=== PATIENT | male | born 1950 | race Caucasian/White ===

== ENCOUNTER → 2018-04-06 12:47 | Outpatient (REF) | payer MEDICARE, SELFPAY ==
[2018-04-06 19:13] LABS: Anion Gap 9.9 mmol/L (3-11); BUN 19 mg/dL (7-18); CO2 29.1 mmol/L (21.0-32.0); CREATININE 1.38 mg/dL (0.70-1.30); Chloride 102 mmol/L (98-107); Estimated GFR 51.24 (mL/min/1.73m2); Glucose 123 mg/dL (70-100); Potassium 3.9 mmol/L (3.5-5.1); Sodium 141 mmol/L (136-145)
== END ==
LOC: NCHCN 12:47
PROVIDERS: PCP Family Medicine; Visit Provider Family Medicine
DX: N28.9 Disorder of kidney and ureter, unspecified (principal)
CPT/HCPCS: 80048

== ENCOUNTER → 2018-04-16 00:30 | Outpatient (CLI) | payer MEDICARE, SELFPAY ==
--- NOTE | 2018-04-16 08:45 | MERGEMPI_ITS ---
*[facility]* *[facility]* [address] [place] [address] Myocardial Perfusion Imaging - SPECT Regadenoson Date of study: 04/16/2018 *PATIENT PRESENTATION* Height: 165.1cm (65in) Blood Pressure: Weight: 91.8kg (202lb) BSA: 2.09m^2 Referring physician: Kisha Owen Ordering physician: Tierney Jordan Impressions: - Abnormal study after pharmacologic stress. - Rec cardiac catheterization on basis of perfusion imaging. Summary: 1. Myocardial perfusion imaging: There is a moderate sized, moderately intense, predominantly reversible defect involving the inferior wall(s). This suggests moderate ischemia in the distribution of the right coronary artery. Overall ischemia: moderate. 2. No left ventricular regional motion abnormality. History: REASON FOR TESTING: RECENT CHEST PAIN WHILE IN HIS DOCTOR'S OFFICE. THIS IS DESCRIBED LEFT SIDEDPAIN THAT RADIATED UNDER LEFT ARM. PMH: AAA, COPD, DIABETES, GERD, ANXIETY, BIPOLA DISORDER. FAMILY HX: NONE SMOKING: QUIT 25 YEARS AGO. HAD SMOKED MUCH 2PPD. EXCERCISE: HAD BEEN WALKING 2.5 MILES DAILY, UNTIL IT GOT TOO HOT THIS SUMMER. PMH: COPD. Risk factors: Diabetes mellitus. Obesity. Cholesterol: 203mg/dl. HDL: 74mg/dl. LDL: 121mg/dl. Triglycerides: 80mg/dl. ALLERGIES: NSAIDS, ANTI-INFLAMMATORIES, ACETAMINOPHEN, LISINOPRIL. MEDICATIONS: ALBUTEROL SULFATE 8.5 GM 2 PUFFS Q6H NEEDED, ASPIRIN 325 MG 2 TABS NEEDED, BETAMETHASONE VALERATE 15 GM Q12 HS, CITALOPRAM 30 MG DAILY, CLOBETASOL PROPIIONATE 50 ML TOPICAL Q12H NEEDED, SLONAZEPAM 0.5 MG BID, DIPHENHYDRAMINE 25-50 MG NEEDED, FLUTICASONE PROPIONATE 2 SPRAYS NEEDED, FLUTICASONE/SALMETROL 500-50 2 PUFFS BID. Imaging Technique: Protocol: Regadenoson. Acquisition: Gated SPECT; 1 day - rest/stress. The patient was imaged in the supine position. Attenuation correction used. Isotope administration: - Rest. Tc[99m]-sestamibi. Dose: 10.4mCi. Injection time: 08:50 AM. Injection to stress time: 00:45. - Stress. Tc[99m]-sestamibi. Dose: 33.2mCi. Injection time: 11:05 AM. 1-2 min before end of exercise Baseline ECG: LAST EKG 11/05/14- SINUS RHYTHM. TODAY'S EKG-SINUS BRADYCARDIA, HR 56. Stress protocol: +--------+--+ + + !Stage !HR!BP (mmHg) !Comments ! +--------+--+ + + !Baseline!57!131/70 (90)! ! +--------+--+ + + !1 min !75!130/60 (83)!Inject Regadenoson.! +--------+--+ + + !3 min !90!124/70 (88)! ! +--------+--+ + + !6 min !84!120/76 (91)! ! +--------+--+ + + !9 min !79!118/60 (79)! ! +--------+--+ + + * Stress results: The rate-pressure product for the peak heart rate and blood pressure was [id number] Hg/min. Stress ECG: LEXISCAN TESTING ENDED IN 9 MINS, 0 SECS VITAL SIGNS RETURNED TO BASELINE. MAX HR WAS 100, WITH A HYPOTENSIVE BLOOD PRESSURE RESPONSE. ECTOPY: NONE NOTED. ANGINA: PT REPORTED 6/10 LEFT SIDED CHEST PAIN AT 1 MINUTE OF TESTING, 5/10 AT 3 MINS, 3/10 AT 5 MINS, AND 0/10 AT DISCHARGE. ISCHEMIA: NO ISCHEMIC CHANGES NOTED. Myocardial perfusion: Imaging information: gated. There is a moderate sized, moderately intense, predominantly reversible defect involving the inferior wall(s). This suggests moderate ischemia in the distribution of the right coronary artery. Overall ischemia: moderate. Ventricular Function (Wall Motion): The calculated left ventricular ejection fraction after stress: 50%. No left ventricular regional motion abnormality. Study data: Cyril Avalos MD supervised and was readily available during the procedure. This study was interpreted by [facility]. Study status: Routine. Consent: The risks, benefits, and alternatives to the procedure were explained to the patient and informed consent was obtained. Procedure: Initial setup. A baseline ECG was recorded. Surface ECG leads and manual cuff blood pressure measurements were monitored. Heart sounds: Normal. Lung sounds: Normal. Regadenoson stress test. Stress testing was performed, with regadenoson by intravenous bolus, for a total dose of 0.4mgover 10.00sec, followed by a 5ml saline flush. The infusion was terminated due to per protocol. The patient was unable to exercise due to deconditioning and or frailty. Study completion: All catheters inserted during the procedure were removed. The patient tolerated the procedure well and was discharged from the lab. Discharge: The patient left the laboratory in stable condition. Birthdate: Patient birthdate: 1950. Sex: Gender: male. Study date: Study date: 04/16/2018. Study time: 12:30 PM. Electronically signed by Cyril Avalos MD 04/16/2018 17:34
[2018-04-16] MEDS: Regadenoson 0.4 MG/5 ML SYR IVP (10:59)
== END ==
PROVIDERS: PCP Family Medicine; Visit Provider Family Medicine
DX: R07.9 Chest pain, unspecified (principal); R06.02 Shortness of breath; R94.30 Abnormal result of cardiovascular function study, unspecified; E11.9 Type 2 diabetes mellitus without complications; J44.9 Chronic obstructive pulmonary disease, unspecified; I71.4 Abdominal aortic aneurysm, without rupture; F41.9 Anxiety disorder, unspecified; Z87.891 Personal history of nicotine dependence
CPT/HCPCS: 78452; 93016 ×2; 93017; 93018 ×2; J2785

== ENCOUNTER 2018-05-03 11:57 | Outpatient (REF) | payer MEDICARE, SELFPAY ==
[2018-05-03 21:13] LABS: Prothrombin Time 9.9 sec (9.3-10.8)
[2018-05-03 21:15] LABS: ALT 36 U/L (12-78); AST 37 U/L (15-37); Albumin 3.6 g/dL (3.4-5.0); Alkaline Phosphatase 118 U/L (46-116); Anion Gap 5.6 mmol/L (3-11); BUN 27 mg/dL (7-18); Bilirubin, Total 0.5 mg/dL (0.2-1.0); CO2 29.4 mmol/L (21.0-32.0); CREATININE 1.29 mg/dL (0.70-1.30); Calcium 8.5 mg/dL (8.5-10.1); Chloride 104 mmol/L (98-107); Estimated GFR 55.39 (mL/min/1.73m2); Glucose 83 mg/dL (70-100); Potassium 4.2 mmol/L (3.5-5.1); Sodium 139 mmol/L (136-145); Total Protein 7.2 g/dL (6.4-8.2)
[2018-05-03 21:16] LABS: Abs Immature Grans 0.02 k/cumm (0.0-0.09); Absolute Basophil Count 0.04 k/cumm (0.0-0.2); Absolute Eosinophil Count 0.27 k/cumm (0.0-0.7); Absolute Lymphocyte Count 1.73 k/cumm (1.2-3.4); Absolute Monocyte Count 0.56 k/cumm (0.11-0.7); Absolute Neutrophil Count 6.07 k/cumm (1.2-6.7); Basophils % 0.5; Eosinophils % 3.1; HCT 48.2 % (40.0-50.0); HGB 15.6 g/dL (13.5-17.5); Immature Grans % 0.2; Lymphocytes % 19.9; Mean Corp. HGB Concentration 32.4 g/dL (32.0-36.0); Mean Corpuscular Hemoglobin 30.6 pg (27.0-33.0); Mean Corpuscular Volume 94.5 fL (80-95); Mean Platelet Volume 11.1 fL (8.0-11.0); Monocytes % 6.4; Neutrophils % 69.9; Platelet Count 139 x1000/uL (130-400); RBC Distribution Width 14.9 % (11.8-14.1); White Blood Cell Count 8.69 k/cumm (4.4-10.8)
== END 2018-05-03 12:17 ==
LOC: LBN 11:57
PROVIDERS: PCP Family Medicine; Visit Provider Internal Medicine Cardiovascular Disease
DX: R07.9 Chest pain, unspecified (principal)
CPT/HCPCS: 80053; 85025; 85610

== ENCOUNTER 2018-08-30 21:33 | Outpatient (REF) | payer MEDICARE, SELFPAY ==
[2018-08-30 22:19] LABS: ALT 37 U/L (12-78); AST 34 U/L (15-37); Albumin 3.7 g/dL (3.4-5.0); Alkaline Phosphatase 120 U/L (46-116); Anion Gap 11.3 mmol/L (3-11); BUN 21 mg/dL (7-18); Bilirubin, Total 0.9 mg/dL (0.2-1.0); CO2 28.7 mmol/L (21.0-32.0); CREATININE 1.27 mg/dL (0.70-1.30); Calcium 9.1 mg/dL (8.5-10.1); Chloride 101 mmol/L (98-107); Cholesterol 153 mg/dL (50-200); Glucose 74 mg/dL (70-100); HDL Cholesterol 61 mg/dL (40-60); LDL CHOLESTEROL 76 mg/dL (<100); Potassium 3.6 mmol/L (3.5-5.1); Sodium 141 mmol/L (136-145); Total Protein 7.1 g/dL (6.4-8.2); Triglyceride 75 mg/dL (30-150)
== END 2018-08-30 21:53 ==
LOC: NCHCN 21:33
PROVIDERS: PCP Family Medicine; Visit Provider Family Medicine
DX: N28.9 Disorder of kidney and ureter, unspecified (principal); E78.5 Hyperlipidemia, unspecified; I10 Essential (primary) hypertension
CPT/HCPCS: 80053; 80061; 83721

== ENCOUNTER 2018-12-29 04:37 | Emergency (ER) | payer MEDICARE, SELFPAY ==
[2018-12-29] VITALS (14 sets, daily range): BP systolic 114–118; BP diastolic 66–68; PULSE 62–81; RESP 10–24; TEMP 37.1; O2SAT 95–98
--- NOTE | 2018-12-29 04:47 | W.ED.GENAD ---
Discharge Plan Disposition Patient Disposition: HOME Condition: Good Discharge Details Chief Complaint: Chest Pain Clinical Impression: Atypical chest pain Primary Care Provider: Tierney Jordan V ED Provider: Pranay Ziegler [place] Meds and New Rx's Prescriptions: Continued albuterol sulfate 8.5 GM HFA aerosol inhaler 2 puff Inhalation Q6H PRN RF: 0 fluticasone propionate [Flonase] 16 GM spray,suspension 50 mcg NS BID PRNRF: 0 betamethasone valerate 15 GM ointment 15 gm Topical Q12H PRN RF: 0 pantoprazole [Protonix] 40 MG tablet,delayed release (DR/EC) 40 mg PO DAILY RF: 0 clobetasol 50 ML solution 50 ml Topical Q12H PRN RF: 0 clonazepam 0.5 MG tablet 0.5 mg PO BID RF: 0 ziprasidone HCl [Geodon] 20 MG capsule 20 mg PO BID RF: 0 triamcinolone acetonide 80 GM cream Topical PRN PRNRF: 0 citalopram 20 MG tablet 30 mg PO DAILY RF: 0 diphenhydramine HCl 25 MG capsule 25 - 50 mg PO PRN PRNRF: 0 fluticasone propion-salmeterol [Advair Diskus] 1 EACH blister with device 2 puff Inhalation BID RF: 0 hydrochlorothiazide 12.5 MG capsule 12.5 mg PO DAILY RF: 0 nitroglycerin 0.4 mg Tablet, Sublingual 0.4 mg Sublingual PRN PRNRF: 0 aspirin 325 MG tablet 2 tab PO PRN PRNRF: 0 Discharge Instructions Additional Instructions: Your EKG is normal. Your chest x-ray is unremarkable. Given normal cardiac catheterization last fall with a normal EKG and not suspicious at all that this is cardiac chest pain. Follow-up with primary care next week. Return to ED if you develop new and persistent chest pain, shortness of breath, fever. Referrals: Tierney Jordan MD [Primary Care Provider] - Medical Decision Making Patient presents to ED with complaint of fleeting sharp chest pain that lasts 10 seconds under his left breast. He has had it previously. He had a normal coronary catheterization in April 2018. He has no shortness of breath. He has no fever or cough. Pain is random and intermittent. Never last longer than 10 seconds. He does not have pain currently. I am able to reproduce his pain fairly focally with one fingertip under the left breast. His EKG is normal. Given his recent normal cardiac catheterization and his lack of exertional component with the random fleeting nature of the pain I do not at all feel this is cardiac. He has no change in his respiratory status. He has no shortness of breath. He is still able to walk a couple of miles. I do not suspect pulmonary embolus. I do not think laboratory studies are necessary at all. I will get a chest x-ray and if unremarkable will plan discharge with presumed chest wall pain and have him follow-up with primary care. Patient's chest x-ray per my review as well as preliminary radiology read is negative. Patient has remained stable in the department. He is discharged home with instructions to follow-up with primary care next week. Return to ED for fever, shortness of breath, persistent chest pain, other concerns or problems. Medical Records Medical records reviewed: Yes I reviewed the patient's medical records. ECG Data Attestation: I personally reviewed and interpreted this ECG (s) as follows: Interpretation: Normal sinus rhythm at 72. Normal axis and intervals. Normal ST segments. HPI General Mode of arrival: ambulatory. Date/Time Provider Initiated Documentation: 12/29/18 04:38. Limitations to Documentation: no limitations. Information obtained by: patient and old records reviewed. HPI Narrative: Patient presents to ED for evaluation of intermittent left-sided sharp stabbing chest pain. Patient has had it previously. He has not had it for a while until the last week. He describes it as a sharp stabbing pain that lasts for 10 seconds and resolves. It is random in nature. It comes and goes throughout the day and night. It is not associated with exertion. He walks a couple miles a day with no issues other than when he gets a little short of breath going uphill. He has had no change in his breathing. He has no fever or cough. There is no radiation of the pain. He decided that since he had to go to the store this morning that he would stop here in the ED just to have it checked out. He is currently not having pain. He had an abnormal stress test last year and underwent cardiac catheterization in April 2018 at [facility]. I have reviewed those records and he had a completely normal coronary artery cath. Related Data Home Medications Medication Instructions Recorded Confirmed citalopram 30 mg PO DAILY 11/30/12 12/29/18 clonazepam 0.5 mg PO BID 11/30/12 12/29/18 triamcinolone acetonide 0 gm TOPICAL PRN PRN 11/30/12 12/29/18 ziprasidone HCl [Geodon] 20 mg PO BID 11/30/12 12/29/18 albuterol sulfate 2 puff INHALATION Q6H PRN inhaler 10/02/13 12/29/18 NS fluticasone propionate [Flonase] 50 mcg NS BID PRN spray NS 10/02/13 12/29/18 diphenhydramine HCl 25 - 50 mg PO PRN PRN 10/23/13 12/29/18 betamethasone valerate 15 gm TOPICAL Q12H PRN script 06/06/14 12/29/18 clobetasol 50 ml TOPICAL Q12H PRN script 06/06/14 12/29/18 pantoprazole [Protonix] 40 mg PO DAILY tab-cap 06/06/14 12/29/18 fluticasone propion-salmeterol 2 puff INHALATION BID 11/05/14 12/29/18 [Advair Diskus] hydrochlorothiazide 12.5 mg PO DAILY 02/09/17 12/29/18 aspirin 2 tab PO PRN PRN 06/14/17 12/29/18 nitroglycerin 0.4 mg SUBLINGUAL PRN PRN 12/29/18 12/29/18 Allergies Allergy/AdvReac Type Severity Reaction Status Date / Time lisinopril Allergy Severe Unverified 12/29/18 04:57 NSAIDS (Non-Steroidal Allergy Severe tongue Unverified 12/29/18 04:57 Anti-Inflamma swells acetaminophen AdvReac Intermediate MONITORING Unverified 12/29/18 04:57 LIVER PANELS Review of Systems Review of Systems As documented in HPI otherwise negative as below. Const: no fever, chills, weakness Resp: no cough, SOB, pleuritic pain CV: fleeting CP; no diaphoresis, edema, syncope GI: no abdominal pain, nausea, vomiting, diarrhea Neuro: no headache, numbness, focal weakness, confusion PFSH Medical History AAA (abdominal aortic aneurysm) (Chronic) Anxiety (Chronic) Bipolar disorder (Chronic) COPD (chronic obstructive pulmonary disease) (Chronic) GERD (gastroesophageal reflux disease) (Chronic) HTN (hypertension) (Chronic) Hypercholesterolemia (Chronic) Surgical History Status post rotator cuff repair (Inactive 10/28/13) Status post excisioni distal clavicle, left (Inactive 10/28/13) H/O cataract extraction (Chronic) S/P hernia repair (Resolved) Colonoscopy - MAC (Inactive 06/19/17) Social History Smoking/Tobacco Use Status: Former Tobacco Use Alcohol Intake: former Drug use: Never Do you feel safe at home: Yes Do you feel safe in your relationship?: Yes Exam Narrative Exam Narrative: Vitals: Normal with normal pulse ox. Const: WDWN male in NAD. Neck: Supple. Trachea midline. Lungs: Normal respiratory effort. Lungs are clear. Cor: RRR without murmur/gallop. Good radial pulses. Chest: Focal reproducible chest wall pain with palpation just under left breast pain. GI: Soft. NT/ND. No guarding or rebound. Neuro: A+O x 3. CN grossly in tact. Good strength and no focal deficit. Ext: No C/C/E. No deformity or tenderness. Skin: Warm and dry without rash.
--- NOTE | 2018-12-29 05:30 | DI.RAD_ITS ---
SYMPTOM/DIAGNOSIS: CHEST PAIN PA AND LATERAL CHEST: The heart is not enlarged. The lungs appear generally clear with minimal left basilar scarring. No pleural effusion is seen. CONCLUSION: No evidence of acute disease. No change from 11/30/12.
--- NOTE | 2018-12-29 05:39 | DI.VRAD_ITS ---
EXAM: XR Chest, 2 Views EXAM DATE/TIME: 12/29/2018 5:34 AM CLINICAL HISTORY: 68 years old, male; Chest pain; Type not specified TECHNIQUE: Imaging protocol: XR of the chest, 2 views. COMPARISON: CR CHEST 2 VIEWS PA,LAT 11/30/2012 10:18 AM FINDINGS: Lungs: Unremarkable. No consolidation. Pleural space: Unremarkable. No evidence of pneumothorax. Heart/Mediastinum: Unremarkable. Heart size within normal limits for technique. Bones/joints: Unremarkable. IMPRESSION: No acute findings. Dictated and Authenticated by: Guero Wright MD. Ordering:AAKASH Pires MD
== END 2018-12-29 06:40 | disposition home or self-care (01) ==
PROVIDERS: Emergency Provider Emergency Medicine; PCP Family Medicine
DX: R07.89 Other chest pain (principal); I71.4 Abdominal aortic aneurysm, without rupture; I10 Essential (primary) hypertension; J44.9 Chronic obstructive pulmonary disease, unspecified
CPT/HCPCS: 93005; 99284; 71046; 93010

== ENCOUNTER 2019-01-08 12:14 | Outpatient (CLI) | payer MEDICARE, SELFPAY ==
[2019-01-08 12:36] LABS: Abs Immature Grans 0.01 k/cumm (0.0-0.09); Absolute Basophil Count 0.04 k/cumm (0.0-0.2); Absolute Eosinophil Count 0.28 k/cumm (0.0-0.7); Absolute Lymphocyte Count 1.81 k/cumm (1.2-3.4); Absolute Monocyte Count 0.58 k/cumm (0.11-0.7); Absolute Neutrophil Count 4.88 k/cumm (1.2-6.7); Basophils % 0.5; Eosinophils % 3.7; HCT 46.7 % (40.0-50.0); HGB 15.3 g/dL (13.5-17.5); Immature Grans % 0.1; Lymphocytes % 23.8; Mean Corp. HGB Concentration 32.8 g/dL (32.0-36.0); Mean Corpuscular Volume 94.5 fL (80-95); Mean Platelet Volume 9.9 fL (8.0-11.0); Monocytes % 7.6; Neutrophils % 64.3; Platelet Count 152 x1000/uL (130-400); RBC 4.94 m/cumm (4.50-6.00); RBC Distribution Width 15.1 % (11.8-14.1)
--- NOTE | 2019-01-08 12:40 | DI.RAD_ITS ---
SYMPTOMS/DIAGNOSIS: RT KNEE PAIN, M25.561 RIGHT KNEE: The joint spaces are well maintained. There is no significant periarticular spurring. No joint effusion is seen. Venous varicosities are noted in the calf region.
[2019-01-08 13:46] LABS: BUN 22 mg/dL (7-18); CREATININE 1.24 mg/dL (0.70-1.30); Calcium 9.1 mg/dL (8.5-10.1); Chloride 101 mmol/L (98-107); Estimated GFR 57.97 (mL/min/1.73m2); Glucose 113 mg/dL (70-100); NT-proBNP 26 pg/mL; Potassium 4.2 mmol/L (3.5-5.1); Sodium 140 mmol/L (136-145)
== END 2019-01-08 12:34 ==
PROVIDERS: PCP Family Medicine; Visit Provider Nurse Practitioner Family
DX: M25.561 Pain in right knee (principal); R06.09 Other forms of dyspnea
CPT/HCPCS: 36415; 73562; 80048; 83880; 85025

== ENCOUNTER 2019-01-11 01:16 | Outpatient (CLI) | payer MEDICARE, SELFPAY ==
--- NOTE | 2019-01-11 12:45 | DI.CT_ITS ---
SYMPTOMS/DIAGNOSIS: DYSPNEA ON EXERTION, R06.[address]: Post contrast exam was performed. The exam is limited by patient body habitus and respiratory motion. The heart size is normal. There is mild calcification at the aortic arch. The aorta is normal in diameter. There is mild atherosclerotic change of the descending aorta. No mass or adenopathy is seen. There are no pleural or pericardial effusions or evidence of infiltrates. The lungs are suboptimally evaluated due to respiratory motion. There is no evidence of a focal infiltrate. There are no visible pulmonary nodules or significant emphysematous or fibrotic changes. No suspicious bony abnormalities are identified. The visualized portions of the upper abdomen are unremarkable. IMPRESSION: Exam is somewhat limited by respiratory motion. No acute abnormality is seen.
[2019-01-11] MEDS: Omnipaque 350 MG/ML 100 ML BTL IJ (13:14)
== END 2019-01-11 01:36 ==
PROVIDERS: PCP Family Medicine; Visit Provider Nurse Practitioner Family
DX: R06.00 Dyspnea, unspecified (principal)
CPT/HCPCS: 71260; J3490

== ENCOUNTER 2019-04-10 03:57 | Outpatient (CLI) | payer MEDICARE, SELFPAY ==
--- NOTE | 2019-04-10 11:10 | DI.RAD_ITS ---
SYMPTOMS/DIAGNOSIS: CERVICALGIA, M54.2 CERVICAL SPINE: Comparison is made with [id number]. The disc spaces are well maintained in height. There are minimal endplate osteophytes. There are facet degenerative changes greatest at C 3 - 4. There is no significant neural foraminal narrowing at any level. The alignment appears normal. IMPRESSION: Mild degenerative changes.
== END 2019-04-10 04:17 ==
PROVIDERS: PCP Family Medicine; Visit Provider Family Medicine
DX: M54.2 Cervicalgia
CPT/HCPCS: 72050

== ENCOUNTER 2019-08-09 10:31 | Outpatient (REF) | payer MEDICARE, SELFPAY ==
[2019-08-09 18:47] LABS: ALT 26 U/L (16-63); AST 24 U/L (15-37); Albumin 3.8 g/dL (3.4-5.0); Alkaline Phosphatase 88 U/L (46-116); Anion Gap 7.9 mmol/L (3-11); BUN 21 mg/dL (7-18); Bilirubin, Total 0.6 mg/dL (0.2-1.0); CO2 30.1 mmol/L (21.0-32.0); CREATININE 1.25 mg/dL (0.70-1.30); Calcium 9.2 mg/dL (8.5-10.1); Chloride 101 mmol/L (98-107); Estimated GFR 57.27 (mL/min/1.73m2); Glucose 84 mg/dL (74-106); Potassium 3.8 mmol/L (3.5-5.1); Sodium 139 mmol/L (136-145); Total Protein 7.2 g/dL (6.4-8.2)
== END 2019-08-09 10:51 ==
LOC: NCHCN 10:31
PROVIDERS: PCP Family Medicine; Visit Provider Family Medicine
DX: E11.9 Type 2 diabetes mellitus without complications (principal); E78.5 Hyperlipidemia, unspecified; N28.9 Disorder of kidney and ureter, unspecified
CPT/HCPCS: 80053

== ENCOUNTER 2019-08-23 03:14 | Outpatient (CLI) | payer MEDICARE, SELFPAY ==
--- NOTE | 2019-08-23 09:01 | DI.MRI_ITS ---
EXAM: MR CERVICAL SPINE WO CLINICAL HISTORY: CERVICALGIA M54.2. TECHNIQUE: Multiplanar multisequence MRI was performed. COMPARISON: No exams were available for comparison FINDINGS: MR examination of the cervical spine was performed according to usual protocol. No significant bony signal abnormality seen. Images obtained through the posterior fossa are. Spinal cord shows normal s ignal and normal diameter throughout. No significant findings at C2-3 level. At C3-4 there is a question of mild left neural foraminal narrowing. At C4-5 there is possible slight bilateral neural foraminal narrowing. At C5-6 there is a left paracentral disc herniation without evident impingement on the cord. There i s left-sided neural foraminal narrowing noted at this level. At C 6-7 there is bilateral neural foraminal narrowing. Prominence of the disc osteophyte complex al so noted left lateral which contributes to increased neural foraminal narrowing on the left compared to the right. No significant findings at C7-T1. IMPRESSION: Left paracentral/left lateral disc herniation at C5-6, bilateral neural foraminal narrowing left grea ter than right noted at this level. No gross impingement on spinal cord but there may be nerve root impingement on the left at this level.
== END 2019-08-23 03:34 ==
PROVIDERS: PCP Family Medicine; Visit Provider Family Medicine
DX: M50.222 Other cervical disc displacement at C5-C6 level (principal); M99.51 Intervertebral disc stenosis of neural canal of cervical region
CPT/HCPCS: 72141

== ENCOUNTER 2020-01-28 08:07 | Outpatient (CLI) | payer MEDICARE, SELFPAY ==
[2020-01-29 12:55] LABS: COVID-19 RT-PCR Result NEGATIVE (Negative)
== END 2020-01-28 08:27 ==
PROVIDERS: PCP Family Medicine; Visit Provider Family Medicine
DX: Z11.59 Encounter for screening for other viral diseases (principal)
CPT/HCPCS: U0003

== ENCOUNTER → 2020-02-19 09:04 | Outpatient (BNVA) | payer MEDICARE, SELFPAY | PROVIDERS: PCP Family Medicine; Referring Provider Family Medicine; Visit Provider Nurse Practitioner Gerontology | DX: N52.8 Other male erectile dysfunction (principal); R35.0 Frequency of micturition; J44.9 Chronic obstructive pulmonary disease, unspecified; E11.9 Type 2 diabetes mellitus without complications; I10 Essential (primary) hypertension; Z87.891 Personal history of nicotine dependence | CPT/HCPCS: 99204; 99215 ==

== ENCOUNTER 2020-04-23 09:07 | Outpatient (CLI) | payer MEDICARE, SELFPAY ==
--- NOTE | 2020-04-23 06:00 | DI.RAD_ITS ---
EXAM: XR PAIN CLINIC CERVICAL SP 2V CLINICAL HISTORY: Dx: Cervical Spondylosis TECHNIQUE: 2D and realtime digital imaging was performed. Fluoroscopy was provided in the OR COMPARISON: No exams were available for comparison FINDINGS: C-arm fluoroscopy was utilized by Dr. Pablo during reported cervical RF ablation. Hard copies show ne edles overlying posterior elements the cervical spine at what appear to be C3-4 and C4-5 levels. Fluoro time, 100 seconds. IMPRESSION: RADIATION DOSE DELIVERED: Total DLP
[2020-04-23 09:18] VITALS: BP 116/91; PULSE 79; RESP 16; TEMP 36.5; O2SAT 94
[2020-04-23] MEDS: Lactated Ringers 1,000 ML 80 ML IV (09:39)
[2020-04-23] MEDS: fentaNYL 100 MCG/2 ML VIAL IVP (09:43)
[2020-04-23] MEDS: Midazolam 2 MG/2 ML VIAL IVP (09:44)
[2020-04-23 10:24] VITALS: BP 127/74; PULSE 74; RESP 16; O2SAT 96
[2020-04-23] MEDS: Lidocaine 2% Pres-Free 5 ML VIAL IJ (10:27)
[2020-04-23] MEDS: Dexamethasone Sod. Phos./Pres-Free 10 MG/ML VIAL IJ (10:27)
[2020-04-23] MEDS: Bupivacaine 0.5% Pres-Free 10 ML VIAL IJ (10:27)
--- NOTE | 2020-04-23 10:33 | PDOC.PAIN ---
Pain Clinic Procedure Note Procedure Note Procedure Note: Cervical Radiofrequency with Coolief Machine PROCEDURE NOTE Date of Service: April 23, 2020 Patient: ERLIN TEMPLE Provider: Gene Pablo DO, MPH Pre Operative Diagnosis: Cervical spondylosis without myelopathy Post Operative Diagnosis: Cervical spondylosis without myelopathy PROCEDURE: 1. C3-C4 facet joint radiofrequency denervation 2. C4-C5 facet joint radiofrequency denervation 3. C5-C6 facet joint radiofrequency denervation ERLIN TEMPLE was brought to the operating room and placed on the exam table in a comfortable in the right lateral recumbant. The place for the needle placement was obtained by manual palpation as well as radiographic confirmation. The sterile field was prepped by chlorhexidine and sterile drapes. Local anesthesia, both superficial and deep was provided by local infiltration of 8 ml Lidocaine 1%. Using fluoroscopic guidance, A 17g 50 mm radiofrequency introducer needle with a 2 mm active tip was placed overlying the left C3 cervical vertebra from the posterior approach and was advanced until bony contact was felt with the articular pillar. The needle was walked off the pillar, maintaining contact with the bone. Attempted aspiration revealed no blood or cerebrospinal fluid. Radiographs were then made in AP and lateral. Motor testing was then performed with 2.0 volts and no upper extremity motor stimulation was observed. 1 cc of the 5ml Lidocaine was injected through the RF needle. A radiofrequency lesion of the left medial branch of C3 was then performed at 80 degrees Celsius for 2 minutes and 30 seconds. The same procedure was repeated for LEFT C4, C5 and C6 medial branches. POST PROCEDURE EVALUATION: Follow up plans and appointments were discussed with the ERLIN . Post procedure instruction was given as documented in nursing documentation and having met discharge criteria, ERLIN was discharged from the [facility]. COMMENTS: No complications. F/U with our office as needed. I personally performed this entire procedure. Gene Pablo DO, MPH Attending Physician
== END 2020-04-23 09:27 ==
PROVIDERS: PCP Family Medicine; Visit Provider Preventive Medicine Occupational Medicine
DX: M47.812 Spondylosis without myelopathy or radiculopathy, cervical region (principal)
CPT/HCPCS: 64633; 64634; 72040; J2250; J3010

== ENCOUNTER 2020-06-10 15:36 | Outpatient (CLI) | payer MEDICARE, SELFPAY ==
--- NOTE | 2020-06-10 11:30 | DI.RAD_ITS ---
EXAM: XR KNEE RT 2V AP,LAT CLINICAL HISTORY: pain. TECHNIQUE: 2D digital imaging was performed. COMPARISON: CR XR knee RT 3V AP,lat,oralia from 01/08/2019 FINDINGS: BONES: No acute fracture is present. No bony destructive lesion is seen. JOINTS: The knee is normally aligned. No joint effusion is seen. SOFT TISSUE: Normal. IMPRESSION: Unremarkable radiographs of the right knee. DATA REPOSITORY: RADIATION DOSE DELIVERED:
--- NOTE | 2020-06-10 11:45 | DI.RAD_ITS ---
EXAM: XR HIP RT COMPLETE AP PELVIS CLINICAL HISTORY: pain. TECHNIQUE: 2D digital imaging was performed. COMPARISON: No exams were available for comparison FINDINGS: BONES: No acute fracture is present. No bony destructive lesion is seen. JOINTS: No dislocation present. Mild joint space narrowing of the right hip is noted. Mild degenerat yadira changes are seen at L4-L5 in the lumbar spine. There is also mild joint space narrowing of the l eft hip. SOFT TISSUE: Normal. IMPRESSION: Mild narrowing of the hip joints bilaterally. DATA REPOSITORY: RADIATION DOSE DELIVERED:
== END 2020-06-10 15:56 ==
PROVIDERS: PCP Family Medicine; Referring Provider Family Medicine; Visit Provider Orthopaedic Surgery
DX: M25.561 Pain in right knee (principal); M25.551 Pain in right hip; M25.852 Other specified joint disorders, left hip; M25.851 Other specified joint disorders, right hip; J44.9 Chronic obstructive pulmonary disease, unspecified; Z87.891 Personal history of nicotine dependence; I10 Essential (primary) hypertension
CPT/HCPCS: 99214; 73502; 73560

== ENCOUNTER 2020-06-11 08:25 | Outpatient (CLI) | payer MEDICARE, SELFPAY ==
--- NOTE | 2020-06-11 06:00 | DI.RAD_ITS ---
EXAM: XR PAIN CLINIC CERVICAL SP 2V CLINICAL HISTORY: Dx:Cervical Spondylosis TECHNIQUE: 2D and realtime digital imaging was performed. CONTRAST MATERIAL: Refer to procedure report. COMPARISON: No exams were available for comparison FINDINGS: Fluoroscopy was provided for Dr. Pablo during the performance of a cervical medial branch block. Ple ase refer to the procedure report for complete details. Fluoro time: 49.4 seconds IMPRESSION:
[2020-06-11 08:58] VITALS: BP 136/74; PULSE 76; RESP 17; TEMP 36.7; O2SAT 96
[2020-06-11] MEDS: Omnipaque 240 MG/ML 50 ML BTL IJ (09:46)
[2020-06-11] MEDS: Bupivacaine 0.5% Pres-Free 10 ML VIAL IJ (09:51)
[2020-06-11 09:58] VITALS: BP 120/75; PULSE 64; RESP 14; O2SAT 94
--- NOTE | 2020-06-11 10:05 | PDOC.PAIN ---
Pain Clinic Procedure Note Procedure Note Procedure Note: CERVICAL MEDIAL BRANCH BLOCKS ERLIN TEMPLE has been referred to the [facility] for cervical medial branch blocks. COMMENTS: He has done very well with the left sided cervical medial branch RFA from 04/23/20. DX: Cervical spondylosis without myelpathy MAVERICK was interviewed and the medical record reviewed. There were no medical, pharmacologic, radiographic or other structural contraindications to attempting fluoroscopically guided local anesthetic cervical medial branch blocks. Risks and expected side effects as well as potential benefit of the procedure were reviewed with MAVERICK, and MAVERICK's voiced concerns addressed. The printed consent form was signed and witnessed. Standard time-out procedure was performed. MAVERICKwas placed in the Left lateral decubitus position on the fluoroscopy table and automated blood pressure cuff and pulse oximeter applied. The skin entry points for approaching the anatomic target points of the segmental medial branches of Right C3-C6 were identified with fluoroscopy and marked. Following thorough Chlorhexadine preparation of the skin and draping and 1% lidocaine infiltration of the skin entry points and subcutaneous tissues, a 25 gauge spinal needle was placed under fluoroscopic guidance down on to the target point for each respective segmental medial branch. Position was confirmed in A/P and leteral views with 0.25ml of omnipaque 240 injected at each level. At each point 0.3ml 0.5% bupivicaine was injected. ZULMAs vital signs were stable throughout the procedure and were as recorded in the docflowsheet by the nursing staff. Follow up plans and appointments were discussed with MAVERICK. MAVERICK was instructed to keep careful note of how the usual pain was modified by these injections. Specifically, the patient was asked to keep a pain diary for the next 24 hours using a numeric pain scale of 0-10 and report these results at the follow-up visit. Post procedure instruction was given as documented in the nursing documentation and having met discharge criteria, Kimber was discharged from the [facility]. Based on the medial branches blocked today, if they patient has adequate relief and we are able to proceed to radiofrequency ablation, the treatment should result in the denervation of the right C3-C4, C4-C5, and C5-C6 FACET JOINTS. We would expect to denervate a total of 3 facets during the radiofrequency ablation. COMMENTS: He will call back with his 1-4 hour post-procedural pain logs. CC: Tierney Jordan V
== END 2020-06-11 08:45 ==
PROVIDERS: PCP Family Medicine; Visit Provider Preventive Medicine Occupational Medicine
DX: M47.812 Spondylosis without myelopathy or radiculopathy, cervical region (principal)
CPT/HCPCS: 64490; 64491; 64492; 72040; Q9967

== ENCOUNTER 2020-07-14 11:23 | Outpatient (CLI) | payer MEDICARE, SELFPAY ==
--- NOTE | 2020-07-14 11:15 | DI.RAD_ITS ---
EXAM: XR KNEE LT 2V AP,LAT CLINICAL HISTORY: L knee pain. TECHNIQUE: 2D digital imaging was performed. COMPARISON: CR XR KNEE RT 2V AP,LAT from 06/10/2020 FINDINGS: BONES: No acute fracture is present. No bony destructive lesion is seen. There is a small enthesophy te at the superior aspect of the patella. JOINTS: The knee is normally aligned. No joint effusion is seen. SOFT TISSUE: Normal. IMPRESSION: Normal radiographs of the left knee. DATA REPOSITORY: RADIATION DOSE DELIVERED:
== END 2020-07-14 11:43 ==
PROVIDERS: PCP Family Medicine; Referring Provider Family Medicine; Visit Provider Orthopaedic Surgery
DX: M25.562 Pain in left knee (principal); M17.11 Unilateral primary osteoarthritis, right knee; M17.12 Unilateral primary osteoarthritis, left knee; M25.561 Pain in right knee; J44.9 Chronic obstructive pulmonary disease, unspecified; I10 Essential (primary) hypertension; E11.9 Type 2 diabetes mellitus without complications
CPT/HCPCS: 20610; 99213; 73560; J1040

== ENCOUNTER → 2020-08-04 09:12 | Outpatient (BNVA) | payer MEDICARE, SELFPAY | PROVIDERS: PCP Family Medicine; Referring Provider Family Medicine; Visit Provider Orthopaedic Surgery | DX: M25.562 Pain in left knee (principal); M70.61 Trochanteric bursitis, right hip | CPT/HCPCS: 20610; 99214; J1040 ==

== ENCOUNTER 2020-11-26 13:38 | Outpatient (REF) | payer MEDICARE, SELFPAY ==
[2020-11-26 15:13] LABS: HCT 48.2 % (40.0-50.0); HGB 15.9 g/dL (13.5-17.5); MCH 31.8 pg (27.0-33.0); MCV 96.4 fL (80-95); MPV 11.2 fL (8.0-11.0); Platelet Count 189 10^3/uL (130-400); RDW 13.1 % (11.8-14.1); RDW-SD 46.6 fL; WBC 8.78 10^3/uL (4.4-10.8)
[2020-11-26 15:50] LABS: ALT 53 U/L (16-63); AST 70 U/L (15-37); Albumin 3.9 g/dL (3.4-5.0); Alkaline Phosphatase 113 U/L (46-116); Anion Gap 12.9 mmol/L (3-11); BUN 20 mg/dL (7-18); Bilirubin, Total 0.5 mg/dL (0.2-1.0); CO2 29.1 mmol/L (21.0-32.0); CREATININE 1.4 mg/dL (0.70-1.30); Calcium 9.5 mg/dL (8.5-10.1); Chloride 99 mmol/L (98-107); Glucose 108 mg/dL (74-106); Potassium 3.9 mmol/L (3.5-5.1); Sodium 141 mmol/L (136-145); Total Protein 7.9 g/dL (6.4-8.2)
[2020-11-26 21:44] LABS: Rheumatoid Factor <8.6 IU/mL (<12.0)
[2020-11-27 14:59] LABS: ANA Interpretation Negative (Negative)
== END 2020-11-26 13:39 | disposition home or self-care (01) ==
LOC: NCHCN 13:38
PROVIDERS: PCP Family Medicine; Visit Provider Family Medicine
DX: E78.5 Hyperlipidemia, unspecified (principal); N28.9 Disorder of kidney and ureter, unspecified; L40.9 Psoriasis, unspecified; M25.59 Pain in other specified joint
CPT/HCPCS: 80053; 85027; 86038; 86431

== ENCOUNTER 2020-12-24 01:30 | Outpatient (CLI) | payer MEDICARE, SELFPAY ==
--- NOTE | 2020-12-24 | DI.US_ITS ---
EXAM: US AAA DIAGNOSTIC CLINICAL HISTORY: F/U AAA,I71.4 COMPARISON: US AAA DIAGNOSTIC/FOLLOW UP from 07/11/2017 FINDINGS: There is a fusiform infrarenal abdominal aortic aneurysm which exhibits a maximum diameter of 4 cm. The mid abdominal aortic level exhibits maximum diameter 2.3 cm Proximal aorta diameters 3.2 cm which is minimally prominent. Visualized left common iliac artery exhibits diameter of 1.2 cm which is minimally prominent. Visualized right common iliac artery exhibits diameter is 0.9 cm which is within normal limits IMPRESSION: The main finding here is a fusiform infrarenal abdominal aortic aneurysm which exhibits maximum diame ter 4 cm. DATA REPOSITORY:
== END 2020-12-24 01:50 ==
PROVIDERS: PCP Family Medicine; Visit Provider Family Medicine
DX: I71.4 Abdominal aortic aneurysm, without rupture (principal)
CPT/HCPCS: 76775

== ENCOUNTER → 2020-12-25 10:41 | Outpatient (BNVA) | payer MEDICARE, SELFPAY | PROVIDERS: PCP Family Medicine; Referring Provider Family Medicine; Visit Provider Student in an Organized Health Care Education/Training Program | DX: M17.12 Unilateral primary osteoarthritis, left knee (principal); M17.11 Unilateral primary osteoarthritis, right knee; M70.61 Trochanteric bursitis, right hip; L40.50 Arthropathic psoriasis, unspecified | CPT/HCPCS: 20610; J1040 ==

== ENCOUNTER 2021-03-24 02:37 | Outpatient (CLI) | payer MEDICARE, SELFPAY ==
--- NOTE | 2021-03-24 07:15 | DI.MRI_ITS ---
Exam(s) MR LOWER JOINT LT WO EXAM: MR LOWER JOINT LT WO CLINICAL HISTORY: left knee pain,PRIMARY OA LT NEE, M17.12 TECHNIQUE: Multiplanar multisequence MRI of the knee was performed. COMPARISON: DX XR KNEE 1-2 VIEWS BILAT (GENERIC) from 12/17/2020 DX XR KNEE 1-2 VIEWS BILAT (GENERIC) from 12/17/2020 FINDINGS: EFFUSION: There is a minimal amount of increased joint fluid. There is no Montelongo cyst in the poplitea l fossa MARROW:There is no evidence of fracture, bone contusion, nor osteochondral defects.. There are no si gnificant osseous lesions. PATELLOFEMORAL COMPARTMENT: The quadriceps tendon is intact. The patellar ligament is intact. There is no significant thinning of the retropatellar cartilage. No evidence of fissure nor signific ant chondral defect. No osteochondral defect at this level.There is no intraosseous signal to sugges t recent patellar dislocation. There are no patellar retinacular tears. CRUCIATE LIGAMENTS: The anterior cruciate ligament is intact.The posterior cruciate ligament is intac t. MEDIAL COMPARTMENT/MEDIAL MENISCUS: There is a vertical tear in the undersurface of the posterior hor n of the medial meniscus this is located 1 cm lateral to the root insertion site. There is no bucket handle configuration. There is also some tearing in outer 3rd inferior aspect of the posterior horn a t the meniscal capsular junction but not associated with meniscocapsular separation nor meniscal extr usion. The anterior horn appears intact... There are no chondral defects, osteochondral defects, subarticular marrow edema, nor osteophytes evid ent. MEDIAL COLLATERAL LIGAMENT: Mild sprain signal. No high-grade tear. LATERAL COMPARTMENT/LATERAL MENISCUS: There is no evidence of lateral meniscal tear.There are no oskar dral defects, osteochondral defects, subarticular marrow edema, nor osteophytes evident. ILIOTIBIAL BAND: Intact LATERAL COLLATERAL LIGAMENT COMPLEX: The fibular collateral ligament is intact. The biceps femoris t endon is intact.Popliteus muscle and tendon are intact. IMPRESSION: 1. Main finding here are tears at 2 levels in the posterior horn of the medial meniscus. There is tea ring in the outer third as well as a vertical tear 1 cm proximal to the road insertional site. There is no bucket-handle configuration. No meniscal extrusion, intrusion, or flipped fragment. The anterio r horn of the medial meniscus is intact and there are no tears of the lateral meniscus. 2. Cruciate and collateral ligaments are intact with the exception of mild increased signal in the me dial meniscus but no high-grade tear of this structure. 3. Small joint effusion. No Montelongo cyst. DATA REPOSITORY:
== END 2021-03-24 02:57 ==
PROVIDERS: PCP Family Medicine; Visit Provider Student in an Organized Health Care Education/Training Program
DX: S83.242A Other tear of medial meniscus, current injury, left knee, initial encounter (principal); M17.12 Unilateral primary osteoarthritis, left knee; M25.462 Effusion, left knee; X58.XXXA Exposure to other specified factors, initial encounter
CPT/HCPCS: 73721

== ENCOUNTER → 2021-04-01 08:25 | Outpatient (BNVA) | payer MEDICARE, SELFPAY | PROVIDERS: PCP Family Medicine; Referring Provider Family Medicine; Visit Provider Student in an Organized Health Care Education/Training Program | DX: M23.92 Unspecified internal derangement of left knee (principal); J44.9 Chronic obstructive pulmonary disease, unspecified; Z98.890 Other specified postprocedural states | CPT/HCPCS: 99214 ==

== ENCOUNTER → 2021-04-13 10:37 | Outpatient (BNVA) | payer MEDICARE, SELFPAY | PROVIDERS: PCP Family Medicine; Referring Provider Family Medicine; Visit Provider Physician Assistant Surgical | DX: Z01.818 Encounter for other preprocedural examination (principal); S83.242A Other tear of medial meniscus, current injury, left knee, initial encounter; X58.XXXA Exposure to other specified factors, initial encounter; J44.9 Chronic obstructive pulmonary disease, unspecified; E11.22 Type 2 diabetes mellitus with diabetic chronic kidney disease; N18.9 Chronic kidney disease, unspecified ==

== ENCOUNTER 2021-04-19 02:12 | Outpatient (CLI) | payer MEDICARE, SELFPAY ==
[2021-04-19 15:58] LABS: Source Nasal/Nares
[2021-04-19 19:26] LABS: COVID-19 PCR Negative (Negative)
== END 2021-04-19 02:13 | disposition home or self-care (01) ==
LOC: LBO 02:12
PROVIDERS: PCP Family Medicine; Visit Provider Student in an Organized Health Care Education/Training Program
DX: Z20.822 Contact with and (suspected) exposure to COVID-19 (principal); Z01.818 Encounter for other preprocedural examination
CPT/HCPCS: 87635

== ENCOUNTER 2021-04-21 09:17 | Day surgery (SDC) | payer MEDICARE, SELFPAY ==
[2021-04-21] VITALS (7 sets, daily range): BP systolic 117–134; BP diastolic 49–73; PULSE 51–65; RESP 13–19; TEMP 36.2–36.4; O2SAT 94–96; BMI 35.8
--- NOTE | 2021-04-21 07:44 | W.PM.DSUDISC ---
Discharge Plan Disposition Patient Disposition: HOME Condition: Stable Discharge Details Reason For Visit: Left Knee Arthroscopy Attending Provider: Skip Diane Primary Care Provider: Tierney Jordan V Home Meds and New Rx's Prescriptions: Continued clonazepam 1 mg Tablet 1 mg PO BID RF: 0 montelukast 10 mg Tablet 10 mg PO DAILY RF: 0 cholecalciferol (vitamin D3) [Vitamin D3] 2,000 unit Tablet 2,000 unit PO DAILY RF: 0 Incruse Ellipta 62.5 mcg/actuation Blister With Device 1 inh INHALATION DAILY RF: 0 atorvastatin 20 mg tablet 20 mg PO DAILY RF: 0 ziprasidone HCl 20 mg capsule 20 mg PO BID RF: 0 diphenhydramine HCl [Banophen] 25 mg capsule 25 mg PO TID PRNRF: 0 metoprolol tartrate 25 mg tablet 12.5 mg PO BID RF: 0 celecoxib 200 mg capsule 200 mg PO BID PRN (Reason: pain) Qty: 60 RF: 0 albuterol sulfate 8.5 GM HFA aerosol inhaler 2 puff Inhalation Q6H PRN RF: 0 fluticasone propionate [Flonase] 16 GM spray,suspension 50 mcg NS BID PRNRF: 0 betamethasone valerate 15 GM ointment 15 gm Topical Q12H PRN RF: 0 pantoprazole [Protonix] 40 MG tablet,delayed release (DR/EC) 40 mg PO DAILY RF: 0 clobetasol 50 ML solution 50 ml Topical Q12H PRN RF: 0 triamcinolone acetonide 80 GM cream 0 gm Topical PRN PRNRF: 0 citalopram 20 MG tablet 30 mg PO DAILY RF: 0 hydrochlorothiazide 12.5 MG capsule 12.5 mg PO DAILY RF: 0 nitroglycerin 0.4 mg Tablet, Sublingual 0.4 mg Sublingual PRN PRNRF: 0 Discharge Instructions Stand Alone Forms: [facility] Knee Arthroscopy Referrals: Skip Diane MD [ [facility] STAFF PHYSICIAN] - Equipment/Supplies: Partial Weight Bearing Crutches Activity:: Activity as Tolerated Remove Dressings/Wound Care:: 72 hours Shower/Bathe:: 72 hours Diet:: As Tolerated Discharge Orders Discharge Orders: Discharge Order (Routine); Ordered 04/21/21 Ordered By: Tierney Burgess DS: Diagnosis Discharge Diagnosis (1) Internal derangement of left knee: Status: Acute (2) Tear of medial meniscus of left knee: Status: Acute
[2021-04-21] MEDS: Lactated Ringers 1,000 ML 80 ML IV ×2 (10:15→12:43)
--- NOTE | 2021-04-21 11:07 | W.ANESPRE ---
General Info Date of Service Date Performed: 04/21/21 Height: 5 ft 5 in Weight: 97.6 kg Body Mass Index (BMI): 35.8 Surgical Procedure: Operation Date: 04/21/21 12:55 Proposed Procedures Side Surgeon p (L) KNEE ARTHROSCOPY Left Skip Diane MD Meds Allergies and Home Medications Allergies Allergy/AdvReac Type Severity Reaction Status Date / Time lisinopril Allergy Severe Verified 04/21/21 09:31 NSAIDS (Non-Steroidal Allergy Severe tongue Verified 04/21/21 09:31 Anti-Inflamma swells acetaminophen AdvReac Intermediate MONITORING Verified 04/21/21 09:31 LIVER PANELS Home Medication Medication Instructions Recorded citalopram 30 mg PO DAILY 11/30/12 triamcinolone acetonide 0 gm TOPICAL PRN PRN 11/30/12 albuterol sulfate 2 puff INHALATION Q6H PRN inhaler 10/02/13 NS fluticasone propionate [Flonase] 50 mcg NS BID PRN spray NS 10/02/13 betamethasone valerate 15 gm TOPICAL Q12H PRN script 06/06/14 clobetasol 50 ml TOPICAL Q12H PRN script 06/06/14 pantoprazole [Protonix] 40 mg PO DAILY tab-cap 06/06/14 hydrochlorothiazide 12.5 mg PO DAILY 02/09/17 nitroglycerin 0.4 mg SUBLINGUAL PRN PRN 12/29/18 Incruse Ellipta 1 inh INHALATION DAILY 09/27/19 cholecalciferol (vitamin D3) 2,000 unit PO DAILY 09/27/19 [Vitamin D3] clonazepam 1 mg PO BID 09/27/19 montelukast 10 mg PO DAILY 09/27/19 atorvastatin 20 mg tablet 20 mg PO DAILY 06/10/20 diphenhydramine HCl 25 mg capsule 25 mg PO TID PRN 06/10/20 ziprasidone HCl 20 mg capsule 20 mg PO BID 06/10/20 metoprolol tartrate 25 mg tablet 12.5 mg PO BID tab 12/29/20 celecoxib 200 mg capsule 200 mg PO BID PRN #60 cap 04/01/21 Current Visit Medications: Current Medications Generic Name Dose Route Start Last Admin Trade Name Freq PRN Reason Stop Dose Admin Acetaminophen 650 mg 04/21/21 07:40 Acetaminophen 325 Mg Tab PO Q4H PRN PRN Hydrocodone Bitart/Acetaminophen 0 tab 04/21/21 07:40 Hydrocodone 5/Acetaminophen 325 Tab PO Q3H PRN PRN Pain Ringer's Solution 1,000 mls @ 80 mls/hr 04/21/21 06:00 04/21/21 10:15 IV 05/20/21 23:59 80 mls/hr INFUSION TAMARA Administration Cefazolin Sodium 2,000 mg/ 100 mls @ 200 mls/hr 04/21/21 06:00 Sodium Chloride IVPB 04/21/21 23:59 PREOP TAMARA Ondansetron HCl 4 mg/ Sodium 52 mls @ 200 mls/hr 04/21/21 07:40 Chloride IVPB Q6H PRN PRN IV Miscellaneous Supplies 1 each 04/21/21 06:00 Iv Access IV 05/20/21 23:59 DIRECTED TAMARA Sodium Chloride 0 ml 04/21/21 06:00 Normal Saline Flush 10 Ml Syr IV 05/20/21 23:59 PRN PRN Sodium Chloride 0 ml 04/21/21 06:00 Normal Saline 10 Ml Vial IJ 05/20/21 23:59 DIRECTED PRN Sterile Water 0 ml 04/21/21 06:00 Water,Injection,Sterile 10 Ml Vial IJ 05/20/21 23:59 DIRECTED PRN PFSH Active Problems Active Problems: Problem Status Onset Code Tear of left rotator cuff 10/28/13 M75.102 DJD AC joint, left 10/28/13 Tubulovillous adenoma of colon 06/19/17 D12.6 Erectile dysfunction N52.9 Urinary frequency R35.0 Knee pain, right M25.561 Hip pain, right M25.551 Primary osteoarthritis of right knee M17.11 Primary osteoarthritis of left knee M17.12 Trochanteric bursitis, right hip M70.61 Internal derangement of left knee M23.92 Tear of medial meniscus of left knee S83.242A Medical History Medical History AAA (abdominal aortic aneurysm) Anxiety Bipolar disorder Cervical radiculopathy Cervicalgia Chest pain NST and tx with cholesterol meds has resolved Chronic headaches Colon polyps COPD (chronic obstructive pulmonary disease) Depression with anxiety Dermatitis, seborrheic Diabetes mellitus Diverticulitis Dyspepsia Dyspnea on exertion Ecchymoses, spontaneous Elevated LFTs Fatty liver GERD (gastroesophageal reflux disease) Hearing loss HTN (hypertension) Hypercholesterolemia Hyperlipidemia Left shoulder pain Nephrolithiasis Papule Psoriasis Rash Rectal bleeding Renal insufficiency Right knee pain Right shoulder pain Sciatica Shortness of breath Urinary frequency Surgical History Surgical History Colonoscopy - MAC (06/19/17) H/O cataract extraction S/P hernia repair Status post excisioni distal clavicle, left (10/28/13) Status post rotator cuff repair (10/28/13) Tobacco Smoking/Tobacco Use Status: Former Tobacco Use Alcohol Alcohol Intake: never Substance Use Substance use: Never Substance use type: does not use Vital Signs and Lab Results Vital Signs Most Recent Vital Signs in EMR: Most Recent Vital Signs Temp Pulse Resp BP Pulse Ox 36.4 C L 65 16 134/70 95 04/21/21 09:27 04/21/21 09:27 04/21/21 09:27 04/21/21 09:27 04/21/21 09:27 Lab Results Blood Type / Crossmatch: No Data to Display Complete Blood Count: No Data to Display Complete Metabolic Panel: No Data to Display Liver Function Panel: No Data to Display Coagulation Panel: No Data to Display Cardiac Panel: No Data to Display Arterial Blood Gas: No Data to Display Venous Blood Gas: No Data to Display Pancreas Panel: No Data to Display Thyroid Panel: No Data to Display Infectious Disease: Coronavirus (COVID-19)(PCR) Negative (Negative) 04/19/21 10:29 04/19/21 Coronavirus 2019 Source Nasal/Nares 04/19/21 10:29 04/19/21 Blood Cultures: No Data to Display Toxicology Panel: No Data to Display Imaging and Studies Imaging and Studies Stress Test Summary: Impressions: - Abnormal study after pharmacologic stress. - Rec cardiac catheterization on basis of perfusion imaging. Summary: 1. Myocardial perfusion imaging: There is a moderate sized, moderately intense, predominantly reversible defect involving the inferior wall(s). This suggests moderate ischemia in the distribution of the right coronary artery. Overall ischemia: moderate. 2. No left ventricular regional motion abnormality. 04/16/18 Followed by normal cardiac cath 04/2018, resolution of chest pain following starting statin Echocardiogram Summary: Summary: 1. Left ventricle: The cavity size was normal. There was mild focal basal hypertrophy of the septum. Systolic function was normal. The estimated ejection fraction was 60-65%. Wall motion was normal; there were no regional wall motion abnormalities. 2. Right ventricle: The cavity size was normal. Wall thickness was normal. Systolic function was normal. 05/16/16 Anesthesia Assessment and Plan Anesthesia History Personal History: No History of Anesthesia Complications Family History: No Family History of Anesthesia Complications Exercise Tolerance Exercise Tolerance: Metabolic Equivalents>4 Cardiac & Pulmonary Exam Cardiac Exam: Normal S1/S2 Heart Sounds Pulmonary Exam: Clear Bilateral Breath Sounds Airway Exam Known Difficult Airway: No Mallampati Class: 2 Mouth Opening: Normal (> 3cm) Thyromental Distance: Greater than 3 cm Neck Range of Motion: Full ROM Neck Circumference: Normal Teeth Condition: Removable Dentures/Plates Upper, Removable Dentures/Plates Lower (Dentures left at home) and Edentulous ASA Classification ASA Score: ASA 3 Emergency Case?: No NPO Status NPO Status: NPO Clears >2 hours, Solids >8 hours Anesthesia Plan Resuscitation Status: Full Code Anesthesia Technique: General Anesthesia Airway Planned: LMA Monitors Used: Standard Monitors
[2021-04-21] MEDS: ceFAZolin 2,000 MG in Normal Saline 100 ML 200 MG IVPB (13:37)
[2021-04-21] MEDS: Bupivacaine 0.5% Pres-Free 30 ML VIAL (13:58)
--- NOTE | 2021-04-21 14:31 | W.PM.OP ---
Date of service: 04/21/21 Time of Service: 14:31 Operative Note Operative Note DATE OF PROCEDURE: 04/21/21 PRE-OP DIAGNOSIS: Left Knee Medial Meniscus Tear POST-OP DIAGNOSIS: same PROCEDURE: Left Knee Arthroscopic Partial Medial Menisectomy SURGEON: Skip Diane ANESTHESIA TYPE: General LMA/ETT Refer to Anesthesia Record ESTIMATED BLOOD LOSS: 0 PATHOLOGY: none sent TOURNIQUET TIME: 0 COMPLICATIONS: None Patient was transported to: PACU Patient's condition: stable Indications: I have seen Adonis in clinic for symptoms of a meniscus tear. This was confirmed based on MRI and exam findings. Nonoperative measures were exhausted but disability and pain persisted. I discussed knee arthroscopy with meniscal intervention with the patient. I reviewed the risks of the procedure to include, but not limited to, bleeding, infection, pain, stiffness, damage to nerves or vessels, recurrence, blood clot. Despite these risks, the patient elected to proceed. Findings: A diagnostic arthroscopy was performed with the following findings: Suprapatellar Pouch: Mild inflammatory changes, No loose bodies Medial Compartment: Complex medial meniscal tear, Partial tear extending into root but still intact, Mild chondromalacia of the distal, medial femur, No loose bodies Notch: ACL and PCL were intact although the ACL appeared to have some partial tearing Lateral Compartment: No meniscal tear, Intact meniscal root, No significant chondromalacia or signs of arthritis, No loose bodies Patellofemoral Compartment: No significant chondromalacia, No apparent patellar maltracking Procedure Description: Adonis was greeted in the preoperative holding area where the correct side was identified and marked. The consent was reviewed with the patient and signed. The history and physical was updated. All questions were answered. Adonis was taken back to the operating room. The patient was placed into the supine position on the operating room table. All bony prominences were well padded. Prophylactic antibiotics in the form of Cefazolin were administered. The left leg was then prepped with Chloraprep and draped in a standard fashion with stockinette and extremity drape. A timeout to confirm correct identity, side and site, procedure, allergies, anesthesia, and medical concerns was performed. The leg was placed into a pneumatic leg holt, [id number]. A standard lateral portal was made at the lateral border of the patella tendon in line with the inferior pole of the patella, soft spot. The skin and deep tissue was incised sharply and the blunt trochar was inserted atraumatically. A diagnostic arthroscopy was performed and the findings are listed above. The suprapatellar pouch had mild inflammatory change. The patellofemoral articulation showed no articular damage as well as good tracking. The lateral gutter had no loose bodies and the medial gutter had no loose bodies. The knee was brought into some valgus stress in extension to open the medial compartment. A medial portal was made, localized by a spinal needle. The portal was created with an #11 blade through skin and capsule under direct visualization avoiding any meniscal injury. A probe was then inserted into the medial compartment. The medial compartment was fully inspected. The chondral surface of the tibia showed no significant chondromalacia and the surface of the femur showed mild Grade I/II chondromlacia of a portion of the distal aspect of the medial femur. The medial meniscus had a complex meniscal tear with a large, loose flap. This was at the posterior horn with extension into the posterior root. The periphery of the meniscus and the meniscal root was intact. After evaluation, the meniscus was debrided down to a stable base using a series of biters and arthroscopic keli. It was probed afterwards to confirm that the tear had been removed and the meniscus was stable. The notch was then inspected which showed an intact ACL, although there appeared to be some partial tearing, and an intact PCL. The leg was then brought into a figure of 4 position. The lateral compartment was fully inspected with the arthroscope and a probe. The chondral surface of the lateral femur showed no significant chondromalacia. The chondral surface of the lateral tibia showed no significant chondromalacia. The lateral meniscus had no meniscal tear. The arthroscope was brought back into the suprapatellar pouch and the leg was in full extension. The knee was thoroughly irrigated with the arthroscopic fluid on high flow and pressure. Inflow was stopped and excess fluid was removed. The wounds were closed with 4-0 Nylon. They were dressed with Xeroform, 4x4 gauze, ABD pad, Kerlix and an APOLLO wrap. A cryo-cuff was applied. The patient tolerated the procedure well and was returned to the Same Day Surgery area in a stable condition suffering no known complication.
--- NOTE | 2021-04-21 14:43 | W.ANESPOSTOP ---
Postoperative Evaluation Date, Time and Location Date Performed: 04/21/21 Time Performed: 14:43 Patient Location: PACU Vital Signs Most Recent Imported Vital Signs: Most Recent Vital Signs Temp Pulse Resp BP Pulse Ox 36.4 C L 51 L 18 126/65 94 04/21/21 14:33 04/21/21 14:33 04/21/21 14:33 04/21/21 14:33 04/21/21 14:33 Pain Score Most Recent Pain Score: Most Recent Pain Score Pain Level 0 04/21/21 14:33 Assessment Mental Status: Awake (Alert & Oriented to Patient Baseline) Airway and Respiratory Function: Patent airway with normal (patient baseline) respiratory exam Cardiovascular Function: Hemodynamically Stable Hydration Status: Adequately Hydrated Nausea & Vomiting: No Nausea or Vomiting Pain: Pt. Denies Any Pain Peripheral Nerve Block: Patient did not receive a nerve block
[2021-04-21] MEDS: HYDROcodone 5/Acetaminophen 325 TAB PO (15:09)
== END 2021-04-21 16:10 | disposition home or self-care (01) ==
PROVIDERS: PCP Family Medicine; Visit Provider Student in an Organized Health Care Education/Training Program
PROC: (CPT 29870; principal; 2021-04-21 12:45)
DX: M23.232 Derangement of other medial meniscus due to old tear or injury, left knee (principal); M94.262 Chondromalacia, left knee; E11.9 Type 2 diabetes mellitus without complications; J44.9 Chronic obstructive pulmonary disease, unspecified; I10 Essential (primary) hypertension
CPT/HCPCS: 29881; J0690; J1100; J2405; J2704

== ENCOUNTER → 2021-05-06 09:47 | Outpatient (BNVA) | payer MEDICARE, SELFPAY | PROVIDERS: PCP Family Medicine; Referring Provider Family Medicine | DX: Z47.89 Encounter for other orthopedic aftercare (principal); M25.562 Pain in left knee ==

== ENCOUNTER → 2021-06-03 08:22 | Outpatient (BNVA) | payer MEDICARE, SELFPAY | PROVIDERS: PCP Family Medicine; Referring Provider Family Medicine; Visit Provider Student in an Organized Health Care Education/Training Program | DX: Z47.89 Encounter for other orthopedic aftercare (principal); M17.12 Unilateral primary osteoarthritis, left knee | CPT/HCPCS: 20610; J1040 ==

== ENCOUNTER 2021-07-15 09:13 | Outpatient (CLI) | payer MEDICARE, SELFPAY ==
--- NOTE | 2021-07-15 08:00 | DI.RAD_ITS ---
Exam(s) XR SHOULDER RT COMPLETE 2+V EXAM: XR SHOULDER RT COMPLETE 2+V CLINICAL HISTORY: R shoulder pain. TECHNIQUE: 2D digital imaging was performed. COMPARISON: CR RIGHT SHOULDER COMPLETE from 01/12/2017 FINDINGS: There has been interval surgery. Single radiopaque fastener device is seen in mid humeral head and t here has been widening-decompression of the ipsilateral AC joint. There is significant diminution of the subacromial space again noted. Cannot exclude rotator cuff tear. If clinically indicated follo w-up MRI can be performed. IMPRESSION: DATA REPOSITORY: RADIATION DOSE DELIVERED:
== END 2021-07-15 09:14 | disposition home or self-care (01) ==
LOC: DIORS 09:13
PROVIDERS: PCP Family Medicine; Referring Provider Family Medicine; Visit Provider Student in an Organized Health Care Education/Training Program
DX: Z47.89 Encounter for other orthopedic aftercare; M25.511 Pain in right shoulder; M70.61 Trochanteric bursitis, right hip; M19.211 Secondary osteoarthritis, right shoulder
CPT/HCPCS: 20610; 99213; 73030; J1040

== ENCOUNTER 2021-08-24 05:26 | Emergency (ER) | payer MEDICARE, SELFPAY ==
[2021-08-24 05:31] VITALS: BP 140/77; PULSE 83; RESP 18; TEMP 36.4; O2SAT 98
--- NOTE | 2021-08-24 05:42 | ED.GENADUL_ITS ---
Discharge Plan Disposition Patient Disposition: HOME Condition: Stable Discharge Details Clinical Impression: Pain of right calf Primary Care Provider: Tierney Jordan V ED Provider: Cyril Boswell Home Meds and New Rx's Prescriptions: Continued clonazepam 1 mg Tablet 1 mg PO BID RF: 0 montelukast 10 mg Tablet 10 mg PO DAILY RF: 0 cholecalciferol (vitamin D3) [Vitamin D3] 2,000 unit Tablet 2,000 unit PO DAILY RF: 0 Incruse Ellipta 62.5 mcg/actuation Blister With Device 1 inh INHALATION DAILY RF: 0 atorvastatin 20 mg tablet 20 mg PO DAILY RF: 0 ziprasidone HCl 20 mg capsule 20 mg PO BID RF: 0 diphenhydramine HCl [Banophen] 25 mg capsule 25 mg PO TID PRNRF: 0 metoprolol tartrate 25 mg tablet 12.5 mg PO BID RF: 0 celecoxib 200 mg capsule 200 mg PO BID PRN (Reason: pain) Qty: 60 RF: 0 albuterol sulfate 8.5 GM HFA aerosol inhaler 2 puff Inhalation Q6H PRN RF: 0 fluticasone propionate [Flonase] 16 GM spray,suspension 50 mcg NS BID PRNRF: 0 betamethasone valerate 15 GM ointment 15 gm Topical Q12H PRN RF: 0 pantoprazole [Protonix] 40 MG tablet,delayed release (DR/EC) 40 mg PO DAILY RF: 0 clobetasol 50 ML solution 50 ml Topical Q12H PRN RF: 0 triamcinolone acetonide 80 GM cream 0 gm Topical PRN PRNRF: 0 citalopram 20 MG tablet 30 mg PO DAILY RF: 0 hydrochlorothiazide 12.5 MG capsule 12.5 mg PO DAILY RF: 0 nitroglycerin 0.4 mg Tablet, Sublingual 0.4 mg Sublingual PRN PRNRF: 0 hydrocodone-acetaminophen 5-325 mg tablet 1 tab PO Q6H PRNQty: 5 RF: 0 Discharge Instructions Additional Instructions: your pain is likely from a muscle strain but you should call radiology to have an ultrasound done to evaluate for a blood clot if you feel more ill, have difficulty breathing or fevers return to the emergency department Medical Decision Making 71 yo male comes in with right calf pain since 08/21 and denies any known falls or trauma. He localizes the pain to the posterior medial calf. He has no pain in the knee, ankle or foot. He has tenderness to the mid calf, no erythema or warmth. Noral distal sensation and cap refill. Suspect this could just be a strain but feel he should have u/s to evaluate for dvt. No findings to suggest acute arterial occlusion or infectious etiology. I offered to have him wait until u/s could do it today but he prefers to call and have a time arranged and come back later today which I feel is reasonable. HE understands importance of the u/s and will call today to have the ultrasound done Differential Diagnosis Differential Diagnosis: strain, dvt, superficial thrombophlebitis HPI General Mode of arrival: ambulatory . Date/Time Provider Initiated Documentation: 08/24/21 05:27 . Limitations to Documentation: no limitations . Information obtained by: patient . History of Present Illness 71 year old M presents to the emergency department with the chief complaint of right calf pain, described as moderate, Quality is described as aching, and it has been constant. No relieving factors improve symptom(s), No exacerbating factors reported . Patient notes no other symptoms.. Patient did receive the following treatments prior to arrival, none Related Data Home Medications Medication Instructions Recorded Confirmed citalopram 30 mg PO DAILY 11/30/12 07/15/21 triamcinolone acetonide 0 gm TOPICAL PRN PRN 11/30/12 07/15/21 albuterol sulfate 2 puff INHALATION Q6H PRN inhaler 10/02/13 07/15/21 NS fluticasone propionate [Flonase] 50 mcg NS BID PRN spray NS 10/02/13 07/15/21 betamethasone valerate 15 gm TOPICAL Q12H PRN script 06/06/14 07/15/21 clobetasol 50 ml TOPICAL Q12H PRN script 06/06/14 07/15/21 pantoprazole [Protonix] 40 mg PO DAILY tab-cap 06/06/14 07/15/21 hydrochlorothiazide 12.5 mg PO DAILY 02/09/17 07/15/21 nitroglycerin 0.4 mg SUBLINGUAL PRN PRN 12/29/18 07/15/21 Incruse Ellipta 1 inh INHALATION DAILY 09/27/19 07/15/21 cholecalciferol (vitamin D3) 2,000 unit PO DAILY 09/27/19 07/15/21 [Vitamin D3] clonazepam 1 mg PO BID 09/27/19 07/15/21 montelukast 10 mg PO DAILY 09/27/19 07/15/21 atorvastatin 20 mg tablet 20 mg PO DAILY 06/10/20 07/15/21 diphenhydramine HCl 25 mg capsule 25 mg PO TID PRN 06/10/20 07/15/21 ziprasidone HCl 20 mg capsule 20 mg PO BID 06/10/20 07/15/21 metoprolol tartrate 25 mg tablet 12.5 mg PO BID tab 12/29/20 07/15/21 celecoxib 200 mg capsule 200 mg PO BID PRN #60 cap 04/01/21 07/15/21 hydrocodone-acetaminophen 1 tab PO Q6H PRN #5 tab 04/21/21 07/15/21 Previous Rx's Medication Instructions Recorded celecoxib 200 mg capsule 200 mg PO BID PRN #60 cap 04/01/21 hydrocodone-acetaminophen 1 tab PO Q6H PRN #5 tab 04/21/21 Allergies Allergy/AdvReac Type Severity Reaction Status Date / Time lisinopril Allergy Severe Verified 06/03/21 08:32 NSAIDS (Non-Steroidal Allergy Severe tongue Verified 06/03/21 08:32 Anti-Inflamma swells acetaminophen AdvReac Intermediate MONITORING Verified 06/03/21 08:32 LIVER PANELS General Stated Complaint: Orthopedic AMANDA: 4 Review of Systems All systems reviewed & are unremarkable except as noted in HPI and below Constitutional Constitutional: Denies chills, Denies fever(s) and Denies weakness Cardiovascular Cardiovascular: Denies chest pain and Denies dyspnea Respiratory Respiratory: Denies cough and Denies dyspnea Gastrointestinal Gastrointestinal: Denies abdominal pain, Denies nausea and Denies vomiting Neurologic Neurologic: Denies weakness PFSH All Active Problems (Updated 08/24/21 @ 05:43 by Cyril Boswell MD) Pain of right calf (Acute) 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 (Acute) S/P left knee arthroscopy (Acute 04/21/21) Tear of left rotator cuff (Acute 10/28/13) DJD AC joint, left (Acute 10/28/13) Tubulovillous adenoma of colon (Acute 06/19/17) Erectile dysfunction (Acute) Urinary frequency (Acute) Knee pain, right (Acute) Hip pain, right (Acute) Primary osteoarthritis of right knee (Acute) Steroid injection: 07/14/2020 Primary osteoarthritis of left knee (Acute) Trochanteric bursitis, right hip (Acute) Injection: 07/16/2021 Internal derangement of left knee (Acute) Tear of medial meniscus of left knee (Acute) Medical History (Updated 08/24/21 @ 05:43 by Cyril Boswell MD) AAA (abdominal aortic aneurysm) 12/24/20: Max Diameter 4cm Anxiety Bipolar disorder Cervical radiculopathy Cervicalgia Chest pain NST and tx with cholesterol meds has resolved Chronic headaches Colon polyps COPD (chronic obstructive pulmonary disease) Depression with anxiety Dermatitis, seborrheic Diabetes mellitus Diverticulitis Dyspepsia Dyspnea on exertion Ecchymoses, spontaneous Elevated LFTs Fatty liver GERD (gastroesophageal reflux disease) Hearing loss HTN (hypertension) Hypercholesterolemia Hyperlipidemia Left shoulder pain Nephrolithiasis Papule Psoriasis Rash Rectal bleeding Renal insufficiency Right knee pain Right shoulder pain Sciatica Shortness of breath Urinary frequency Surgical History (Updated 05/06/21 @ 10:38 by GURPREET Cruz) Colonoscopy - MAC (06/19/17) H/O cataract extraction S/P hernia repair Social History Smoking/Tobacco Use Status: Former Tobacco Use Quit Date: 08/28/00 Smoking risk assessment performed?: Yes Alcohol Intake: never Drug use: Never Substance use type: does not use Household members: spouse Housing: house Number of Children: 3 Communication Needs: Hard of Hearing current occupation: Retired Current gender identity: male What is your relationship status?: Panel score (0-1 are the most socially isolated patients): 1 What type of physical activity do you participate in: walking and additional Do you feel safe at home: Yes Do you feel safe in your relationship?: Yes Exam Const General: no acute distress Orientation: alert HENMT Head: normal to inspection Ears: external ears normal General nose exam: external nose normal Mouth: moist mucous membranes Eyes General: appearance normal, both eyes and all related structures Neck Neck: normal visual inspection Resp Effort & Inspection: normal respiratory effort and able to speak in complete sentences Cardio Rate: regular rate Skin General skin exam: no rashes or lesions noted Neuro General: patient alert and patient oriented x3 Extrem General: full ROM and capillary refill normal Psych Mental Status: mental status grossly normal Course Vital Signs Vital signs: Vital Signs Temperature 36.4 C L 08/24/21 05:31 Pulse 83 08/24/21 05:31 Respiratory Rate 18 08/24/21 05:31 Blood Pressure 140/77 08/24/21 05:31 Pulse Oximetry 98 08/24/21 05:31 Temperature 36.4 C L 08/24/21 05:31 Temperature Source Temporal Artery Scan 08/24/21 05:31 Pulse 83 08/24/21 05:31 Respiratory Rate 18 08/24/21 05:31 Respiratory Effort 08/24/21 05:35 Blood Pressure 140/77 08/24/21 05:31 Blood Pressure Position Supine 08/24/21 05:31 Pulse Oximetry 98 08/24/21 05:31 Oxygen Delivery Method Room Air 08/24/21 05:31 Oxygen Flow Rate 0 08/24/21 05:31 Pain Level 4 08/24/21 05:31
--- NOTE | 2021-08-24 05:48 | NUR.NOTE ---
Out patient ultrasound requisition faxed to Radiology for R leg DVT ultrasound. Patient told to call radiology later this morning to make appt for later today.Nursing Note:
== END 2021-08-24 05:48 | disposition home or self-care (01) ==
PROVIDERS: Emergency Provider Emergency Medicine; PCP Family Medicine
DX: M79.661 Pain in right lower leg (principal)
CPT/HCPCS: 99281; 99282

== ENCOUNTER 2021-08-24 09:37 | Outpatient (CLI) | payer MEDICARE, SELFPAY ==
--- NOTE | 2021-08-24 | DI.US_ITS ---
Exam(s) US LOWER EXTREMITY VENOUS RT EXAM: US LOWER EXTREMITY VENOUS RT CLINICAL HISTORY: RT CALF PAIN, ? DVT, M79.604 TECHNIQUE: Ultrasound performed using standard protocol. COMPARISON: US US AAA DIAGNOSTIC from 12/24/2020 FINDINGS: Duplex evaluation of the deep venous system of the right lower extremity was performed according to t usual protocol. 2D evaluation shows thrombus in greater saphenous vein extending over about 17 cm in length. The superior limit of visualized thrombus is greater than 5 cm from junction with the fe moral vein. There is no evidence of deep venous thrombosis in the region surveyed. IMPRESSION: No evidence of DVT. Superficial venous thrombus was identified corresponding to palpable areas of ab normality in the right calf. DATA REPOSITORY:
== END 2021-08-24 09:57 ==
PROVIDERS: PCP Family Medicine; Visit Provider Emergency Medicine
DX: M79.604 Pain in right leg (principal); I82.811 Embolism and thrombosis of superficial veins of right lower extremity
CPT/HCPCS: 99281; 93971; 99282

== ENCOUNTER 2021-08-24 10:28 | Emergency (ER) | payer MEDICARE, SELFPAY ==
--- NOTE | 2021-08-24 10:31 | W.ED.GENAD ---
Discharge Plan Disposition Patient Disposition: HOME Condition: Improving Discharge Details Clinical Impression: Superficial thrombophlebitis of right leg Primary Care Provider: Tierney Jordan V ED Provider: River Chu Home Meds and New Rx's Prescriptions: Continued clonazepam 1 mg Tablet 1 mg PO BID RF: 0 montelukast 10 mg Tablet 10 mg PO DAILY RF: 0 cholecalciferol (vitamin D3) [Vitamin D3] 2,000 unit Tablet 2,000 unit PO DAILY RF: 0 Incruse Ellipta 62.5 mcg/actuation Blister With Device 1 inh INHALATION DAILY RF: 0 atorvastatin 20 mg tablet 20 mg PO DAILY RF: 0 ziprasidone HCl 20 mg capsule 20 mg PO BID RF: 0 diphenhydramine HCl [Banophen] 25 mg capsule 25 mg PO TID PRNRF: 0 metoprolol tartrate 25 mg tablet 12.5 mg PO BID RF: 0 albuterol sulfate 8.5 GM HFA aerosol inhaler 2 puff Inhalation Q6H PRN RF: 0 fluticasone propionate [Flonase] 16 GM spray,suspension 50 mcg NS BID PRNRF: 0 betamethasone valerate 15 GM ointment 15 gm Topical Q12H PRN RF: 0 pantoprazole [Protonix] 40 MG tablet,delayed release (DR/EC) 40 mg PO DAILY RF: 0 clobetasol 50 ML solution 50 ml Topical Q12H PRN RF: 0 triamcinolone acetonide 80 GM cream 0 gm Topical PRN PRNRF: 0 citalopram 20 MG tablet 30 mg PO DAILY RF: 0 nitroglycerin 0.4 mg Tablet, Sublingual 0.4 mg Sublingual PRN PRNRF: 0 No Action celecoxib 200 mg capsule 200 mg PO BID PRN (Reason: pain) Qty: 60 RF: 0 hydrochlorothiazide 12.5 MG capsule 12.5 mg PO DAILY RF: 0 hydrocodone-acetaminophen 5-325 mg tablet 1 tab PO Q6H PRNQty: 5 RF: 0 Discharge Instructions Instructions: Superficial Thrombophlebitis (ED) Additional Instructions: I recommend you begin once daily baby aspirin for approximately 2 weeks time. Apply warm and moist heat to area to improve resolution. As we discussed, we will ask care management to arrange a follow-up for you in clinic for recheck. Return to the ER if you develop any difficulty breathing, chest pain, or any other acute concerns. Medical Decision Making 71-year-old male presents for follow-up after environmental remediation consultant visit with Dr. Boswell for 3 days of calf pain and for which he was referred for follow-up lower extremity ultrasound this morning. This reveals a superficial thrombophlebitis but no DVT. Discussed findings with patient. He is allergic to NSAIDs and avoids acetaminophen. I do feel he will benefit from a follow-up ultrasound/recheck and we will ask care management to arrange for primary care follow-up. HPI General Mode of arrival: ambulatory. Date/Time Provider Initiated Documentation: 08/24/21 10:29. Limitations to Documentation: no limitations. Information obtained by: patient. History of Present Illness 71 year old M presents to the emergency department with the chief complaint of Recheck after ultrasound, described as mild, and is localized to the right and lower extremity. Patient reports no radiation. No relieving factors improve symptom(s), No exacerbating factors reported . Patient notes denies chest pain and shortness of breath. Patient did receive the following treatments prior to arrival, none Related Data Home Medications Medication Instructions Recorded Confirmed citalopram 30 mg PO DAILY 11/30/12 08/24/21 triamcinolone acetonide 0 gm TOPICAL PRN PRN 11/30/12 08/24/21 albuterol sulfate 2 puff INHALATION Q6H PRN inhaler 10/02/13 08/24/21 NS fluticasone propionate [Flonase] 50 mcg NS BID PRN spray NS 10/02/13 08/24/21 betamethasone valerate 15 gm TOPICAL Q12H PRN script 06/06/14 08/24/21 clobetasol 50 ml TOPICAL Q12H PRN script 06/06/14 08/24/21 pantoprazole [Protonix] 40 mg PO DAILY tab-cap 06/06/14 08/24/21 hydrochlorothiazide 12.5 mg PO DAILY 02/09/17 08/24/21 nitroglycerin 0.4 mg SUBLINGUAL PRN PRN 12/29/18 08/24/21 Incruse Ellipta 1 inh INHALATION DAILY 09/27/19 08/24/21 cholecalciferol (vitamin D3) 2,000 unit PO DAILY 09/27/19 08/24/21 [Vitamin D3] clonazepam 1 mg PO BID 09/27/19 08/24/21 montelukast 10 mg PO DAILY 09/27/19 08/24/21 atorvastatin 20 mg tablet 20 mg PO DAILY 06/10/20 08/24/21 diphenhydramine HCl 25 mg capsule 25 mg PO TID PRN 06/10/20 08/24/21 ziprasidone HCl 20 mg capsule 20 mg PO BID 06/10/20 08/24/21 metoprolol tartrate 25 mg tablet 12.5 mg PO BID tab 12/29/20 08/24/21 celecoxib 200 mg capsule 200 mg PO BID PRN #60 cap 04/01/21 08/24/21 hydrocodone-acetaminophen 1 tab PO Q6H PRN #5 tab 04/21/21 08/24/21 Previous Rx's Medication Instructions Recorded celecoxib 200 mg capsule 200 mg PO BID PRN #60 cap 04/01/21 hydrocodone-acetaminophen 1 tab PO Q6H PRN #5 tab 04/21/21 Allergies Allergy/AdvReac Type Severity Reaction Status Date / Time lisinopril Allergy Severe Verified 08/24/21 10:35 NSAIDS (Non-Steroidal Allergy Severe tongue Verified 08/24/21 10:35 Anti-Inflamma swells acetaminophen AdvReac Intermediate MONITORING Verified 08/24/21 10:35 LIVER PANELS General AMANDA: 4 Review of Systems Narrative: No recent illness. Otherwise well. 6 systems reviewed and otherwise negative. No chest pain or shortness of breath. 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 (Acute) S/P left knee arthroscopy (Acute 04/21/21) Tear of left rotator cuff (Acute 10/28/13) DJD AC joint, left (Acute 10/28/13) Tubulovillous adenoma of colon (Acute 06/19/17) Erectile dysfunction (Acute) Urinary frequency (Acute) Knee pain, right (Acute) Hip pain, right (Acute) Primary osteoarthritis of right knee (Acute) Steroid injection: 07/14/2020 Primary osteoarthritis of left knee (Acute) Trochanteric bursitis, right hip (Acute) Injection: 07/16/2021 Internal derangement of left knee (Acute) Tear of medial meniscus of left knee (Acute) Medical History AAA (abdominal aortic aneurysm) 12/24/20: Max Diameter 4cm Anxiety Bipolar disorder Cervical radiculopathy Cervicalgia Chest pain NST and tx with cholesterol meds has resolved Chronic headaches Colon polyps COPD (chronic obstructive pulmonary disease) Depression with anxiety Dermatitis, seborrheic Diabetes mellitus Diverticulitis Dyspepsia Dyspnea on exertion Ecchymoses, spontaneous Elevated LFTs Fatty liver GERD (gastroesophageal reflux disease) Hearing loss HTN (hypertension) Hypercholesterolemia Hyperlipidemia Left shoulder pain Nephrolithiasis Papule Psoriasis Rash Rectal bleeding Renal insufficiency Right knee pain Right shoulder pain Sciatica Shortness of breath Urinary frequency Surgical History (Updated 05/06/21 @ 10:38 by GURPREET Cruz) Colonoscopy - MAC (06/19/17) H/O cataract extraction S/P hernia repair Social History Smoking/Tobacco Use Status: Former Tobacco Use Quit Date: 08/28/00 Smoking risk assessment performed?: Yes Alcohol Intake: never Drug use: Never Substance use type: does not use Household members: spouse Housing: house Number of Children: 3 Communication Needs: Hard of Hearing current occupation: Retired Current gender identity: male What is your relationship status?: Panel score (0-1 are the most socially isolated patients): 1 What type of physical activity do you participate in: walking and additional Do you feel safe at home: Yes Do you feel safe in your relationship?: Yes Exam Narrative Exam Narrative: GEN: awake, alert, oriented 3. Pleasant, well groomed, interactive. HEAD: Normocephalic, atraumatic EYES: PERRL, EOMI NECK: Full ROM, no ARMANDO, no menigismus CHEST/RESP: No respiratory distress EXT: Full ROM, no edema, no rash. Right calf mild tenderness laterally. Neuro: Grossly normal neurologic exam, conversant, interactive. Psych: Speech fluent, thoughts congruent, affect normal
[2021-08-24 10:32] VITALS: BP 133/76; PULSE 71; RESP 18; TEMP 36.9; O2SAT 94
--- NOTE | 2021-08-24 10:51 | NUR.NOTE ---
Faxed referral to PCP-Tierney Jordan @ [facility]: [facility] for a follow up in one week for superficial thrombophlebitis. Put the referral in the care specialist's box for follow-up.
== END 2021-08-24 10:55 | disposition home or self-care (01) ==
PROVIDERS: Emergency Provider Emergency Medicine; PCP Family Medicine
DX: I80.01 Phlebitis and thrombophlebitis of superficial vessels of right lower extremity (principal)
CPT/HCPCS: 99281; 99282

== ENCOUNTER 2021-08-28 07:44 | Emergency (ER) | payer MEDICARE, SELFPAY ==
[2021-08-28 07:47] VITALS: BP 132/74; PULSE 92; RESP 18; TEMP 36.7; O2SAT 96
[2021-08-28 08:11] VITALS: RESP 16
--- NOTE | 2021-08-28 08:15 | DI.US_ITS ---
Exam(s) US LOWER EXTREMITY VENOUS RT EXAM: US LOWER EXTREMITY VENOUS RT CLINICAL HISTORY: posterior calf pain, has superficial blood clot TECHNIQUE: Ultrasound performed using standard protocol. COMPARISON: US US LOWER EXTREMITY VENOUS RT from 08/24/2021 FINDINGS: Duplex evaluation of the deep venous system of the right lower extremity was performed according to t usual protocol. The patient has known superficial venous thrombus in the right calf. Superficial thrombus is again seen in the lateral proximal calf and in the distal lateral thigh. Thi s measures about 9 cm in length, decreased from 17 cm in length on prior examination of August 24. There is no evidence of deep venous thrombus. No proximal greater saphenous vein thrombus identified . IMPRESSION: No evidence of DVT. DATA REPOSITORY:
--- NOTE | 2021-08-28 08:26 | ED.GENADUL_ITS ---
Discharge Plan Disposition Patient Disposition: HOME Condition: Improving Discharge Details Clinical Impression: Superficial thrombophlebitis of right leg Primary Care Provider: Tierney Jordan V ED Provider: Chel Oh Home Meds and New Rx's Prescriptions: Continued clonazepam 1 mg Tablet 1 mg PO BID RF: 0 montelukast 10 mg Tablet 10 mg PO DAILY RF: 0 cholecalciferol (vitamin D3) [Vitamin D3] 2,000 unit Tablet 2,000 unit PO DAILY RF: 0 Incruse Ellipta 62.5 mcg/actuation Blister With Device 1 inh INHALATION DAILY RF: 0 ziprasidone HCl 20 mg capsule 20 mg PO BID RF: 0 diphenhydramine HCl [Banophen] 25 mg capsule 25 mg PO TID PRNRF: 0 metoprolol tartrate 25 mg tablet 12.5 mg PO BID RF: 0 celecoxib 200 mg capsule 200 mg PO BID PRN (Reason: pain) Qty: 60 RF: 0 albuterol sulfate 8.5 GM HFA aerosol inhaler 2 puff Inhalation Q6H PRN RF: 0 fluticasone propionate [Flonase] 16 GM spray,suspension 50 mcg NS BID PRNRF: 0 betamethasone valerate 15 GM ointment 15 gm Topical Q12H PRN RF: 0 pantoprazole [Protonix] 40 MG tablet,delayed release (DR/EC) 40 mg PO DAILY RF: 0 clobetasol 50 ML solution 50 ml Topical Q12H PRN RF: 0 triamcinolone acetonide 80 GM cream 0 gm Topical PRN PRNRF: 0 citalopram 20 MG tablet 30 mg PO DAILY RF: 0 hydrochlorothiazide 12.5 MG capsule 12.5 mg PO DAILY RF: 0 nitroglycerin 0.4 mg Tablet, Sublingual 0.4 mg Sublingual PRN PRNRF: 0 hydrocodone-acetaminophen 5-325 mg tablet 1 tab PO Q6H PRNQty: 5 RF: 0 Discharge Instructions Instructions: Superficial Thrombophlebitis (ED) Additional Instructions: Your ultrasound today notes evidence of a superficial blood clot which actually appears improved compared to your previous ultrasound. It is recommended that you take 600 mg of ibuprofen every 6 hours as needed for pain. Call your primary care doctor on Monday to schedule a follow-up appointment for reevaluation. Return immediately to the emergency department if you develop any worsening or new concerning symptoms such as fever, worsening pain, redness or swellling. Discharge Data Discharge Date/Time-TO BE ENTERED AT DEPARTURE: 08/28/21 12:05 Discharge Physician: Chel Oh Medical Decision Making 71-year-old male diagnosed with superficial thrombophlebitis 3 days ago presents with worsening right calf pain for the past few days. His medication list notes an allergy to NSAIDs which causes tongue swelling and acetaminophen with recommendations for monitoring liver panel. Patient states he cannot take NSAIDs and Tylenol as needed and denies any history of anaphylaxis to these medications. He states his only allergy is atorvastatin which was determined recently which caused tongue swelling which she has currently stopped. Attempted to remove these medications from his allergy list but unable. Co ntacted pharmacy and they will try to adjust. Will order a repeat ultrasound to rule out DVT and give a dose of ibuprofen. Ultrasound notes some improvement in the superficial thrombophlebitis compared to previous US. No evidence of DVT. Patient reassessed and his pain is significantly improved. Patient feels comfortable going home. Advised to take ibuprofen every 6 hours as needed for pain in addition to Tylenol sparingly as needed. Advised that he can apply warm compresses to the area, rest and elevate. Advised to follow up with the primary care doctor for re-evaluation. Usual and customary return precautions given prior to discharge. Medical Records Medical records reviewed: Yes I reviewed the patient's medical records. Imaging Data Radiologic Study: Radiologist's impression: US Duplex Right Lower Extremity Veins, Limited Exam date and time: 08/28/2021 8:27 AM Age: 71 years old Clinical indication: Other: Posterior calf pain, known superficial thromophlebitis TECHNIQUE: Imaging protocol: Real-time Duplex ultrasound of the Right Lower Extremity with 2-D arellano scale, color Doppler flow and spectral waveform analysis with image documentation. Limited exam was focused on the right lower extremity veins. COMPARISON: US LOWER EXTREMITY VENOUS RT 08/24/2021 10:12 AM FINDINGS: Right deep veins: Unremarkable. The common femoral, femoral, proximal profunda femoral and popliteal veins are patent without thrombus. Normal Doppler waveforms. Normal compressibility and/or augmentation response. Right superficial veins: There is a and 8 cm superficial thrombosed vein that extends from the right lateral thigh to the right lateral calf. Soft tissues: Unremarkable. IMPRESSION: 1. No evidence of deep vein thrombosis. 2. Thrombosed superficial vein in the lateral aspect of the right lower extremity. This may represent thrombophlebitis. Recommend correlation with physical exam. HPI General Mode of arrival: ambulatory . Date/Time Provider Initiated Documentation: 08/28/21 08:01 . Limitations to Documentation: no limitations . Information obtained by: patient . HPI Narrative: Patient is a 71-year-old male who presents with right calf pain for the past week. Patient was seen here 3 days ago and diagnosed with superficial thrombophlebitis in his right calf. The doctor's note at that time noted that patient cannot take NSAIDs due to allergy and avoids taking acetaminophen. Patient's allergy list notes NSAIDs which causes tongue swelling and acetaminophen for monitoring of his liver panels. Patient states he takes ibuprofen and any other NSAID in addition to Tylenol sparingly but denies any known history of tongue swelling with this. He states his only allergy is atorvastatin which causes tongue swelling. His medication list currently notes atorvastatin but he states he has not taken it for weeks due to the tongue swelling. Patient states for the past 3 days the pain in his right calf has become worse. He states he has not taken any medication for pain other than applying heat. Related Data Home Medications Medication Instructions Recorded Confirmed citalopram 30 mg PO DAILY 11/30/12 08/28/21 triamcinolone acetonide 0 gm TOPICAL PRN PRN 11/30/12 08/28/21 albuterol sulfate 2 puff INHALATION Q6H PRN inhaler 10/02/13 08/28/21 NS fluticasone propionate [Flonase] 50 mcg NS BID PRN spray NS 10/02/13 08/28/21 betamethasone valerate 15 gm TOPICAL Q12H PRN script 06/06/14 08/28/21 clobetasol 50 ml TOPICAL Q12H PRN script 06/06/14 08/28/21 pantoprazole [Protonix] 40 mg PO DAILY tab-cap 06/06/14 08/28/21 hydrochlorothiazide 12.5 mg PO DAILY 02/09/17 08/28/21 nitroglycerin 0.4 mg SUBLINGUAL PRN PRN 12/29/18 08/28/21 Incruse Ellipta 1 inh INHALATION DAILY 09/27/19 08/28/21 cholecalciferol (vitamin D3) 2,000 unit PO DAILY 09/27/19 08/28/21 [Vitamin D3] clonazepam 1 mg PO BID 09/27/19 08/28/21 montelukast 10 mg PO DAILY 09/27/19 08/28/21 diphenhydramine HCl 25 mg capsule 25 mg PO TID PRN 06/10/20 08/28/21 ziprasidone HCl 20 mg capsule 20 mg PO BID 06/10/20 08/28/21 metoprolol tartrate 25 mg tablet 12.5 mg PO BID tab 12/29/20 08/28/21 celecoxib 200 mg capsule 200 mg PO BID PRN #60 cap 04/01/21 08/28/21 hydrocodone-acetaminophen 1 tab PO Q6H PRN #5 tab 04/21/21 08/24/21 Previous Rx's Medication Instructions Recorded celecoxib 200 mg capsule 200 mg PO BID PRN #60 cap 04/01/21 hydrocodone-acetaminophen 1 tab PO Q6H PRN #5 tab 04/21/21 Allergies Allergy/AdvReac Type Severity Reaction Status Date / Time atorvastatin Allergy Severe Unverified 08/28/21 08:22 lisinopril Allergy Severe Verified 08/28/21 07:51 NSAIDS (Non-Steroidal Allergy Severe tongue Verified 08/28/21 08:34 Anti-Inflamma swells acetaminophen AdvReac Intermediate MONITORING Verified 08/28/21 07:51 LIVER PANELS General Stated Complaint: Vascular AMANDA: 3 Review of Systems All systems reviewed & are unremarkable except as noted in HPI and below Constitutional Constitutional: Reports as per HPI, Denies chills and Denies fever(s) Eyes Eyes: Denies blurry vision ENT Ears, Nose, Mouth, and Throat: Denies dizziness, Denies sore throat and Denies throat swelling Cardiovascular Cardiovascular: Denies chest pain and Denies dyspnea Respiratory Respiratory: Denies cough and Denies dyspnea Gastrointestinal Gastrointestinal: Denies abdominal pain, Denies diarrhea and Denies vomiting Genitourinary Genitourinary: Denies hematuria and Denies dysuria Musculoskeletal Musculoskeletal: Denies back pain and Denies numbness Comments: R leg pain Integumentary/Breasts Skin/Breast: Denies lesions and Denies rash Neurologic Neurologic: Denies dizziness, Denies localized weakness and Denies numbness Allergic/Immunologic Allergic/Immunologic: Denies throat swelling PFSH All Active Problems (Updated 01/01/22 @ 11:43 by Chel Oh DO) Pain of right calf (Acute) Superficial thrombophlebitis of right leg (Acute) Superficial thrombophlebitis of right leg (Acute) 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 (Acute) S/P left knee arthroscopy (Acute 04/21/21) Tear of left rotator cuff (Acute 10/28/13) DJD AC joint, left (Acute 10/28/13) Tubulovillous adenoma of colon (Acute 06/19/17) Erectile dysfunction (Acute) Urinary frequency (Acute) Knee pain, right (Acute) Hip pain, right (Acute) Primary osteoarthritis of right knee (Acute) Steroid injection: 07/14/2020 Primary osteoarthritis of left knee (Acute) Trochanteric bursitis, right hip (Acute) Injection: 07/16/2021 Internal derangement of left knee (Acute) Tear of medial meniscus of left knee (Acute) Medical History AAA (abdominal aortic aneurysm) 12/24/20: Max Diameter 4cm Anxiety Bipolar disorder Cervical radiculopathy Cervicalgia Chest pain NST and tx with cholesterol meds has resolved Chronic headaches Colon polyps COPD (chronic obstructive pulmonary disease) Depression with anxiety Dermatitis, seborrheic Diabetes mellitus Diverticulitis Dyspepsia Dyspnea on exertion Ecchymoses, spontaneous Elevated LFTs Fatty liver GERD (gastroesophageal reflux disease) Hearing loss HTN (hypertension) Hypercholesterolemia Hyperlipidemia Left shoulder pain Nephrolithiasis Papule Psoriasis Rash Rectal bleeding Renal insufficiency Right knee pain Right shoulder pain Sciatica Shortness of breath Urinary frequency Surgical History (Updated 05/06/21 @ 10:38 by GURPREET Cruz) Colonoscopy - MAC (06/19/17) H/O cataract extraction S/P hernia repair Social History Smoking/Tobacco Use Status: Former Tobacco Use Quit Date: 08/28/00 Smoking risk assessment performed?: Yes Alcohol Intake: never Drug use: Never Substance use type: does not use Household members: spouse Housing: house Number of Children: 3 Communication Needs: Hard of Hearing current occupation: Retired Current gender identity: male What is your relationship status?: Panel score (0-1 are the most socially isolated patients): 1 What type of physical activity do you participate in: walking and additional Do you feel safe at home: Yes Do you feel safe in your relationship?: Yes Exam Const General: cooperative, healthy appearing and no acute distress HENMT Head: normal to inspection Mouth: oral mucosae normal Eyes General: appearance normal, both eyes and all related structures Neck Neck: normal visual inspection Resp Effort & Inspection: normal respiratory effort and able to speak in complete sentences Cardio Rate: regular rate Skin General skin exam: no rashes or lesions noted Neuro General: patient alert, patient awake and patient oriented x3 Motor: muscle tone normal throughout Extrem Ankle/foot/toe images: 1. Tender to palpation overlying two approximately 1 x 1 cm and 1.5 x 1.5 cm erythematous papules consistent with superficial blood clot on right proximal posterolateral leg. 2. Tender to palpation right lateral leg. No crepitus, edema, ecchymosis or erythema. Psych Appearance: grossly normal Affect: normal affect Course Vital Signs Vital signs: Vital Signs Temperature 98.1 F 08/28/21 07:47 Pulse 92 H 08/28/21 07:47 Respiratory Rate 18 08/28/21 07:47 Blood Pressure 132/74 08/28/21 07:47 Pulse Oximetry 96 08/28/21 07:47 Temperature 98.1 F 08/28/21 07:47 Temperature Source Temporal Artery Scan 08/28/21 07:47 Pulse 92 H 08/28/21 07:47 Respiratory Rate 16 08/28/21 08:11 Respiratory Effort 08/28/21 08:11 Respiratory Depth Normal 08/28/21 08:11 Respiratory Pattern Normal 08/28/21 08:11 Blood Pressure 132/74 08/28/21 07:47 Blood Pressure Position Sitting 08/28/21 07:47 Pulse Oximetry 96 08/28/21 07:47 Oxygen Delivery Method Room Air 08/28/21 07:47 Oxygen Flow Rate 0 08/28/21 07:47 Pain Level 8 08/28/21 08:11
[2021-08-28] MEDS: Ibuprofen 600 MG TAB PO (08:40)
--- NOTE | 2021-08-28 10:13 | DI.VRAD_ITS ---
PROCEDURE INFORMATION: Exam: US Duplex Right Lower Extremity Veins, Limited Exam date and time: 08/28/2021 8:27 AM Age: 71 years old Clinical indication: Other: Posterior calf pain, known superficial thromophlebitis TECHNIQUE: Imaging protocol: Real-time Duplex ultrasound of the Right Lower Extremity with 2-D arellano scale, color Doppler flow and spectral waveform analysis with image documentation. Limited exam was focused on the right lower extremity veins. COMPARISON: US LOWER EXTREMITY VENOUS RT 08/24/2021 10:12 AM FINDINGS: Right deep veins: Unremarkable. The common femoral, femoral, proximal profunda femoral and popliteal veins are patent without thrombus. Normal Doppler waveforms. Normal compressibility and/or augmentation response. Right superficial veins: There is a and 8 cm superficial thrombosed vein that extends from the right lateral thigh to the right lateral calf. Soft tissues: Unremarkable. IMPRESSION: 1. No evidence of deep vein thrombosis. 2. Thrombosed superficial vein in the lateral aspect of the right lower extremity. This may represent thrombophlebitis. Recommend correlation with physical exam. Dictated and Authenticated by: Adam Tello MD. Ordering:IZZY Milligan MD
[2021-08-28 12:04] VITALS: BP 132/74; PULSE 92; RESP 16; TEMP 36.7; O2SAT 96
== END 2021-08-28 12:05 | disposition home or self-care (01) ==
PROVIDERS: Emergency Provider Physician Assistant; PCP Family Medicine
DX: I80.01 Phlebitis and thrombophlebitis of superficial vessels of right lower extremity (principal)
CPT/HCPCS: 99284; 93971; 99283

== ENCOUNTER 2021-09-21 02:56 | Outpatient (CLI) | payer MEDICARE, SELFPAY ==
--- NOTE | 2021-09-21 | DI.US_ITS ---
Exam(s) US LOWER EXTREMITY VENOUS RT EXAM: US LOWER EXTREMITY VENOUS RT CLINICAL HISTORY: RT LEG PAIN M79.604, COMPARE TO OTHER 2 EXAMS TECHNIQUE: Right lower extremity venous ultrasound performed using grayscale, color-flow, and spectr al Doppler analysis. COMPARISON: US US LOWER EXTREMITY VENOUS RT from 08/24/2021 US US LOWER EXTREMITY VENOUS RT from 08/28/2021 FINDINGS: The right common femoral, femoral and popliteal veins demonstrate normal compressibility, augmentatio n, and color Doppler. The posterior tibial veins are patent. Since the prior examination from 08/28/19, there is developed thrombus in the greater saphenous vein from the mid thigh through to the ankle /foot. It begins 14 cm distal to the saphenofemoral junction. It extends from the mid thigh to the level of the ankle. The saphenofemoral junction is unremarkable. There has been a decrease in lengt h of the superficial thrombus previously seen laterally. This thrombus is now approximately only 10 cm in length. There is no evidence of a [place] cyst. The soft tissues are unremarkable. IMPRESSION: 1. No DVT. 2. New superficial thrombus involving the greater saphenous vein. The thrombus begins 14 cm distal t o the saphenofemoral junction. 3. Interval decrease in length of the thrombus previously seen involving the right calf. DATA REPOSITORY:
== END 2021-09-21 03:16 ==
PROVIDERS: PCP Family Medicine; Visit Provider Nurse Practitioner Family
DX: M79.604 Pain in right leg (principal); I82.811 Embolism and thrombosis of superficial veins of right lower extremity
CPT/HCPCS: 93971

== ENCOUNTER → 2021-10-14 07:48 | Outpatient (BNVA) | payer MEDICARE, SELFPAY | PROVIDERS: PCP Family Medicine; Visit Provider Student in an Organized Health Care Education/Training Program | DX: M19.211 Secondary osteoarthritis, right shoulder (principal); M17.11 Unilateral primary osteoarthritis, right knee; M70.61 Trochanteric bursitis, right hip | CPT/HCPCS: 99214 ==

== ENCOUNTER 2021-10-22 02:46 | Outpatient (CLI) | payer MEDICARE, SELFPAY ==
--- NOTE | 2021-10-22 08:00 | DI.CT_ITS ---
Exam(s) CT CHEST WO EXAM: CT CHEST WO CLINICAL HISTORY: HX TOBACCO USE Z87.891, SCREENING FOR LUNG CANCER. TECHNIQUE: Multi planar reconstructions were performed. CONTRAST MATERIAL: None COMPARISON: CT CT CHEST W from 01/11/2019 FINDINGS: CHEST: LUNGS: No significant right lung findings. There is mild infiltrate in the inferior lingular segment left lung. This has benign appearance. Also mild mild benign-appearing increased markings in the a nterior basal segment of the left lower lobe and posterior basal segment of the right lower lobe. Th ere are no pleural effusions. No ominous pulmonary nodules. No significant focal findings in the tr achea and mainstem bronchi. Mild mucous noted on the dependent wall of the right mainstem bronchus MEDIASTINUM: There is no obvious hilar nor mediastinal adenopathy. Visualized thyroid unremarkable.No obvious axillary adenopathy CARDIAC: Heart size is normal. There is no pericardial effusion.Caliber of the thoracic aorta is wit hin normal limits. VISUALIZED UPPER ABDOMEN:Prominent inferior aspect of the right hepatic lobe but unchanged from December 27 and therefore most probably benign. OSSEOUS: No significant osseous lesions.. IMPRESSION: 1. No significant pulmonary nodules. No intrathoracic adenopathy. 2. Mild benign-appearing infiltrate noted in the inferior lingular segment of the left lung. 3. Recommend repeat noninfused CT scan in 6 months to ensure stability. RADIATION DOSE DELIVERED: 91.4mGy.cm Total DLP DATA REPOSITORY: All CT scans at this facility are submitted to the National Radiology Data Registry (NRDR) Dose Index Registry (DIR) with the [employer] ([employer]). RADIATION OPTIMIZATION: All CT scans at this facility use at least one of these dose optimization te chniques: automated exposure control; mA and/or kV adjustment per patient size (includes targeted exa ms where dose is matched to clinical indication); or iterative reconstruction.
== END 2021-10-22 03:06 ==
PROVIDERS: PCP Family Medicine; Visit Provider Family Medicine
DX: Z12.2 Encounter for screening for malignant neoplasm of respiratory organs (principal); Z87.891 Personal history of nicotine dependence; R91.8 Other nonspecific abnormal finding of lung field
CPT/HCPCS: 71250

== ENCOUNTER 2021-12-16 10:33 | Outpatient (CLI) | payer MEDICARE, SELFPAY ==
--- NOTE | 2021-12-16 08:15 | DI.RAD_ITS ---
Exam(s) XR SHOULDER LT COMPLETE 2+V EXAM: XR SHOULDER LT COMPLETE 2+V CLINICAL HISTORY: left shoulder pain. TECHNIQUE: 2D digital imaging was performed. COMPARISON: No priors of left shoulder FINDINGS: Two views There are 4 fastener devices in the humeral head. There are 2 similar appearing fastener devices at greater tuberosity level which probably prior rotator cuff repair. Two other fastener devices seen at the mid humeral head level and are possibly related to biceps teno desis. There are postsurgical changes in the left AC joint. No calcifications in the subacromial space. Mi ld degenerative changes in the glenohumeral joint. No osseous lesions. No radiographic evidence of osteomyelitis. IMPRESSION: Postsurgical changes as described above. DATA REPOSITORY: RADIATION DOSE DELIVERED:
== END 2021-12-16 10:34 | disposition home or self-care (01) ==
LOC: DIORS 10:34
PROVIDERS: PCP Family Medicine; Referring Provider Family Medicine; Visit Provider Student in an Organized Health Care Education/Training Program
DX: M75.102 Unspecified rotator cuff tear or rupture of left shoulder, not specified as traumatic (principal); M19.211 Secondary osteoarthritis, right shoulder; M70.61 Trochanteric bursitis, right hip; Z98.890 Other specified postprocedural states
CPT/HCPCS: 99214; 73030

== ENCOUNTER 2021-12-30 19:57 | Outpatient (REF) | payer MEDICARE, SELFPAY ==
[2021-12-30 15:12] LABS: HGB 15.6 g/dL (13.5-17.5); MCH 30.8 pg (27.0-33.0); MCHC 32.5 % (32.0-36.0); MCV 95 fL (80-95); MPV 10.9 fL (8.0-11.0); Platelet Count 133 10^3/uL (130-400); RBC 5.06 10^6/uL (4.36-5.78); RDW-SD 49.2 fL; WBC 6.73 10^3/uL (4.4-10.8)
[2021-12-30 15:23] LABS: ALT 43 U/L (16-63); AST 45 U/L (15-37); Albumin 3.9 g/dL (3.4-5.0); Alkaline Phosphatase 116 U/L (46-116); Anion Gap 10.4 mmol/L (3-11); BUN 17 mg/dL (7-18); Bilirubin, Total 0.6 mg/dL (0.2-1.0); CO2 28.6 mmol/L (21.0-32.0); CREATININE 1.2 mg/dL (0.70-1.30); Calcium 9.2 mg/dL (8.5-10.1); Chloride 100 mmol/L (98-107); Estimated GFR 59.68 (mL/min/1.73m2); Glucose 86 mg/dL (74-106); Potassium 4.4 mmol/L (3.5-5.1); Sodium 139 mmol/L (136-145); Total Protein 7.9 g/dL (6.4-8.2)
[2022-01-04 10:47] LABS: 2-OH-Ethyl-Flurazepam Negative ng/mL (Cutoff: 10); 7-NH-Clonazepam 847 ng/mL (Cutoff: 10); 7-NH-Flunitrazepam Negative ng/mL (Cutoff: 10); Alpha OH-Alprazolam Negative ng/mL (Cutoff: 10); Alpha-OH Midazolam Negative ng/mL (Cutoff: 10); Alpha-OH-Triazolam Negative ng/mL (Cutoff: 10); Alprazolam Negative ng/mL (Cutoff: 10); Benzodiazepines Interpretation Positive.; Chlordiazepoxide Negative ng/mL (Cutoff: 10); Clobazam Negative ng/mL (Cutoff: 10); Clonazepam 25 ng/mL (Cutoff: 10); Diazepam Negative ng/mL (Cutoff: 10); Flurazepam Negative ng/mL (Cutoff: 10); Lorazepam Negative ng/mL (Cutoff: 10); Midazolam Negative ng/mL (Cutoff: 10); N-Desmethylclobazam Negative ng/mL (Cutoff: 10); Prazepam Negative ng/mL (Cutoff: 10); Temazepam Negative ng/mL (Cutoff: 10); Triazolam Negative ng/mL (Cutoff: 10); Zolpidem Carboxylic acid Negative ng/mL (Cutoff: 10)
== END 2021-12-30 19:58 | disposition home or self-care (01) ==
LOC: NCHCN 19:57
PROVIDERS: PCP Family Medicine; Visit Provider Family Medicine
DX: E11.9 Type 2 diabetes mellitus without complications (principal); E78.5 Hyperlipidemia, unspecified; K76.0 Fatty (change of) liver, not elsewhere classified; R79.89 Other specified abnormal findings of blood chemistry; Z51.81 Encounter for therapeutic drug level monitoring
CPT/HCPCS: 80053; 85027; 80346

== ENCOUNTER → 2022-05-23 10:29 | Outpatient (BNVA) | payer MEDICARE, SELFPAY | PROVIDERS: PCP Family Medicine; Referring Provider Family Medicine; Visit Provider Physician Assistant | DX: S46.912A Strain of unspecified muscle, fascia and tendon at shoulder and upper arm level, left arm, initial encounter (principal); X50.0XXA Overexertion from strenuous movement or load, initial encounter; M75.22 Bicipital tendinitis, left shoulder | CPT/HCPCS: 99214 ==

== ENCOUNTER → 2022-07-04 09:46 | Outpatient (BNVA) | payer MEDICARE, SELFPAY | PROVIDERS: PCP Family Medicine; Referring Provider Family Medicine; Visit Provider Student in an Organized Health Care Education/Training Program | DX: M75.22 Bicipital tendinitis, left shoulder (principal) | CPT/HCPCS: 20610; J1040 ==

== ENCOUNTER 2022-07-26 13:59 | Outpatient (REF) | payer MEDICARE, SELFPAY ==
[2022-07-28 12:42] LABS: 2-OH-Ethyl-Flurazepam Negative ng/mL (Cutoff: 10); 7-NH-Clonazepam 827 ng/mL (Cutoff: 10); 7-NH-Flunitrazepam Negative ng/mL (Cutoff: 10); Alpha OH-Alprazolam Negative ng/mL (Cutoff: 10); Alpha-OH Midazolam Negative ng/mL (Cutoff: 10); Alpha-OH-Triazolam Negative ng/mL (Cutoff: 10); Alprazolam Negative ng/mL (Cutoff: 10); Benzodiazepines Interpretation Positive.; Chlordiazepoxide Negative ng/mL (Cutoff: 10); Clobazam Negative ng/mL (Cutoff: 10); Clonazepam 21 ng/mL (Cutoff: 10); Diazepam Negative ng/mL (Cutoff: 10); Flurazepam Negative ng/mL (Cutoff: 10); Lorazepam Negative ng/mL (Cutoff: 10); Midazolam Negative ng/mL (Cutoff: 10); N-Desmethylclobazam Negative ng/mL (Cutoff: 10); Prazepam Negative ng/mL (Cutoff: 10); Temazepam Negative ng/mL (Cutoff: 10); Triazolam Negative ng/mL (Cutoff: 10); Zolpidem Carboxylic acid Negative ng/mL (Cutoff: 10)
[2022-07-29 16:09] LABS: O-desmethyltramadol 6305 ng/mL (Cutoff:25); Tramadol 5436 ng/mL (Cutoff:25)
== END 2022-07-26 14:00 | disposition home or self-care (01) ==
LOC: NCHCN 13:59
PROVIDERS: PCP Family Medicine; Visit Provider Family Medicine
DX: Z51.81 Encounter for therapeutic drug level monitoring (principal); Z12.11 Encounter for screening for malignant neoplasm of colon
CPT/HCPCS: 80373; 80346

== ENCOUNTER 2022-08-28 16:22 | Emergency (ER) | payer MEDICARE, SELFPAY ==
[2022-08-28 16:26] VITALS: BP 143/82; PULSE 91; RESP 18; TEMP 36.6; O2SAT 96
--- NOTE | 2022-08-28 16:46 | DI.CT_ITS ---
Exam(s) CT LUMBAR SPINE RECONS CT ABDOMEN PELVIS CTA EXAM: CT ABDOMEN PELVIS CTA CLINICAL HISTORY: hx of aaa, back pain. TECHNIQUE: Imaging Protocol: Axial CT angiography was performed with multi-slice acquisition and m ulti-planar and/or 3D reconstructions. CONTRAST MATERIAL: Intravenous: Omnipaque 350 Contrast volume:100 ml Oral: / no COMPARISON: US US AAA DIAGNOSTIC from 12/24/[address] CHEST WO from 10/22/[address] LUMBAR SPINE RECONS from 08/28/2022 FINDINGS: Vascular Structures: Celiac Armbrust/: Atherosclerotic changes with mild stenosis. SMA: Moderate atherosclerotic changes with proximally 50 percent stenosis. Renal Arteries: No evidence of stenosis. There is a single renal artery perfusing each kidney. Aorta: Infrarenal saccular aneurysm measuring 3.9 x 3.6 x 5.9 cm. Mural thrombus. No evidence of le ak. No significant change from prior ultrasound. No dissection. Pelvis: Iliac Arteries: No evidence of stenosis. Common Femoral Arteries: No evidence of stenosis. Soft Tissues: Lung bases:Dependent atelectasis. Liver: Normal density. Mildly nodular contour could indicate early cirrhosis. No measurable mass. Gallbladder and biliary tract: No radiodense calculus or dilation. Pancreas: Normal density, no abnormal calcifications or inflammatory process. Spleen: Normal. Kidneys: Normal size, contour and axis. Nonobstructing stone lower pole left kidney. Bilateral reg l cysts. No obstructive uropathy. No suspicious masses seen. Adrenal glands: No masses seen. Bladder: Symmetric distention, no gross wall thickening. Bowel: No obstruction or bowel wall thickening. Peritoneal cavity: No ascites, collection or mesenteric inflammatory response. Bones: Pelvis: Mild degenerative changes of the hips. No suspicious lesions. Lumbar spine: No evidence of compression fracture, lytic or blastic lesion. Degenerative disc change s and facet degenerative changes are noted from L1-2 through L5-S1. Central canal stenosis noted at L3-4 and L4-5. Neural foraminal narrowing greatest at L2-3 and L3-4. Lymph nodes: Within normal limits. IMPRESSION: 3.9 x 3.6 cm saccular infrarenal abdominal aortic aneurysm with significant mural thrombus no evidenc e of leak. Degenerative changes of the lumbar spine. No acute abnormality. RADIATION DOSE DELIVERED: 911.61 mGy.cm Total DLP DATA REPOSITORY: All CT scans at this facility are submitted to the National Radiology Data Registry (NRDR) Dose Index Registry (DIR) with the [employer] (ACR). RADIATION OPTIMIZATION: All CT scans at this facility use at least one of these dose optimization te chniques: automated exposure control; mA and/or kV adjustment per patient size (includes targeted exa ms where dose is matched to clinical indication); or iterative reconstruction.
[2022-08-28 17:02] LABS: Abs Immature Grans 0.02 10^3/uL (0.0-0.06); Absolute Basophil Count 0.05 10^3/uL (0.0-0.2); Absolute Eosinophil Count 0.17 10^3/uL (0.0-0.7); Absolute Monocyte Count 0.53 10^3/uL (0.1-0.8); Absolute Neutrophil Count 5.61 10^3/uL (1.2-6.7); Basophils % 0.6; Eosinophils % 2.1; HCT 49.2 % (40.0-50.0); HGB 16.1 g/dL (13.5-17.5); Immature Grans % 0.2; MCH 31.3 pg (27.0-33.0); MCHC 32.7 % (32.0-36.0); MCV 96 fL (80-95); MPV 9.9 fL (8.0-11.0); Monocytes % 6.5; Neutrophils % 68.6; Platelet Count 154 10^3/uL (130-400); RBC 5.15 10^6/uL (4.36-5.78); RDW 13.2 % (11.8-14.1); RDW-SD 47.2 fL; WBC 8.18 10^3/uL (4.4-10.8)
[2022-08-28 17:17] LABS: ALT 36 U/L (16-63); AST 32 U/L (15-37); Albumin 3.7 g/dL (3.4-5.0); Alkaline Phosphatase 136 U/L (46-116); Anion Gap 4.5 mmol/L (3-11); BUN 17 mg/dL (7-18); Bilirubin, Total 0.5 mg/dL (0.2-1.0); CO2 33.5 mmol/L (21.0-32.0); CREATININE 1.4 mg/dL (0.70-1.30); Calcium 9.2 mg/dL (8.5-10.1); Chloride 100 mmol/L (98-107); Glucose 132 mg/dL (74-106); Lipase 58 U/L (73-393); Potassium 3.8 mmol/L (3.5-5.1); Sodium 138 mmol/L (136-145); Total Protein 8.3 g/dL (6.4-8.2)
[2022-08-28] MEDS: Omnipaque 350 MG/ML 100 ML BTL IJ (18:05)
[2022-08-28] MEDS: Normal Saline - Diluent 50 ML VIAL IJ (18:06)
[2022-08-28 18:27] LABS: Bilirubin Negative (Negative); Blood Negative (Negative); Clarity Clear (Clear); Glucose Negative (Negative); Ketones Negative (Negative); Leukocyte Esterase Negative (Negative); Nitrite Negative (Negative); Specific Gravity 1.015 (1.005-1.025); Urobilinogen 0.2 EU/dL (Up TO 0.2)
--- NOTE | 2022-08-28 18:30 | ED.GENADUL_ITS ---
Discharge Plan Disposition Patient Disposition: Transfer-Acute Inpatient Care Specific Acute Inpt Facility: [facility] Condition: Serious Discharge Details Clinical Impression: Aortic aneurysm, Back pain Primary Care Provider: Tierney Jordan V ED Provider: Brenda Medrano Home Meds and New Rx's Prescriptions: No Action clonazepam 1 mg Tablet 1 mg PO BID montelukast 10 mg Tablet 10 mg PO DAILY cholecalciferol (vitamin D3) [Vitamin D3] 2,000 unit Tablet 2,000 unit PO DAILY ziprasidone HCl 20 mg capsule 20 mg PO BID Rx Instructions: give with food (meal/snack) diphenhydramine HCl [Banophen] 25 mg capsule 25 mg PO TID PRN albuterol sulfate 8.5 GM HFA aerosol inhaler 2 puff Inhalation Q6H PRN fluticasone propionate [Flonase] 16 GM spray,suspension 50 mcg NS BID PRN Label Comments: +2 weeks 2 sprays prn betamethasone valerate 15 GM ointment 15 gm Topical Q12H PRN pantoprazole [Protonix] 40 MG tablet,delayed release (DR/EC) 40 mg PO DAILY clobetasol 50 ML solution 50 ml Topical Q12H PRN celecoxib 200 mg capsule See Rx Instructions .ROUTE .COMPLEX Qty: 30 2RF Dose Instruction: TAKE ONE CAPSULE BY MOUTH EVERY DAY Rx Instructions: TAKE ONE CAPSULE BY MOUTH EVERY DAY triamcinolone acetonide 80 GM cream 0 gm Topical PRN PRN citalopram 20 MG tablet 30 mg PO DAILY hydrochlorothiazide 12.5 MG capsule 12.5 mg PO DAILY nitroglycerin 0.4 mg Tablet, Sublingual 0.4 mg Sublingual PRN PRN fluticasone propionate [Flovent HFA] 220 mcg/actuation HFA aerosol inhaler 2 inh INHALATION BID Label Comments: INHALE TWO PUFFS BY MOUTH TWICE A DAY Discharge Data Discharge Date/Time-TO BE ENTERED AT DEPARTURE: 08/28/22 21:30 Medical Decision Making This 72-year-old gentleman with back pain for the past 4 days with known history of abdominal aortic aneurysm with ultrasound noted in our system without recent CT has no reproducible tenderness on exam or focal neurological findings Given his age and comorbidities, CTA was ordered of his aorta CTA shows approximately 4 cm abdominal aortic aneurysm with a 2.7 cm mural thrombus, he remains neurovascularly intact on exam although does report paresthesias to his extremities which is new today Given complexity of CTA, case was discussed with Dr. Murphy, vascular surgeon at [facility], she agrees to accept this patient to her service Secondary to capacity SCDs at the accepting hospital, patient will be transferred to the emergency department Patient wishes to be full CODE STATUS, he is agreeable to transfer to [facility] at this time He has remained hemodynamically stable, fully alert and oriented although quite hard of hearing throughout this encounter Transportation will be arranged at this time Diagnostic labs reviewed without significant acute abnormality, creatinine 1.4, not significantly changed from prior HPI General Date/Time Provider Initiated Documentation: 08/28/22 16:33 . HPI Narrative: This 72-year-old male presents with report of back pain. He states he has a remote history of back pain but its not been for many many years. States it started about 4 days ago and is gradually become worse. He states he today developed some paresthesias in his legs with concern him. Denies any radiation of pain. He denies any abdominal discomfort. He denies any fever or chills. Denies any chest pain or shortness of breath. Related Data Home Medications Medication Instructions Recorded Confirmed citalopram 20 mg tablet 30 mg PO DAILY 11/30/12 08/28/22 triamcinolone acetonide 0.1 % 0 gm topical PRN PRN 11/30/12 08/28/22 topical cream Flonase 50 mcg/actuation nasal 50 mcg NS BID PRN 10/02/13 08/28/22 spray,suspension (fluticasone propionate) albuterol sulfate 90 mcg/actuation 2 puff inhalation Q6H PRN 10/02/13 08/28/22 aerosol inhaler betamethasone valerate 0.1 % 15 gm topical Q12H PRN 06/06/14 08/28/22 topical ointment clobetasol 0.05 % scalp solution 50 ml topical Q12H PRN 06/06/14 07/04/22 pantoprazole 40 mg tablet,delayed 40 mg PO DAILY 06/06/14 08/28/22 release (Protonix) hydrochlorothiazide 12.5 mg capsule 12.5 mg PO DAILY 02/09/17 08/28/22 nitroglycerin 0.4 mg sublingual 0.4 mg sublingual PRN PRN 12/29/18 08/28/22 tablet cholecalciferol (vitamin D3) 50 2,000 unit PO DAILY 09/27/19 08/28/22 mcg (2,000 unit) tablet (Vitamin D3) clonazepam 1 mg tablet 1 mg PO BID 09/27/19 08/28/22 montelukast 10 mg tablet 10 mg PO DAILY 09/27/19 08/28/22 diphenhydramine HCl 25 mg capsule 25 mg PO TID PRN 06/10/20 08/28/22 (Banophen) ziprasidone HCl 20 mg capsule 20 mg PO BID 06/10/20 08/28/22 celecoxib 200 mg capsule See Rx Instructions .Route 06/02/22 07/04/22 .COMPLEX #30 caps fluticasone propionate 220 2 inh inhalation BID 08/28/22 08/28/22 mcg/actuation HFA aerosol inhaler (Flovent HFA) Previous Rx's Medication Instructions Recorded celecoxib 200 mg capsule See Rx Instructions .Route 06/02/22 .COMPLEX #30 caps Allergies Allergy/AdvReac Type Severity Reaction Status Date / Time atorvastatin Allergy Severe Unverified 08/28/22 16:29 lisinopril Allergy Severe Verified 08/28/22 16:29 NSAIDS (Non-Steroidal Allergy Severe tongue Verified 08/28/22 16:29 Anti-Inflamma swells acetaminophen AdvReac Intermediate MONITORING Verified 08/28/22 16:29 LIVER PANELS General Stated Complaint: Nk/Back Pain AMANDA: 4 Review of Systems All systems reviewed & are unremarkable except as noted in HPI and below PFSH All Active Problems (Updated 08/31/22 @ 19:51 by GURPREET Page) Aortic aneurysm (Chronic) Back pain (Acute) Tendonitis of upper biceps tendon of left shoulder (Acute) Pain of right calf (Acute) Superficial thrombophlebitis of right leg (Acute) Superficial thrombophlebitis of right leg (Acute) 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 (Acute) S/P left knee arthroscopy (Acute 04/21/21) Tear of left rotator cuff (Acute 10/28/13) DJD AC joint, left (Acute 10/28/13) Tubulovillous adenoma of colon (Acute 06/19/17) Erectile dysfunction (Acute) Urinary frequency (Acute) Knee pain, right (Acute) Hip pain, right (Acute) Primary osteoarthritis of right knee (Acute) Steroid injection: 07/14/2020 Primary osteoarthritis of left knee (Acute) Trochanteric bursitis, right hip (Acute) Injection: 07/16/2021 Internal derangement of left knee (Acute) Tear of medial meniscus of left knee (Acute) Medical History AAA (abdominal aortic aneurysm) 12/24/20: Max Diameter 4cm Anxiety Bipolar disorder Cervical radiculopathy Cervicalgia Chest pain NST and tx with cholesterol meds has resolved Chronic headaches Colon polyps COPD (chronic obstructive pulmonary disease) Depression with anxiety Dermatitis, seborrheic Diabetes mellitus Diverticulitis Dyspepsia Dyspnea on exertion Ecchymoses, spontaneous Elevated LFTs Fatty liver GERD (gastroesophageal reflux disease) Hearing loss HTN (hypertension) Hypercholesterolemia Hyperlipidemia Left shoulder pain Nephrolithiasis Papule Psoriasis Rash Rectal bleeding Renal insufficiency Right knee pain Right shoulder pain Sciatica Shortness of breath Urinary frequency Surgical History (Updated 05/06/21 @ 10:38 by GURPREET Cruz) Colonoscopy - MAC (06/19/17) H/O cataract extraction S/P hernia repair Social History Smoking/Tobacco Use Status: Former Tobacco Use Quit Date: 08/28/00 Smoking risk assessment performed?: Yes Alcohol Intake: never Drug use: Never Substance use type: does not use Household members: spouse Housing: house Number of Children: 3 Communication Needs: Hard of Hearing current occupation: Retired Current gender identity: male What is your relationship status?: Panel score (0-1 are the most socially isolated patients): 1 What type of physical activity do you participate in: walking and additional Do you feel safe at home: Yes Do you feel safe in your relationship?: Yes Exam Const General: cooperative, comfortable and no acute distress Orientation: alert and oriented x3 HENMT Head: normal to inspection Eyes Pupils: PERRL Resp Effort & Inspection: normal respiratory effort Auscultation: clear to auscultation bilaterally Cardio Rate: regular rate Rhythm: regular rhythm Other: distal pulses intact GI Other: no abdominal tenderness no cva tenderness Back/Spine/Pelvis Back: no CVA tenderness Other: no lumbar tenderness Skin Other: no rashes or lesions Neuro General: patient alert and patient oriented x3 Cognition: normal cognition Speech: speech normal Gait: antalgic Motor: strength 5/5 throughout Sensory Exam: no sensory deficits noted Other: -slr and babinski bilaterally Extrem Other: distal pulses intact to upper and lower extremies coloration intact Course Vital Signs Vital signs: Vital Signs Temperature 36.6 C 08/28/22 16:26 Pulse 91 H 08/28/22 16:26 Respiratory Rate 18 08/28/22 16:26 Blood Pressure 143/82 H 08/28/22 16:26 Pulse Oximetry 96 08/28/22 16:26 Temperature 36.6 C 08/28/22 16:26 Pulse 91 H 08/28/22 16:26 Respiratory Rate 18 08/28/22 16:26 Respiratory Effort 08/28/22 16:29 Blood Pressure 143/82 H 08/28/22 16:26 Blood Pressure Position Supine 08/28/22 16:26 Pulse Oximetry 96 08/28/22 16:26 Oxygen Delivery Method Room Air 08/28/22 16:26 Oxygen Flow Rate 0 08/28/22 16:26 Pain Level 9 08/28/22 16:26 Lab/Test Results Lab/Test Results: Laboratory Tests Range/Units 08/28/22 08/28/22 16:55 16:55 WBC (4.4-10.8) 10^3/uL 8.18 RBC (4.36-5.78) 10^6/uL 5.15 Hgb (13.5-17.5) g/dL 16.1 Hct (40.0-50.0) % 49.2 MCV (80-95) fL 96 H MCH (27.0-33.0) pg 31.3 MCHC (32.0-36.0) % 32.7 RDW (11.8-14.1) % 13.2 Plt Count (130-400) 10^3/uL 154 MPV (8.0-11.0) fL 9.9 Immature Gran % 0.2 Neutrophils % 68.6 Lymphocytes % 22.0 Monocytes % 6.5 Eosinophils % 2.1 Basophils % 0.6 Nucleated RBC % (0.0-0.3) % 0.0 Absolute Neutrophils (1.2-6.7) 10^3/uL 5.61 Absolute Lymphocytes (1.2-3.4) 10^3/uL 1.80 Absolute Monocytes (0.1-0.8) 10^3/uL 0.53 Absolute Eosinophils (0.0-0.7) 10^3/uL 0.17 Absolute Basophils (0.0-0.2) 10^3/uL 0.05 Sodium (136-145) mmol/L 138 Potassium (3.5-5.1) mmol/L 3.8 Chloride (98-107) mmol/L 100 Carbon Dioxide (21.0-32.0) mmol/L 33.5 H Anion Gap (3-11) mmol/L 4.5 BUN (7-18) mg/dL 17 Creatinine (0.70-1.30) mg/dL 1.4 H Est GFR (CKD-EPI 2020) (mL/min/1.73m2) 53.40 Glucose (74-106) mg/dL 132 H Calcium (8.5-10.1) mg/dL 9.2 Total Bilirubin (0.2-1.0) mg/dL 0.5 AST (15-37) U/L 32 ALT (16-63) U/L 36 Alkaline Phosphatase (46-116) U/L 136 H Total Protein (6.4-8.2) g/dL 8.3 H Albumin (3.4-5.0) g/dL 3.7 Lipase (73-393) U/L 58
--- NOTE | 2022-08-28 18:35 | DI.VRAD_ITS ---
Addendum created by Jamel Rand MD on 08/28/2022 6:40:27 PM EST: Midpole right renal cyst is noted measuring 2.9 x 2 cm. No further imaging follow-up is recommended based on MIPS criteria. An anterior left renal subcentimeter cortical cyst is noted. There is a left lower pole nonobstructive renal calculus measuring 7 x 4 mm. Initial report created on 08/28/2022 6:34:57 PM EST: PROCEDURE INFORMATION: Exam: CTA Abdomen and Pelvis With Contrast Exam date and time: 08/28/2022 5:42 PM Age: 72 years old Clinical indication: Patient HX: HX of aaa, back pain TECHNIQUE: Imaging protocol: Computed tomographic angiography of the abdomen and pelvis with contrast. 3D rendering (Not supervised by radiologist): MIP and/or 3D reconstructed images were created by the technologist. COMPARISON: US [facility] DI[facility]NOSTIC 12/24/2020 8:05 AM FINDINGS: Lungs: Posterior bilateral lung base atelectasis. Pleural spaces: No pleural effusion. Heart: Normal heart size. No definable coronary artery atherosclerotic calcium. No pericardial effusion. Aorta: Distal thoracic aorta showing atherosclerotic plaque without stenosis or dissection. No aneurysmal features. Infrarenal abdominal aorta with aneurysmal dilatation. 3.9 cm AP diameter by 3.6 cm transverse diameter. This is a saccular aneurysm. Length is approximally 5.9 cm on sagittal view. True lumen with contrast opacification is approximally 19 mm transversely by 13 mm AP. There is anterior and lateral mural thrombus measuring up to 2.7 cm. There is no acute rupture. There is no contour irregularity concerning for an impending rupture. Previous ultrasound evaluation dated 12/24/2020 describing this aneurysm as 4 x 3.8 cm. This is essentially stable based on previous ultrasound. Celiac trunk and mesenteric arteries: Celiac artery origin is patent with mild stenosis and atherosclerotic change. Stenotic diameter approximally 20%. Superior mesenteric artery origin atherosclerotic disease with moderate stenosis at 50% diameter. Right renal artery is widely patent. Renal arteries: Left renal arteries widely patent. Right iliac arteries: Right common iliac artery atherosclerotic calcium and mild stenotic change. Left iliac arteries: Left common iliac artery atherosclerotic calcium and mild stenotic change. Liver: Liver with slight surface nodularity which could represent cirrhosis. Size of the liver is unremarkable. No focal intrinsic lesions. Gallbladder and bile ducts: Partially contracted gallbladder. No acute changes. Pancreas: Moderate pancreatic atrophy. No acute features. Spleen: Splenomegaly at 15 cm AP length. Adrenal glands: The adrenal glands are normal in size and contour bilaterally. Kidneys and ureters: Unremarkable. No solid mass. No hydronephrosis. Stomach and bowel: Gastric morphology is unremarkable. No edema. No gastric outlet obstruction. Small hiatal hernia. No acute features. Small bowel loops are normal in course and caliber. There is no mucosal edema or bowel wall thickening. No obstructive features. The colon contains formed fecal material. There is no bowel wall thickening. No inflammatory features. No obstruction. Appendix: No evidence of appendicitis. Intraperitoneal space: No free fluid. No free air. Lymph nodes: Unremarkable. No enlarged lymph nodes. Urinary bladder: Urinary bladder is unremarkable in appearance. No wall thickening. No intravesicular calculi. No intravesicular gas. Reproductive: Unremarkable as visualized. Bones/joints: Degenerative lumbar spine changes. Soft tissues: Unremarkable. IMPRESSION: 1. Infrarenal abdominal aortic aneurysm measuring 3.9 cm AP x 3.6 cm transversely. Saccular appearance. Length is 5.9 cm. True lumen 19 x 13 mm with mural thrombus. In comparison with prior ultrasound from 12/24/2020, aneurysm appears stable in size. No evidence of acute rupture or features of impending rupture. 2. No iliac artery aneurysmal change. 3. Moderate superior mesenteric artery origin stenosis at 50% diameter. Mild celiac artery origin stenosis. 4. Bilateral renal arteries are widely patent. 5. Mild cirrhotic liver features. 6. Splenomegaly. 7. Small hiatal hernia. 8. Pancreatic atrophy. 9. No free fluid. No free air. 10. No adenopathy. 11. Degenerative lumbar spine changes. Dictated and Authenticated by: Jamel Rand MD. Ordering:SANDOR Gutierrez MD
--- NOTE | 2022-08-28 18:38 | DI.VRAD_ITS ---
PROCEDURE INFORMATION: Exam: CT Lumbar Spine Without Contrast Exam date and time: 08/28/2022 5:42 PM Age: 72 years old Clinical indication: Other: Back pain, unspecified; Patient HX: Back pain, HX aaa TECHNIQUE: Imaging protocol: Computed tomography of the lumbar spine without contrast. COMPARISON: US [facility] DIAGNOSTIC 12/24/2020 8:05 AM FINDINGS: Bones/joints: Vertebral bodies are normal in height and alignment. No fracture. No suspicious bone lesions. T11-T12: T11-T12 disc is unremarkable. No spinal stenosis or foraminal stenosis. T12-L1: T12-L1 disc is preserved in height. No spinal stenosis or foraminal stenosis. L1-L2: L1-L2 disc is preserved in height. 2 mm broad-based disc bulge. Mild facet arthropathy. No spinal stenosis or foraminal stenosis evident. L2-L3: L2-L3 disc is preserved in height. There is a 4 mm broad-based posterior disc bulge. There is lamz-ls-axzdujne ligamentum flavum hypertrophy. There is moderate facet arthropathy. There is moderate spinal stenosis. There is bilateral moderate foraminal stenosis. L3-L4: L3-L4 degenerative disc space narrowing. Prominent broad-based posterior disc bulge. Severe spinal stenosis. Severe ligamentum flavum hypertrophy. Moderate to severe facet arthropathy. Mild bilateral foraminal stenosis. L4-L5: L4-L5 moderate degenerative disc space narrowing. Broad-based posterior disc bulge of approximally 4-5 mm. Moderate ligamentum flavum hypertrophy. Moderate to severe spinal stenosis. Moderate facet arthropathy. No significant foraminal stenosis. L5-S1: L5-S1 degenerative disc space narrowing. No significant disc bulge. No spinal stenosis. No foraminal stenosis. Vasculature: Abdominal aortic aneurysm is noted. Please see CTA abdomen pelvis for further description. No evidence of acute rupture. Soft tissues: Unremarkable. IMPRESSION: 1. Degenerative lumbar spine disease. 2. Multilevel spinal stenosis. 3. No fractures or neoplastic features. Dictated and Authenticated by: Jamel Rand MD. Ordering:SANDOR Gutierrez MD
[2022-08-28] MEDS: MORPHine 10 MG/ML VIAL 2 MG IVP (20:50)
[2022-08-28 21:32] VITALS: BP 146/86; PULSE 91; RESP 19; TEMP 36.8; O2SAT 93
== END 2022-08-28 21:30 | disposition short-term general hospital (02) ==
PROVIDERS: Emergency Provider Physician Assistant; PCP Family Medicine
DX: I71.40 Abdominal aortic aneurysm, without rupture, unspecified (principal); I51.3 Intracardiac thrombosis, not elsewhere classified; R20.2 Paresthesia of skin; J44.9 Chronic obstructive pulmonary disease, unspecified; E11.9 Type 2 diabetes mellitus without complications; I10 Essential (primary) hypertension
CPT/HCPCS: 80053; 83690; 96374; 99285; 74174; 81003; 85025; 99284; J2270; J3490

== ENCOUNTER 2023-02-03 11:10 | Outpatient (CLI) | payer MEDICARE, SELFPAY ==
--- NOTE | 2023-02-03 10:45 | DI.RAD_ITS ---
Exam(s) XR HIP LT COMPLETE AP PELVIS EXAM: XR HIP LT COMPLETE AP PELVIS CLINICAL HISTORY: L hip pain. TECHNIQUE: 2D digital imaging was performed of the left hip. Two views were obtained. AP pelvis an d lateral left hip views were obtained. COMPARISON: CR XR HIP RT COMPLETE AP PELVIS from 06/10/2020 FINDINGS: BONES: No acute fracture is present. No bony destructive lesion is seen. JOINTS: No dislocation present. There are mild degenerative changes of the left hip with joint space narrowing. The sacroiliac joints and symphysis pubis appear unremarkable. SOFT TISSUE: Normal. IMPRESSION: Mild joint space narrowing of the left hip. DATA REPOSITORY: RADIATION DOSE DELIVERED:
== END 2023-02-03 11:11 | disposition home or self-care (01) ==
LOC: DIORS 11:10
PROVIDERS: PCP Family Medicine; Referring Provider Family Medicine; Visit Provider Student in an Organized Health Care Education/Training Program
DX: M75.102 Unspecified rotator cuff tear or rupture of left shoulder, not specified as traumatic; M75.22 Bicipital tendinitis, left shoulder; M76.892 Other specified enthesopathies of left lower limb, excluding foot
CPT/HCPCS: 20610; 99213; 73502; J1040

== ENCOUNTER 2023-02-23 02:24 | Outpatient (CLI) | payer MEDICARE, SELFPAY ==
--- NOTE | 2023-02-23 07:30 | DI.MRI_ITS ---
Exam(s) MR UPPER JOINT LT WO EXAM: MR UPPER JOINT LT WO CLINICAL HISTORY: PAIN,TENDONITIS UPPER BICEPS TENDON,M75.22. TECHNIQUE: Multiplanar multisequence MRI was performed. COMPARISON: 16 December 2021 plain films FINDINGS: BONES: There is no fracture or contusion pattern. Metallic densities in humeral head create artifac t. Metallic artifacts also seen at at in the vicinity of the AC joint related to prior surgery.. JOINTS:The acromioclavicular joint shows no significant inferior spurring. Postsurgical changes. Th e glenohumeral joint shows a small amount of fluid. TENDONS: Supraspinatus: Full-thickness tear with severe retraction, to the level of the glenoid. Infraspinatus: Thickening and edema. Subscapularis: Unremarkable. Teres Minor: Unremarkable. Biceps and [place]: Unremarkable. MUSCLES: Approximately 50 percent muscle atrophy of the supraspinatus, Goutallier grade 3. Mild infr aspinatus muscle atrophy. Severe teres minor muscle atrophy. Is scabbed Saf Jose muscle no sign ificant atrophy. GLENOID LABRUM: Degenerative changes. No gross tear. SOFT TISSUES: Unremarkable. OTHER: Subacromial and subdeltoid bursae show a small amount of fluid.. IMPRESSION: Full-thickness tear with retraction of the supraspinatus tendon and approximately 50 percent muscle a trophy. Prior surgical repair. Infraspinatus tendinosis. DATA REPOSITORY:
== END 2023-02-23 02:44 ==
LOC: DI 02:24
PROVIDERS: PCP Family Medicine; Visit Provider Student in an Organized Health Care Education/Training Program
DX: M75.120 Complete rotator cuff tear or rupture of unspecified shoulder, not specified as traumatic; M62.512 Muscle wasting and atrophy, not elsewhere classified, left shoulder; M75.22 Bicipital tendinitis, left shoulder; M67.814 Other specified disorders of tendon, left shoulder
CPT/HCPCS: 73221

== ENCOUNTER 2023-03-02 08:26 | Outpatient (CLI) | payer MEDICARE, SELFPAY ==
--- NOTE | 2023-03-02 08:15 | RT.EKG_ITS ---
APPROVED REPORT Exam: Resting ECG Reason for Exam: Medication Management Patient Location: O HR:64 bpm ECG Measurements Heart Rate 64 AXIS IL 168 P 72 QRSd 83 QRS 49 QT 400 T 57 QTc 413 Conclusion Sinus rhythm...normal P axis, V-rate 50- 99 Normal Electrocardiogram
== END 2023-03-02 08:27 | disposition home or self-care (01) ==
PROVIDERS: PCP Family Medicine; Visit Provider Family Medicine
DX: Z51.81 Encounter for therapeutic drug level monitoring (principal)
CPT/HCPCS: 93005; 93010

== ENCOUNTER 2023-03-21 02:43 | Outpatient (CLI) | payer MEDICARE, SELFPAY ==
--- NOTE | 2023-03-21 08:15 | DI.CT_ITS ---
Exam(s) CT UPPER EXTREMITY LT WO EXAM: CT UPPER EXTREMITY LT WO CLINICAL HISTORY: Surgical planning,rotator cuff tear arthropathy,lt shoulder, m12.812,m75.10 TECHNIQUE: Imaging Protocol: Axial computed tomography images with coronal and sagittal reformatted images were created and reviewed. CONTRAST MATERIAL: Intravenous: Omnipaque 350 Contrast volume:structured data in ml Contrast route:I V - Oral: yes / no COMPARISON: No exams were available for comparison FINDINGS: OSSEOUS: There is evidence of previous rotator cuff surgery. There are moderate degenerative changes glenohum eral joint. Moderately diminished subacromial space. Degenerative changes including corticated bodi es noted within the AC joint. There is an element of upward subluxation of the humeral head in the o sseous glenoid by approximately 1.1 cm. This probably indicates significant rotator cuff pathology. No degenerative subarticular cysts noted in humeral head and osseous glenoid. No large osteophytes small calcifications seen in the soft tissues lateral to the greater tuberosity IMPRESSION: Previous left shoulder rotator cuff surgery. Moderate degenerative changes. Other findings as above RADIATION DOSE DELIVERED: Total DLP DATA REPOSITORY: All CT scans at this facility are submitted to the National Radiology Data Registry (NRDR) Dose Index Registry (DIR) with the [employer] ([employer]). RADIATION OPTIMIZATION: All CT scans at this facility use at least one of these dose optimization te chniques: automated exposure control; mA and/or kV adjustment per patient size (includes targeted exa ms where dose is matched to clinical indication); or iterative reconstruction.
== END 2023-03-21 03:03 ==
LOC: DI 02:43
PROVIDERS: PCP Family Medicine; Visit Provider Student in an Organized Health Care Education/Training Program
DX: Z98.890 Other specified postprocedural states; M19.012 Primary osteoarthritis, left shoulder
CPT/HCPCS: 73200

== ENCOUNTER 2023-04-05 10:10 | Outpatient (CLI) | payer MEDICARE, SELFPAY ==
--- NOTE | 2023-04-05 09:00 | DI.RAD_ITS ---
Exam(s) XR CHEST 2V PA LATERAL EXAM: XR CHEST 2V PA LATERAL CLINICAL HISTORY: PRE OP LEFT RTSA TECHNIQUE: 2D digital imaging was performed. COMPARISON: CT CT CHEST WO from 10/22/2021 FINDINGS: HEART: Normal size. Aorta: Not dilated. PULMONARY VASCULATURE: Normal. LUNGS: Clear. PLEURAL SPACE: No pleural effusion or pneumothorax. BONE:Unremarkable for age. IMPRESSION: No acute abnormality. DATA REPOSITORY: RADIATION DOSE DELIVERED:
== END 2023-04-05 10:11 | disposition home or self-care (01) ==
LOC: DIORS 10:10
PROVIDERS: PCP Family Medicine; Referring Provider Family Medicine; Visit Provider Student in an Organized Health Care Education/Training Program
DX: M75.102 Unspecified rotator cuff tear or rupture of left shoulder, not specified as traumatic; M12.812 Other specific arthropathies, not elsewhere classified, left shoulder
CPT/HCPCS: 99214; 71046

== ENCOUNTER 2023-04-21 10:19 | Outpatient (REF) | payer MEDICARE, SELFPAY ==
[2023-04-21 16:37] LABS: Abs Immature Grans 0.04 10^3/uL (0.0-0.06); Absolute Basophil Count 0.05 10^3/uL (0.0-0.2); Absolute Eosinophil Count 0.16 10^3/uL (0.0-0.7); Absolute Lymphocyte Count 1.65 10^3/uL (1.2-3.4); Absolute Monocyte Count 0.58 10^3/uL (0.1-0.8); Absolute Neutrophil Count 5.47 10^3/uL (1.2-6.7); Basophils % 0.6; HCT 48.3 % (40.0-50.0); Immature Grans % 0.5; Lymphocytes % 20.8; MCH 31.5 pg (27.0-33.0); MCHC 33.1 % (32.0-36.0); MCV 95 fL (80-95); MPV 10.6 fL (8.0-11.0); Monocytes % 7.3; Neutrophils % 68.8; Platelet Count 175 10^3/uL (130-400); RBC 5.08 10^6/uL (4.36-5.78); RDW 13.4 % (11.8-14.1); RDW-SD 47.8 fL; WBC 7.95 10^3/uL (4.4-10.8)
[2023-04-21 17:20] LABS: ALT 33 U/L (16-63); AST 34 U/L (15-37); Albumin 3.9 g/dL (3.4-5.0); Alkaline Phosphatase 93 U/L (46-116); Anion Gap 9.8 mmol/L (3-11); BUN 17 mg/dL (7-18); Bilirubin, Total 0.8 mg/dL (0.2-1.0); CO2 27.2 mmol/L (21.0-32.0); CREATININE 1.2 mg/dL (0.70-1.30); Calcium 9.6 mg/dL (8.5-10.1); Calculated LDL 94 mg/dL (<100); Chloride 102 mmol/L (98-107); Cholesterol 175 mg/dL (<200); Estimated GFR 63.85 (mL/min/1.73m2); Glucose 106 mg/dL (74-106); HDL Cholesterol 53 mg/dL (40-60); Potassium 3.8 mmol/L (3.5-5.1); Sodium 139 mmol/L (136-145); Total Protein 8.1 g/dL (6.4-8.2); Triglyceride 142 mg/dL (<150)
[2023-04-21 18:00] LABS: Hemoglobin A1C 5.5 % (<5.7)
== END 2023-04-21 10:20 | disposition home or self-care (01) ==
LOC: NCHCN 10:19
PROVIDERS: PCP Family Medicine; Visit Provider Family Medicine
DX: I10 Essential (primary) hypertension (principal); R73.03 Prediabetes; J44.9 Chronic obstructive pulmonary disease, unspecified
CPT/HCPCS: 80053; 80061; 83036; 85025

== ENCOUNTER 2023-04-28 06:00 | Day surgery (SDC) | payer MEDICARE, SELFPAY ==
[2023-04-28] VITALS (9 sets, daily range): BP systolic 116–142; BP diastolic 53–82; PULSE 70–99; RESP 13–18; TEMP 36.4–36.7; O2SAT 90–100; BMI 30.8
[2023-04-28] MEDS: Lactated Ringers 1,000 ML 30 ML IV (07:00)
--- NOTE | 2023-04-28 07:15 | W.PM.DSUDISC ---
Date of service: 04/28/23 Time of Service: 16:00 Discharge Plan Disposition Patient Disposition: Home Condition: Stable Discharge Details Attending Provider: Chung Botello Primary Care Provider: Tierney Jordan V Home Meds and New Rx's Prescriptions: New tramadol 50 mg tablet 50 mg PO Q8H PRN (Reason: severe pain) Qty: 9 0RF Continued clonazepam 1 mg Tablet 1 mg PO BID montelukast 10 mg Tablet 10 mg PO DAILY cholecalciferol (vitamin D3) [Vitamin D3] 2,000 unit Tablet 2,000 unit PO DAILY ziprasidone HCl 20 mg capsule 20 mg PO BID Rx Instructions: give with food (meal/snack) aspirin [Adult Aspirin Regimen] 81 mg tablet,delayed release (DR/EC) 81 mg PO DAILY fluticasone propionate [Flonase] 16 GM spray,suspension 50 mcg NS BID PRN Patient Comments: +2 weeks 2 sprays prn betamethasone valerate 15 GM ointment 15 gm Topical Q12H PRN pantoprazole [Protonix] 40 MG tablet,delayed release (DR/EC) 40 mg PO DAILY clobetasol 50 ML solution 50 ml Topical Q12H PRN celecoxib 200 mg capsule See Rx Instructions .ROUTE .COMPLEX Qty: 30 2RF Dose Instruction: TAKE ONE CAPSULE BY MOUTH EVERY DAY Rx Instructions: TAKE ONE CAPSULE BY MOUTH EVERY DAY silver sulfadiazine 1 % cream 1 applic topical DAILY Rx Instructions: apply a 1.5 mm thickness sildenafil 50 mg tablet 50 mg PO DAILY PRN Rx Instructions: administer 30 minutes to 4 hours before activity tramadol 50 mg tablet 50 mg PO BID PRN triamcinolone acetonide 80 GM cream 0 gm Topical PRN PRN citalopram 20 MG tablet 30 mg PO DAILY hydrochlorothiazide 12.5 MG capsule 12.5 mg PO DAILY nitroglycerin 0.4 mg Tablet, Sublingual 0.4 mg Sublingual PRN PRN fluticasone propionate [Flovent HFA] 220 mcg/actuation HFA aerosol inhaler 2 inh INHALATION BID Patient Comments: INHALE TWO PUFFS BY MOUTH TWICE A DAY Discharge Instructions Additional Instructions: Surgery: Left reverse total shoulder arthroplasty (constrained liner) with biceps tenodesis Activity: Do not lift anything heavier than a coffee. You may use your hand gently/ lightly for activities of daily living. You should use the sling for support whenever you are out of the house for about 1 month. At home it is best to remove the sling and rest the arm on a pillow at your side or support the operative side with your other hand. A physical therapy prescription will be sent electronically to start in about 3 weeks. STANDARD Reverse TSA Protocol: Immediate active range of motion okay Prescriptions: Resume home 81 mg Aspirin daily starting tomorrow Resume home celecoxib/ Celebrex 200 mg daily as needed for pain Tramadol 50 mg take 1 every 6-8 hours as needed for severe pain Dressings: Leave dressing in place until follow-up. Keep clean and dry at all times. No showers please. Follow-up: 10-[address] Botello You may take off the leg compression stockings this evening at home. You may also leave them on a few days longer if you have a history of leg swelling or edema. Please call the office during business hours with any questions or concerns. Let us know right away if you develop any redness, drainage, fevers, chest pain, or trouble breathing. Do not drink alcohol or drive for at least 24 hours after anesthesia. Equipment/Supplies: Sling Discharge Orders Discharge Orders: Discharge Order (Routine); Ordered 04/28/23 Ordered By: Chung Botello DS: Diagnosis Discharge Diagnosis (1) Rotator cuff tear arthropathy of left shoulder: Status: Acute
--- NOTE | 2023-04-28 07:29 | W.ANESPRE ---
General Info Date of Service Date Performed: 04/28/23 Height: 5 ft 6 in Weight: 86.6 kg Body Mass Index (BMI): 30.8 Surgical Procedure: Operation Date: 04/28/23 07:40 Proposed Procedure Side Surgeon p Shoulder Reverse Total Arthroplasty, Biceps Tenodesis, any other indicated surgery Left Chung Botello MD s Shoulder Hardware Removal Left Chung Botello MD Actual Procedure Side Surgeon p Shoulder Reverse Total Arthroplasty, Biceps Tenodesis, any other indicated surgery Left Chung Botello MD s Shoulder Hardware Removal Left Chung Botello MD Pre-Op Diagnosis Post-Op Diagnosis Rotator cuff tear arthropathy of left shoulder Meds Allergies and Home Medications Allergies Allergy/AdvReac Type Severity Reaction Status Date / Time atorvastatin Allergy Severe Verified 04/28/23 06:15 lisinopril Allergy Severe Verified 04/28/23 06:15 NSAIDS (Non-Steroidal Allergy Severe tongue Verified 04/28/23 06:15 Anti-Inflamma swells acetaminophen AdvReac Intermediate MONITORING Verified 04/28/23 06:15 LIVER PANELS Home Medication Medication Instructions Recorded citalopram 20 mg tablet 30 mg PO DAILY 11/30/12 triamcinolone acetonide 0.1 % 0 gm topical PRN PRN 11/30/12 topical cream Flonase 50 mcg/actuation nasal 50 mcg NS BID PRN 10/02/13 spray,suspension (fluticasone propionate) betamethasone valerate 0.1 % 15 gm topical Q12H PRN 06/06/14 topical ointment clobetasol 0.05 % scalp solution 50 ml topical Q12H PRN 06/06/14 pantoprazole 40 mg tablet,delayed 40 mg PO DAILY 06/06/14 release (Protonix) hydrochlorothiazide 12.5 mg capsule 12.5 mg PO DAILY 02/09/17 nitroglycerin 0.4 mg sublingual 0.4 mg sublingual PRN PRN 12/29/18 tablet cholecalciferol (vitamin D3) 50 2,000 unit PO DAILY 09/27/19 mcg (2,000 unit) tablet (Vitamin D3) clonazepam 1 mg tablet 1 mg PO BID 09/27/19 montelukast 10 mg tablet 10 mg PO DAILY 09/27/19 ziprasidone HCl 20 mg capsule 20 mg PO BID 06/10/20 celecoxib 200 mg capsule See Rx Instructions .Route 06/02/22 .COMPLEX #30 caps fluticasone propionate 220 2 inh inhalation BID 08/28/22 mcg/actuation HFA aerosol inhaler (Flovent HFA) sildenafil 50 mg tablet 50 mg PO DAILY PRN 11/04/22 silver sulfadiazine 1 % topical 1 applic topical DAILY 11/04/22 cream tramadol 50 mg tablet 50 mg PO BID PRN 11/04/22 aspirin 81 mg tablet,delayed 81 mg PO DAILY 03/23/23 release (Adult Aspirin Regimen) Current Visit Medications: Current Medications Generic Name Dose Route Start Last Admin Trade Name Freq PRN Reason Stop Dose Admin Tranexamic Acid 1,000 mg/ 60 mls @ 360 mls/hr 04/28/23 06:00 Sodium Chloride IVPB 04/28/23 18:00 PREOP TAMARA Ringer's Solution 1,000 mls @ 30 mls/hr 04/28/23 06:00 IV 05/27/23 23:59 INFUSION TAMARA Cefazolin Sodium/Dextrose 2 gm in 50 mls @ 100 mls/hr 04/28/23 06:00 Ancef Duplex IVPB 05/27/23 23:59 PREOP TAMARA Cefazolin Sodium/Dextrose 1 gm in 50 mls @ 100 mls/hr 04/28/23 11:30 Ancef Duplex IVPB 04/28/23 11:59 ONCE ONE IV Miscellaneous Supplies 1 each 04/28/23 06:00 Iv Access IV 05/27/23 23:59 DIRECTED TAMARA Lactobacillus Acidophilus/Casei 1 cap 04/28/23 12:30 L. Acidophilus, Casei, Rhamnosus Cap PO 05/28/23 12:29 DAILY TAMARA Sodium Chloride 0 ml 04/28/23 06:00 Normal Saline Flush 10 Ml Syr IV 05/27/23 23:59 PRN PRN Sodium Chloride 0 ml 04/28/23 06:00 Normal Saline 10 Ml Vial IJ 05/27/23 23:59 DIRECTED PRN Sterile Water 0 ml 04/28/23 06:00 Water,Injection,Sterile 10 Ml Vial IJ 05/27/23 23:59 DIRECTED PRN Tramadol HCl 50 mg 04/28/23 07:24 Tramadol 50 Mg Tab PO 05/28/23 07:23 Q6H PRN PRN PFSH Active Problems Active Problems: Problem Status Onset Code Tear of left rotator cuff 10/28/13 M75.102 DJD AC joint, left 10/28/13 Tubulovillous adenoma of colon 06/19/17 D12.6 Erectile dysfunction N52.9 Urinary frequency R35.0 Knee pain, right M25.561 Hip pain, right M25.551 Primary osteoarthritis of right knee M17.11 Primary osteoarthritis of left knee M17.12 Trochanteric bursitis, right hip M70.61 Internal derangement of left knee M23.92 Tear of medial meniscus of left knee S83.242A S/P left knee arthroscopy 04/21/21 Z98.890 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 M19.211 Pain of right calf M79.661 Superficial thrombophlebitis of right leg I80.01 Superficial thrombophlebitis of right leg I80.01 Tendonitis of upper biceps tendon of left shoulder M75.22 Lumbar disc herniation M51.26 Palliative care patient Z51.5 Status post ORIF of fracture of ankle Z98.890, Z87.81 Tendonitis involving left hip abductors M76.892 Rotator cuff tear arthropathy of left shoulder M75.102, M12.812 Medical History Medical History AAA (abdominal aortic aneurysm) 12/24/20: Max Diameter 4cm Anxiety Bipolar disorder Cervical radiculopathy Cervicalgia Chest pain NST 04/2018 and tx with cholesterol meds has resolved Chronic headaches Colon polyps COPD (chronic obstructive pulmonary disease) Depression with anxiety Dermatitis, seborrheic Diabetes mellitus Diverticulitis Dyspepsia Dyspnea on exertion Ecchymoses, spontaneous Elevated LFTs Fatty liver GERD (gastroesophageal reflux disease) Hearing loss HTN (hypertension) Hypercholesterolemia Hyperlipidemia Left shoulder pain Nephrolithiasis Papule Psoriasis Rash Rectal bleeding Renal insufficiency Right knee pain Right shoulder pain Sciatica Shortness of breath Urinary frequency Surgical History Surgical History (Updated 04/28/23 @ 06:14 by Ishmael Ramírez) Colonoscopy - MAC (06/19/17) H/O cataract extraction Hx of tonsillectomy S/P hernia repair Tobacco Smoking/Tobacco Use Status: Former Tobacco Use Alcohol Alcohol Intake: never Substance Use Substance use: Never Substance use type: does not use Vital Signs and Lab Results Vital Signs Most Recent Vital Signs in EMR: Most Recent Vital Signs Temp Pulse Resp BP Pulse Ox 36.4 C L 99 H 17 132/75 93 04/28/23 06:22 04/28/23 06:22 04/28/23 06:22 04/28/23 06:22 04/28/23 06:22 Lab Results Blood Type / Crossmatch: No Data to Display Complete Blood Count: White Blood Count 7.95 10^3/uL (4.4-10.8) 04/21/23 10:30 Red Blood Count 5.08 10^6/uL (4.36-5.78) 04/21/23 10:30 Hemoglobin 16.0 g/dL (13.5-17.5) 04/21/23 10:30 Hematocrit 48.3 % (40.0-50.0) 04/21/23 10:30 Platelet Count 175 10^3/uL (130-400) 04/21/23 10:30 Complete Metabolic Panel: Sodium 139 mmol/L (136-145) 04/21/23 10:30 Potassium 3.8 mmol/L (3.5-5.1) 04/21/23 10:30 Chloride 102 mmol/L (98-107) 04/21/23 10:30 Carbon Dioxide 27.2 mmol/L (21.0-32.0) 04/21/23 10:30 BUN 17 mg/dL (7-18) 04/21/23 10:30 Creatinine 1.2 mg/dL (0.70-1.30) 04/21/23 10:30 Est GFR (CKD-EPI 2020) 63.85 (mL/min/1.73m2) 04/21/23 10:30 Calcium 9.6 mg/dL (8.5-10.1) 04/21/23 10:30 Albumin 3.9 g/dL (3.4-5.0) 04/21/23 10:30 Glucose 106 mg/dL (74-106) 04/21/23 10:30 Hemoglobin A1c 5.5 % (<5.7) 04/21/23 10:30 Liver Function Panel: Alanine Aminotransferase (ALT/SGPT) 33 U/L (16-63) 04/21/23 10:30 Aspartate Amino Transf (AST/SGOT) 34 U/L (15-37) 04/21/23 10:30 Coagulation Panel: No Data to Display Cardiac Panel: No Data to Display Arterial Blood Gas: No Data to Display Venous Blood Gas: No Data to Display Pancreas Panel: No Data to Display Thyroid Panel: No Data to Display Infectious Disease: No Data to Display Blood Cultures: No Data to Display Toxicology Panel: No Data to Display Imaging and Studies Imaging and Studies Study information below may be from another EMR and interpreted by another provider. Please see original notes in EMR for more complete details. EKG Summary: EKG PATIENT NAME: Adonis Bernard #: [id number] ORDERING PROVIDER: Tierney Jordan M.D. PRIMARY CARE PROVIDER:TIERNEY JORDAN MD DATE/TIME OF SERVICE: 03/02/23733 : 1950PERFORMING LOCATION: [facility] APPROVED REPORT Exam: Resting ECG Reason for Exam: Medication Management Patient Location: O HR:64 bpm ECG Measurements Heart Rate 64 AXIS AL 168 P 72 QRSd 83 QRS 49 QT 400 T57 QTc 413 Conclusion Sinus rhythm...normal P axis, V-rate 50- 99 Normal Electrocardiogram <Electronically signed by NATAN CADET MD in OV> E-Sign Date: 03/02/23 E-Sign Time: 0855 Stress Test Summary: Impressions: - Abnormal study after pharmacologic stress. - Rec cardiac catheterization on basis of perfusion imaging. Summary: 1. Myocardial perfusion imaging: There is a moderate sized, moderately intense, predominantly reversible defect involving the inferior wall(s). This suggests moderate ischemia in the distribution of the right coronary artery. Overall ischemia: moderate. 2. No left ventricular regional motion abnormality. 04/16/18 Followed by normal cardiac cath 04/2018, resolution of chest pain following starting statin Echocardiogram Summary: Summary: 1. Left ventricle: The cavity size was normal. There was mild focal basal hypertrophy of the septum. Systolic function was normal. The estimated ejection fraction was 60-65%. Wall motion was normal; there were no regional wall motion abnormalities. 2. Right ventricle: The cavity size was normal. Wall thickness was normal. Systolic function was normal. 05/16/16 Anesthesia Assessment and Plan Anesthesia History Personal History: No History of Anesthesia Complications Family History: No Family History of Anesthesia Complications Exercise Tolerance Exercise Tolerance: Metabolic Equivalents>4 Pertinent Negatives Pertinent Negatives: No Symptoms of GERD and No History of CVA/TIA Cardiac & Pulmonary Exam Cardiac Exam: Normal S1/S2 Heart Sounds Pulmonary Exam: Wheezing Present Implantable Cardiac Device Does patient have a Pacemaker or an ICD?: No Airway Exam Known Difficult Airway: No Mallampati Class: 2 Mouth Opening: Normal (> 3cm) Thyromental Distance: Greater than 3 cm Neck Range of Motion: Limited ROM Neck Circumference: Normal Teeth Condition: Removable Dentures/Plates Upper, Removable Dentures/Plates Lower and Edentulous ASA Classification ASA Score: ASA 3 Emergency Case?: No NPO Status NPO Status: NPO Clears >2 hours, Solids >8 hours Anesthesia Plan Resuscitation Status: Full Code Anesthesia Technique: General Anesthesia Airway Planned: Endotracheal Tube Monitors Used: Standard Monitors
[2023-04-28] MEDS: ceFAZolin 2 GM/50 ML BAG IVPB (08:04)
[2023-04-28] MEDS: Bupivacaine 0.25% Pres-Free W/EPI 30 ML VIAL IJ (08:41)
[2023-04-28] MEDS: ceFAZolin 1 GM/50 ML BAG IVPB (11:30)
[2023-04-28] MEDS: HYDROmorphone 2 MG/ML SYR IVP (11:50)
--- NOTE | 2023-04-28 12:04 | DI.RAD_ITS ---
Exam(s) XR SHOULDER LT COMPLETE 2+V EXAM: XR SHOULDER LT COMPLETE 2+V CLINICAL HISTORY: Shoulder arthritis. TECHNIQUE: 2D digital imaging was performed of the left shoulder. Two images were obtained. Grashe y and Y views were obtained. COMPARISON: CR XR SHOULDER LT COMPLETE 2+V from 12/16/2021 CR XR CHEST 2V PA LATERAL from 04/05/2023 FINDINGS: BONES: No acute fracture is present. No bony destructive lesion is seen. JOINTS: The patient is now status post left total reverse shoulder replacement. The orthopedic hardw are appears in good position. Postsurgical changes are seen in the soft tissues. SOFT TISSUE: Postsurgical changes are present. IMPRESSION: Status post left total reverse shoulder replacement. DATA REPOSITORY: RADIATION DOSE DELIVERED:
[2023-04-28] MEDS: traMADol 50 MG TAB PO (12:44)
--- NOTE | 2023-04-28 14:43 | ROE_ITS ---
Date of service: 04/28/23 Time of Service: 07:30 Operative Note Operative Note DATE OF PROCEDURE: 04/28/23 PRE-OP DIAGNOSIS: Left: 1. Rotator cuff arthropathy 2. Long head of the biceps tendinopathy 3. Retained rotator cuff repair hardware POST-OP DIAGNOSIS: same PROCEDURE: Left: 1. Reverse total shoulder arthroplasty, CPT # 25847 2. Open biceps tenodesis, CPT # 11833 3. Removal of hardware, CPT #14484 The store administrative assistant was medically required as this procedure involves retraction, protection of neurovascular structures, and manipulation of multiple instruments and implants at the same time, which cannot be done without a skilled store administrative assistant. SURGEON: Chung Botello ENVIRONMENTAL CONSERVATION PROFESSOR: Ruby Fox ANESTHESIA TYPE: Local By Surgeon and General LMA/ETT Refer to Anesthesia Record ESTIMATED BLOOD LOSS: 200 COMPLICATIONS: None Patient was transported to: PACU Patient's condition: stable Implants: [employer] modular glenoid system baseplate 24 mm, 10 degree full wedge augment [employer] modular glenoid system central post 25 mm [employer] modular glenoid system peripheral locking screws 36 mm inferior, 36 mm superior, 16 mm posterior, 20 mm anterior [employer] modular glenoid system glenosphere 42 +4 mm lateralized [employer] humeral stem 135 degrees size 9 [employer] suture cup size 42 posterior offset [employer] humeral insert size 42 +3 mm constrained Indications: Please see complete medical record for details. Findings: Significant long head biceps tenosynovitis, deficient supraspinatus and infraspinatus with obvious chronic tearing. No signs of infection, moderate?high grade glenohumeral cartilage loss. Procedure Description: In the operating room, general anesthesia was induced. The patient was positioned beachchair on the operating room table. All bony prominences were well-padded. Preoperative antibiotics were administered. The shoulder was prepped and draped in the usual sterile fashion for shoulder arthroplasty. The correct patient, procedure, and side of the procedure were all verified prior to incision. The deltopectoral approach was preinjected with local anesthetic containing epinephrine and taken to the anterior shoulder. Care was taken to bluntly dissect the interval between the deltoid and pectoralis major muscles and to identify the cephalic vein within its fat stripe. The the vein was mobilized laterally. Subdeltoid space and conjoined tendon were freed of adhesions. The long head of the biceps tendon was identified just lateral to the lesser tubero sity. The uppermost margin of the pectoralis major tendon was released from the proximal humerus. The long head of the biceps tendon was tenodesed in situ using SutureTape in a [id number] fashion securing it superior margin the pectoralis major tendon. The biceps tendon was amputated and followed proximally to identify the rotator interval. A subscapularis peel was performed taking care to release the entire tendon in a full-thickness fashion from superior to inferior and lateral to medial while bringing the arm gradually into external rotation. Care was taken to avoid the axillary nerve by only working on the bone inferiorly and medially. The subscapularis retracted and traction used confirm appropriate mobilization of the subscapularis tendon after gentle blunt dissection was used to free up the space anterior and posterior to it. It was then tenotomized through the mid tendon due to degenerative quality and low probability of reaching the lateralize distalized replacement. The supraspinatus and infraspinatus were largely deficient, rongeur used to debride the greater tuberosity of minimal soft tissue remnant. None of the prior retained anchors were exposed or proud. Appropriate coagulation was achieved especially interiorly. The anatomic neck was cut using an oscillating saw with the humeral head bone brought back table in case there was a need for future bon e grafting. The humeral neck cut had to be done in pieces given the metallic anchors at about the trajectory of the cut, pieces of bone from the humeral head removed, separately the medial row anchors were removed. Later on the lateral row anchors were removed after preparing for the suture cup. All 4 of these anchors with bone attached and suture material were divided into 2 sample sent to the lab for cultures to rule out indolent Propionibacterium infection. Reamers were started appropriately posterior to the bicipital groove taking care to maintain in line approach with the humeral canal. Sequential reaming was done from size 5 up to size 8. Next, the broaches were sequentially used to open the proximal humerus starting with a size 5 and going up to size 9 and sunk to the appropriate depth while maintaining approximately 20 degrees retroversion. There was good metaphyseal fit and rotational control of the proximal humerus with this size. The stem was slightly proud but accommodated the slightly oversized suture cup and glenosphere construct as planned with minimal bone removed and any bone removed devoid of soft tissue attachments. The broach was left in humeral canal. Attention was then turned to the glenoid and retractors were placed and a circumferential release performed using the long head of the biceps remnant to remove soft tissue about the glenoid rim. Care was taken inferiorly to work on bone only between 5 and 7:00 o'clock and bluntly elevate tissues inferiorly. The VIP guide was placed on the glenoid and used to confirm placement and trajectory of the central guidepin. The guidepin was inserted and advanced just through the far cortex ensuring adequate central fixation length. Depth gauge was used to confirm length. The glenosphere sizer was used to confirm positioning and glenosphere size. The eccentric reamer was then used to appropriately prepare the glenoid for the baseplate. The drill for the post done and guidewire removed. The baseplate was impacted and fully compressed onto the glenoid surface. The locking guide was then used to drill and place appropriately lengthed inferior, superior, anterior, and posterior screws. The [id number] reamer was used to confirm adequate peripheral reaming. The glenosphere was applied with the marine plumber and then impacted to engage the Lopez taper. It was then locked with appropriate countersinking of the setscrew. The glenosphere was inspected and found to have good fit, appropriate positioning, and no soft tissue or bony impingement. Attention was then turned back to the proximal humerus, which was delivered from the wound and maintained in external rotation. The offset guide was used to ream for the suture cup. The suture cup reaming was done slowly to accommodate removal of the remaining metallic anchors as above. One of the anchors was encountered. The other was later found deeper in the bone posteriorly and removed separately. The humeral trial cup was connected. Trialing was commenced with +3 mm liner. The shoulder was reduced and taken through range of motion. This construct had remarkably good stability and appropriate tension on the deltoid and conjoined tension. The trial components were removed from the proximal humerus. The wound was copiously irrigated with normal saline. The the proximal humeral stem and suture cup were assembled and brought over the proximal humerus. A small amount of vancomycin powder was distributed in the proximal humerus. The humeral component and suture cup were impacted into place. The final liner was impacted, but prior to reduction it was noted that the suture cup had slight micromotion at the modular junction with the stem. The liner was removed and disengaged with a rongeur. The screw was able to be tightened again, must have loosened during impaction, and the suture cup had excellent rigid fixation to the stem. Stem, calcar, and proximal humerus were all intact as well. A final liner was then impacted again without issue, +3 mm with constrained chosen due to lack of subscapularis and rotator cuff soft tissue. The shoulder was reduced and range of motion, stability, and tension confirmed to be appropriate. The shoulder was copiously irrigated with Betadine and normal saline. Vancomycin powder was distributed deeply about the shoulder and through subcutaneous tissues. The deltopectoral interval was well approximated and deep tissue closed with a single simple 2-0 Monocryl stitch. Subcutaneous tissue was irrigated then closed using 2-0 Monocryl in a buried interrupted fashion. Skin was closed using 3-0 Monocryl in a buried subcuticular fashion. Skin glue was applied to the incision. A silver impregnated bandage was placed over the incision. The extremity was placed into a shoulder immobilizer. The patient awoke from anesthesia without complication and was taken to the recovery room in stable condition.
--- NOTE | 2023-04-28 14:45 | W.ANESPOSTOP ---
Postoperative Evaluation Date, Time and Location Date Performed: 04/28/23 Time Performed: 14:45 Patient Location: Day Surgery Unit Vital Signs Most Recent Imported Vital Signs: Most Recent Vital Signs Temp Pulse Resp BP Pulse Ox 36.5 C 86 16 130/82 94 04/28/23 13:33 04/28/23 13:33 04/28/23 13:33 04/28/23 13:33 04/28/23 13:33 Pain Score Most Recent Pain Score: Most Recent Pain Score Pain Level 4 04/28/23 13:33 Assessment Mental Status: Awake (Alert & Oriented to Patient Baseline) Airway and Respiratory Function: Patent airway with normal (patient baseline) respiratory exam Cardiovascular Function: Hemodynamically Stable Hydration Status: Adequately Hydrated Nausea & Vomiting: No Nausea or Vomiting Pain: Pain is tolerable per patient Peripheral Nerve Block: Patient did not receive a nerve block Postoperative Comments:: Concern related to patient respiratory status. I asked for him to be provided an IS and for DSU RN to work with the patient. Last I checked in SPO2 greatly improved and patient doing well.
== END 2023-04-28 16:05 | disposition home or self-care (01) ==
PROVIDERS: PCP Family Medicine; Visit Provider Student in an Organized Health Care Education/Training Program
PROC: (CPT 23472; principal; 2023-04-28 07:30)
PROC: (CPT 20680; 2023-04-28 07:30)
DX: M75.102 Unspecified rotator cuff tear or rupture of left shoulder, not specified as traumatic (principal); M75.22 Bicipital tendinitis, left shoulder; Z47.2 Encounter for removal of internal fixation device
CPT/HCPCS: 20680; 23472; C1776; 73030; 87070; 87075; 87205; J0131; J0690; J1100; J1170; J2371; J2405; J2704; J3010

== ENCOUNTER 2023-05-10 11:44 | Outpatient (CLI) | payer MEDICARE, SELFPAY ==
--- NOTE | 2023-05-10 11:00 | DI.RAD_ITS ---
Exam(s) XR SHOULDER LT COMPLETE 2+V EXAM: XR SHOULDER LT COMPLETE 2+V CLINICAL HISTORY: LEFT SHOULDER F/U. TECHNIQUE: 2D digital imaging was performed. COMPARISON: CR XR SHOULDER LT COMPLETE 2+V from 04/28/2023 FINDINGS: Two views Stable position alignment the components of the reverse prosthesis. No fracture or loosening evident . IMPRESSION: Stable satisfactory appearance. DATA REPOSITORY: RADIATION DOSE DELIVERED:
== END 2023-05-10 11:45 | disposition home or self-care (01) ==
LOC: DIORS 11:44
PROVIDERS: PCP Family Medicine; Referring Provider Family Medicine; Visit Provider Student in an Organized Health Care Education/Training Program
DX: Z47.1 Aftercare following joint replacement surgery; Z96.612 Presence of left artificial shoulder joint; M12.812 Other specific arthropathies, not elsewhere classified, left shoulder
CPT/HCPCS: 73030

== ENCOUNTER → 2023-05-31 02:37 | Outpatient (CLI) | payer MEDICARE, SELFPAY ==
--- NOTE | 2023-05-31 | DI.CT_ITS ---
Exam(s) CT CHEST WO EXAM: CT CHEST WO CLINICAL HISTORY: PRE OP Z01.[address] SCAN R91.8 TECHNIQUE: Imaging Protocol: Axial computed tomography images with coronal and sagittal reformatted images were created and reviewed CONTRAST MATERIAL: Intravenous: Omnipaque 350 Contrast volume:structured data ml. COMPARISON: CT CT CHEST WO from 10/22/2021 FINDINGS: Pulmonary parenchyma: No consolidation. No dominant measurable mass. Minimal scarring in the lingula . No infiltrate. Mild emphysematous changes. No significant fibrotic changes. Tracheobronchial tree: No bronchiectasis or mucous plugging. Mediastinum and Patricia: No dominant adenopathy or fluid collection. Pleura: No effusion. No pneumothorax. Heart: The heart is not dilated. No coronary artery calcifications are seen. Aorta: Thoracic aorta non-dilated. Mild atherosclerotic changes. Upper abdomen: Unremarkable. Bones: Milddegenerative changes in the spine. Soft tissues: Unremarkable. IMPRESSION: Minimal scarring in the inferior medial lingula. No evidence of infiltrate or mass. No suspicious p ulmonary nodules. RADIATION DOSE DELIVERED: 643.54mGy.cm Total DLP DATA REPOSITORY: All CT scans at this facility are submitted to the National Radiology Data Registry (NRDR) Dose Index Registry (DIR) with the [employer] ([employer]). RADIATION OPTIMIZATION: All CT scans at this facility use at least one of these dose optimization te chniques: automated exposure control; mA and/or kV adjustment per patient size (includes targeted exa ms where dose is matched to clinical indication); or iterative reconstruction.
== END ==
PROVIDERS: PCP Family Medicine; Visit Provider Family Medicine
DX: Z01.818 Encounter for other preprocedural examination (principal); R91.8 Other nonspecific abnormal finding of lung field
CPT/HCPCS: 71250

== ENCOUNTER → 2023-07-12 07:50 | Outpatient (BNVA) | payer MEDICARE, SELFPAY | PROVIDERS: PCP Family Medicine; Referring Provider Family Medicine; Visit Provider Student in an Organized Health Care Education/Training Program | DX: Z47.1 Aftercare following joint replacement surgery (principal); Z96.612 Presence of left artificial shoulder joint ==

== ENCOUNTER 2023-08-16 14:33 | Outpatient (CLI) | payer MEDICARE, SELFPAY ==
--- NOTE | 2023-08-16 14:15 | DI.RAD_ITS ---
Exam(s) XR SHOULDER LT COMPLETE 2+V EXAM: XR SHOULDER LT COMPLETE 2+V CLINICAL HISTORY: LEFT SHOULDER PAIN. TECHNIQUE: 2D digital imaging was performed. Three images were obtained. Axillary, Grashey and Y vi ews were obtained. COMPARISON: CR XR SHOULDER LT COMPLETE 2+V from 05/10/2023 FINDINGS: BONES: There are stable post operative changes of a left total reverse shoulder replacement present. No fracture or dislocation. JOINTS: The orthopedic hardware is in good position. No evidence of hardware loosening. Degenerativ e changes are seen at the acromioclavicular joint. SOFT TISSUE: The visualized lungs are clear. IMPRESSION: Stable postoperative changes. DATA REPOSITORY: RADIATION DOSE DELIVERED:
== END 2023-08-16 14:34 | disposition home or self-care (01) ==
LOC: DIORS 14:33
PROVIDERS: PCP Family Medicine; Referring Provider Family Medicine; Visit Provider Student in an Organized Health Care Education/Training Program
DX: Z96.612 Presence of left artificial shoulder joint (principal); Z47.1 Aftercare following joint replacement surgery; S42.122D Displaced fracture of acromial process, left shoulder, subsequent encounter for fracture with routine healing; X58.XXXD Exposure to other specified factors, subsequent encounter
CPT/HCPCS: 99213; 73030

== ENCOUNTER 2023-09-13 14:30 | Outpatient (CLI) | payer MEDICARE, SELFPAY ==
--- NOTE | 2023-09-13 08:25 | DI.RAD_ITS ---
Exam(s) XR SHOULDER LT COMPLETE 2+V EXAM: XR SHOULDER LT COMPLETE 2+V CLINICAL HISTORY: F/U LEFT RTSA. TECHNIQUE: 2D digital imaging was performed. COMPARISON: CR XR SHOULDER LT COMPLETE 2+V from 08/16/2023 FINDINGS: 3 views Stable position alignment of the components of the reverse prosthesis. No fracture or loosening evid ent IMPRESSION: Stable satisfactory appearance. DATA REPOSITORY: RADIATION DOSE DELIVERED:
== END 2023-09-13 14:31 | disposition home or self-care (01) ==
LOC: DIORS 14:31
PROVIDERS: PCP Family Medicine; Referring Provider Family Medicine; Visit Provider Student in an Organized Health Care Education/Training Program
DX: Z96.612 Presence of left artificial shoulder joint (principal); S42.122D Displaced fracture of acromial process, left shoulder, subsequent encounter for fracture with routine healing; X58.XXXD Exposure to other specified factors, subsequent encounter
CPT/HCPCS: 99213; 73030

== ENCOUNTER 2023-10-18 08:45 | Outpatient (CLI) | payer MEDICARE, SELFPAY ==
--- NOTE | 2023-10-18 08:15 | DI.RAD_ITS ---
Exam(s) XR SHOULDER LT COMPLETE 2+V EXAM: XR SHOULDER LT COMPLETE 2+V CLINICAL HISTORY: F/U LEFT RTSA. TECHNIQUE: 2D digital imaging was performed. Three images were obtained. Grashey and Y views were o btained. COMPARISON: CR XR SHOULDER LT COMPLETE 2+V from 09/13/2023 FINDINGS: BONES: There are stable post operative changes of a left total reverse shoulder replacement present. No fracture or dislocation. JOINTS: The orthopedic hardware is in good position. No evidence of hardware loosening. Degenerativ e changes are seen at the acromioclavicular joint. SOFT TISSUE: The visualized lungs are clear. IMPRESSION: Stable postoperative changes. DATA REPOSITORY: RADIATION DOSE DELIVERED:
== END 2023-10-18 08:46 | disposition home or self-care (01) ==
LOC: DIORS 08:46
PROVIDERS: PCP Family Medicine; Referring Provider Family Medicine; Visit Provider Student in an Organized Health Care Education/Training Program
DX: S42.122D Displaced fracture of acromial process, left shoulder, subsequent encounter for fracture with routine healing; X58.XXXD Exposure to other specified factors, subsequent encounter; Z96.612 Presence of left artificial shoulder joint
CPT/HCPCS: 99213; 73030

== ENCOUNTER → 2023-12-07 14:27 | Outpatient (BNVA) | payer MEDICARE, SELFPAY | PROVIDERS: PCP Family Medicine; Referring Provider Family Medicine; Visit Provider Physical Therapy Assistant | DX: Z12.11 Encounter for screening for malignant neoplasm of colon (principal); Z86.010 Personal history of colon polyps ==

== ENCOUNTER 2023-12-11 10:49 | Day surgery (SDC) | payer MEDICARE, SELFPAY ==
--- NOTE | 2023-12-10 13:08 | PDOC.DSDIS_ITS ---
Date of service: 12/11/23 Time of Service: 15:21 Discharge Plan Disposition Patient Disposition: Home Condition: Good Discharge Details Reason For Visit: screening colonoscopy Attending Provider: Sushil Kidd Primary Care Provider: Tierney Jordan V Home Meds and New Rx's Prescriptions: Continued clonazepam 1 mg Tablet 1 mg PO BID montelukast 10 mg Tablet 10 mg PO DAILY cholecalciferol (vitamin D3) [Vitamin D3] 2,000 unit Tablet 2,000 unit PO DAILY ziprasidone HCl 20 mg capsule 20 mg PO BID Rx Instructions: give with food (meal/snack) aspirin [Adult Aspirin Regimen] 81 mg tablet,delayed release (DR/EC) 81 mg PO DAILY fluticasone propionate [Flonase] 16 GM spray,suspension 50 mcg NS BID PRN Patient Comments: +2 weeks 2 sprays prn betamethasone valerate 15 GM ointment 15 gm Topical Q12H PRN pantoprazole [Protonix] 40 MG tablet,delayed release (DR/EC) 40 mg PO DAILY clobetasol 50 ML solution 50 ml Topical Q12H PRN silver sulfadiazine 1 % cream 1 applic topical DAILY Rx Instructions: apply a 1.5 mm thickness sildenafil 50 mg tablet 50 mg PO DAILY PRN Rx Instructions: administer 30 minutes to 4 hours before activity triamcinolone acetonide 80 GM cream 0 gm Topical PRN PRN citalopram 20 MG tablet 30 mg PO DAILY hydrochlorothiazide 12.5 MG capsule 12.5 mg PO DAILY nitroglycerin 0.4 mg Tablet, Sublingual 0.4 mg Sublingual PRN PRN fluticasone propionate [Flovent HFA] 220 mcg/actuation HFA aerosol inhaler 2 inh INHALATION BID Patient Comments: INHALE TWO PUFFS BY MOUTH TWICE A DAY Discontinued polyethylene glycol 3350 17 gram/dose powder 17 g PO ONCE Qty: 238 0RF Rx Instructions: Take per colonoscopy instructions provided by ordering providers office bisacodyl [Dulcolax (bisacodyl)] 5 mg tablet,delayed release (DR/EC) 5 mg PO ONCE Qty: 4 0RF Rx Instructions: Take per colonoscopy instructions provided by ordering providers office No Action celecoxib 200 mg capsule 200 mg PO BID PRN Patient Comments: TAKE ONE CAPSULE BY MOUTH TWICE A DAY WITH MEALS NEEDED FOR JOINT PAIN lovastatin 20 mg tablet 20 mg PO HS Patient Comments: TAKE ONE TABLET BY MOUTH EVERY EVENING tamsulosin 0.4 mg capsule 0.4 mg PO HS Patient Comments: TAKE ONE CAPSULE DAILY AT BEDTIME loratadine 10 mg tablet 10 mg PO DAILY Patient Comments: TAKE ONE TABLET BY MOUTH EVERY DAY cholecalciferol (vitamin D3) 50 mcg (2,000 unit) capsule 2,000 unit PO DAILY Patient Comments: TAKE ONE CAPSULE BY MOUTH EVERY DAY Discharge Instructions Instructions: Diverticulosis (GEN), Colorectal Polyps (GEN), Diverticulosis Diet (GEN) Additional Instructions: Adonis, we were able to complete your colonoscopy today without any difficulty. I did find a total of 7 polyps which I removed completely. They will all be sent off for testing, and once I know the nature of the polyps, I will be in touch with my recommendations for your next colonoscopy. Incidentally, you also have some diverticulosis. Diverticula are little weak spots in the muscular part of the colon wall. Keeping a diet that is rich in fiber, and staying well- hydrated are probably the best options in terms of taking care of it. Have attached some information here regarding polyps as well as diverticulosis. If you have any questions in the meantime, please do not hesitate to call or ask at any point 1. If tolerated, consume a soft, low fiber diet for 1-2 days. 2[address] Do not drive, drink alcohol, operate machinery, make critical decisions, or do activities that require coordination or balance for 24 hours. 3. Because air was put into your colon during the procedure, expelling air from your rectum (passing gas or farting) is normal. 4. You may not have a bowel movement for 1-3 days because of the colonoscopy prep. This is normal. 5. Go directly to the emergency room if you notice any of the following: Develop chills (warm to touch), or if you have a thermometer and your temperature is above 101 Difficulty breathing or difficultly swallowing Persistent vomiting Severe abdominal pain, other than gas cramps Severe chest pain Black, tarry stools Any bleeding ? exceeding one tablespoon 6. Call your physician if the site where your intravenous was started becomes red, swollen, painful, and warm to touch. 7. Your physician has reviewed your pre-procedure medications. Please continue to take those medications as previously ordered. You will be given specific information/education regarding any changes to your medications before leaving. Activity:: Activity as Tolerated Diet:: As Tolerated Discharge Orders Discharge Orders: Discharge Order (Routine); Ordered 12/10/23 Ordered By: Sushil Kidd DS: Diagnosis Discharge Diagnosis (1) Encounter for screening colonoscopy: Status: Acute Asessment and Plan: Follow-up on polypectomy results
--- NOTE | 2023-12-10 13:10 | W.COLOREPORT ---
Date of service: 12/11/23 Time of Service: 15:25 Colonoscopy Report Date of procedure: 12/11/23 Pre-op diagnosis general: screening colonoscopy Post-op diagnosis procedure note: other (Diverticulosis, colon polyps) Procedure: colonoscopy with polypectomy Surgeon: Sushil Kidd Anesthesia Type: General:No Airway Estimated blood loss (mL): 10 Pathology: other (0.25 cm colon polyps at 80 cm x 3, 0.5 cm polyp at 55 cm, 0.25 cm polyp at 25 cm x 2, 0.25 cm polyp at 15 cm) Complications: None Disposition: same day Indications: Marco Antonio is a 73 year old man with a history of adenomatous polyps who needs his next screening colonoscopy Prep: Miralax/Dulcolax Procedure Start Time: 14:56 Procedure End Time: 15:15 Retraction Time: 14 Findings: 0.25 cm colon polyps at 80 cm x 3, 0.5 cm polyp at 55 cm, 0.25 cm polyp at 25 cm x 2, 0.25 cm polyp at 15 cm Procedure Description: After the induction of monitored anesthetic care, and with the patient in left lateral decubitus position, I began by performing an external anorectal exam.? Perineum and skin were normal, as was the anal verge.? There was no evidence of external hemorrhoids.? Next, I performed a digital rectal exam.? I did not appreciate any abnormal findings.? Next, I advanced a colonoscope into the rectal vault.? I performed retroflexion.? This was normal.? Using insufflation, I then advanced the colonoscope beyond the rectal folds and into the sigmoid colon before advancing towards the cecum.? The scope was noted to be in the cecum by identification of the ileocecal valve and appendiceal orifice.? I then began withdrawing the colonoscope using repeated irrigation as necessary for full evaluation of the colonic mucosa. Around 80 cm from the anal verge were 3 polyps. They were all distinct, but in relative proximity to 1 another. They ranged in size from 0.25 cm to 0.5 cm. All 3 of these were quite flat. All were removed with cold forceps with minimal bleeding. Around 55 cm from the anal verge was another polyp. This was 0.5 cm and also flat. I removed this with cold forceps as well. Similarly, I found 2 more flat polyps at 25 cm (each 0.25 cm) and another polyp at 15 cm. This was also 0.25 cm. All of these polyps were flat, and similar to the others, these were all removed with cold forceps with minimal bleeding. Once the scope was withdrawn to the level of the rectum, great care was taken to examine portions of the rectal folds.? Finally, the scope was withdrawn and the patient was brought to the same-day surgery recovery unit as the anesthetic wore off. ?The findings and instructions were shared with the patient prior to discharge. No [place] Bowel Prep [place] Bowel Prep Right Colon: 2 Left Colon: 2 Transverse Colon: 2 Total Score: 6
[2023-12-11 11:45] VITALS: BP 124/92; PULSE 68; RESP 18; TEMP 36; O2SAT 95
[2023-12-11] MEDS: Lactated Ringers 1,000 ML 80 ML IV (12:51)
--- NOTE | 2023-12-11 13:23 | W.ANESPRE ---
General Info Date of Service Date Performed: 12/11/23 Height: 5 ft 5 in Weight: 83.6 kg Body Mass Index (BMI): 30.7 Surgical Procedure: Operation Date: 12/11/23 12:50 Proposed Procedure Side Surgeon ind[place] Kidd MD Meds Allergies and Home Medications Allergies Allergy/AdvReac Type Severity Reaction Status Date / Time atorvastatin Allergy Severe Other (See Verified 12/11/23 12:10 Comment) lisinopril Allergy Severe Other (See Verified 12/11/23 12:10 Comment) NSAIDS (Non-Steroidal Allergy Severe tongue Verified 12/11/23 12:10 Anti-Inflamma swells acetaminophen AdvReac Intermediate MONITORING Verified 12/11/23 12:10 LIVER PANELS Home Medication Medication Instructions Recorded citalopram 20 mg tablet 30 mg PO DAILY 11/30/12 triamcinolone acetonide 0.1 % 0 gm topical PRN PRN 11/30/12 topical cream Flonase 50 mcg/actuation nasal 50 mcg NS BID PRN 10/02/13 spray,suspension (fluticasone propionate) betamethasone valerate 0.1 % 15 gm topical Q12H PRN 06/06/14 topical ointment clobetasol 0.05 % scalp solution 50 ml topical Q12H PRN 06/06/14 pantoprazole 40 mg tablet,delayed 40 mg PO DAILY 06/06/14 release (Protonix) hydrochlorothiazide 12.5 mg capsule 12.5 mg PO DAILY 02/09/17 nitroglycerin 0.4 mg sublingual 0.4 mg sublingual PRN PRN 12/29/18 tablet cholecalciferol (vitamin D3) 50 2,000 unit PO DAILY 09/27/19 mcg (2,000 unit) tablet (Vitamin D3) clonazepam 1 mg tablet 1 mg PO BID 09/27/19 montelukast 10 mg tablet 10 mg PO DAILY 09/27/19 ziprasidone HCl 20 mg capsule 20 mg PO BID 06/10/20 fluticasone propionate 220 2 inh inhalation BID 08/28/22 mcg/actuation HFA aerosol inhaler (Flovent HFA) sildenafil 50 mg tablet 50 mg PO DAILY PRN 11/04/22 silver sulfadiazine 1 % topical 1 applic topical DAILY 11/04/22 cream aspirin 81 mg tablet,delayed 81 mg PO DAILY 03/23/23 release (Adult Aspirin Regimen) celecoxib 200 mg capsule 200 mg PO BID PRN 12/11/23 cholecalciferol (vitamin D3) 50 2,000 unit PO DAILY 12/11/23 mcg (2,000 unit) capsule loratadine 10 mg tablet 10 mg PO DAILY 12/11/23 lovastatin 20 mg tablet 20 mg PO HS 12/11/23 tamsulosin 0.4 mg capsule 0.4 mg PO HS 12/11/23 Current Visit Medications: Current Medications Generic Name Dose Route Start Last Admin Trade Name Freq PRN Reason Stop Dose Admin Hyoscyamine Sulfate 0.125 mg 12/10/23 13:11 Hyoscyamine 0.125 Mg Sl/Oral/Chew SL 01/09/24 13:10 DIRECTED PRN Ringer's Solution 1,000 mls @ 80 mls/hr 12/11/23 06:00 12/11/23 12:51 IV 12/11/23 23:59 80 mls/hr INFUSION TAMARA Administration IV Miscellaneous Supplies 1 each 12/11/23 06:00 Iv Access IV 12/11/23 23:59 DIRECTED TAMARA Ondansetron HCl 4 mg 12/10/23 13:11 Ondansetron 4 Mg/2 Ml Vial IVP 01/09/24 13:10 Q4H PRN PRN Nausea / Vomiting Sodium Chloride 0 ml 12/11/23 06:00 Normal Saline Flush 10 Ml Syr IV 12/11/23 23:59 PRN PRN Sodium Chloride 0 ml 12/11/23 06:00 Normal Saline 10 Ml Vial IJ 12/11/23 23:59 DIRECTED PRN Sterile Water 0 ml 12/11/23 06:00 Water,Injection,Sterile 10 Ml Vial IJ 12/11/23 23:59 DIRECTED PRN PFSH Active Problems Active Problems: Problem Status Onset Code Encounter for screening colonoscopy Z12.11 Displaced fracture of left acromial process 08/07/23 S42.122A 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 Z96.612 DJD AC joint, left 10/28/13 Tubulovillous adenoma of colon 06/19/17 D12.6 Erectile dysfunction N52.9 Urinary frequency R35.0 Knee pain, right M25.561 Hip pain, right M25.551 Primary osteoarthritis of right knee M17.11 Primary osteoarthritis of left knee M17.12 Trochanteric bursitis, right hip M70.61 Internal derangement of left knee M23.92 Tear of medial meniscus of left knee S83.242A S/P left knee arthroscopy 04/21/21 Z98.890 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 M19.211 Pain of right calf M79.661 Superficial thrombophlebitis of right leg I80.01 Superficial thrombophlebitis of right leg I80.01 Tendonitis of upper biceps tendon of left shoulder M75.22 Lumbar disc herniation M51.26 Status post ORIF of fracture of ankle Z98.890, Z87.81 Tendonitis involving left hip abductors M76.892 Rotator cuff tear arthropathy of left shoulder M75.102, M12.812 Medical History Medical History Tear of left rotator cuff (10/28/13) Palliative care patient Hyperlipidemia Diabetes mellitus Depression with anxiety Elevated LFTs Hearing loss Sciatica Dyspepsia Dermatitis, seborrheic Diverticulitis Fatty liver Nephrolithiasis Psoriasis Cervical radiculopathy Cervicalgia Rectal bleeding Colon polyps Chronic headaches Urinary frequency Right shoulder pain Ecchymoses, spontaneous Rash Left shoulder pain Renal insufficiency Shortness of breath Chest pain NST 04/2018 and tx with cholesterol meds has resolved Right knee pain Dyspnea on exertion Papule AAA (abdominal aortic aneurysm) 12/24/20: Max Diameter 4cm Bipolar disorder Anxiety COPD (chronic obstructive pulmonary disease) GERD (gastroesophageal reflux disease) HTN (hypertension) Hypercholesterolemia Surgical History Surgical History History of shoulder replacement left Hx of tonsillectomy H/O cataract extraction S/P hernia repair Colonoscopy - MAC (06/19/17) Tobacco Smoking/Tobacco Use Status: Former Tobacco Use Alcohol Alcohol Intake: never Substance Use Substance use: Never Substance use type: does not use Vital Signs and Lab Results Vital Signs Most Recent Vital Signs in EMR: Most Recent Vital Signs Temp Pulse Resp BP Pulse Ox 36 C L 68 18 124/92 H 95 12/11/23 11:45 12/11/23 11:45 12/11/23 11:45 12/11/23 11:45 12/11/23 11:45 Lab Results Blood Type / Crossmatch: No Data to Display Complete Blood Count: No Data to Display Complete Metabolic Panel: No Data to Display Liver Function Panel: No Data to Display Coagulation Panel: No Data to Display Cardiac Panel: No Data to Display Arterial Blood Gas: No Data to Display Venous Blood Gas: No Data to Display Pancreas Panel: No Data to Display Thyroid Panel: No Data to Display Infectious Disease: No Data to Display Blood Cultures: No Data to Display Toxicology Panel: No Data to Display Imaging and Studies Imaging and Studies Study information below may be from another EMR and interpreted by another provider. Please see original notes in EMR for more complete details. EKG Summary: EKG PATIENT NAME: Adonis Bernard #: [id number] ORDERING PROVIDER: iTerney Jordan M.D. PRIMARY CARE PROVIDER:TIERNEY JORDAN MD DATE/TIME OF SERVICE: 03/02/2334 : 1950PERFORMING LOCATION: [facility] APPROVED REPORT Exam: Resting ECG Reason for Exam: Medication Management Patient Location: O HR:64 bpm ECG Measurements Heart Rate 64 AXIS IL 168 P 72 QRSd 83 QRS 49 QT 400 T57 QTc 413 Conclusion Sinus rhythm...normal P axis, V-rate 50- 99 Normal Electrocardiogram <Electronically signed by NATAN CADET MD in OV> E-Sign Date: 03/02/23 E-Sign Time: 0855 Stress Test Summary: Impressions: - Abnormal study after pharmacologic stress. - Rec cardiac catheterization on basis of perfusion imaging. Summary: 1. Myocardial perfusion imaging: There is a moderate sized, moderately intense, predominantly reversible defect involving the inferior wall(s). This suggests moderate ischemia in the distribution of the right coronary artery. Overall ischemia: moderate. 2. No left ventricular regional motion abnormality. 04/16/18 Followed by normal cardiac cath 04/2018, resolution of chest pain following starting statin Echocardiogram Summary: Summary: 1. Left ventricle: The cavity size was normal. There was mild focal basal hypertrophy of the septum. Systolic function was normal. The estimated ejection fraction was 60-65%. Wall motion was normal; there were no regional wall motion abnormalities. 2. Right ventricle: The cavity size was normal. Wall thickness was normal. Systolic function was normal. 05/16/16 Anesthesia Assessment and Plan Anesthesia History Personal History: No History of Anesthesia Complications Family History: No Family History of Anesthesia Complications Exercise Tolerance Exercise Tolerance: Metabolic Equivalents>4 Cardiac & Pulmonary Exam Cardiac Exam: Normal S1/S2 Heart Sounds Pulmonary Exam: Other (Distant) Implantable Cardiac Device Does patient have a Pacemaker or an ICD?: No Airway Exam Known Difficult Airway: No Mallampati Class: 2 Mouth Opening: Normal (> 3cm) Thyromental Distance: Greater than 3 cm Neck Range of Motion: Limited ROM Neck Circumference: Normal Teeth Condition: Edentulous ASA Classification ASA Score: ASA 3 Emergency Case?: No NPO Status NPO Status: NPO Clears >2 hours, Solids >8 hours Anesthesia Plan Resuscitation Status: Full Code Anesthesia Technique: General Anesthesia Airway Planned: Natural Airway Monitors Used: Standard Monitors
[2023-12-11 13:29] VITALS: BMI 30.7
--- NOTE | 2023-12-11 14:36 | W.PREOPHP ---
Assessment and Plan Assessment and plan (1) Encounter for screening colonoscopy: Status: Acute Assessment and plan: We reviewed the plan for screening colonoscopy today, as well as the risks and benefits of the procedure. I think he has a very good understanding of this. We can proceed as planned. History of Present Illness History of Present Illness Chief Complaint: Screening colonoscopy Narrative: 73 y/o male with history of anxiety, depression, HLD, bipolar disorder, COPD, GERD and DM presents for colonoscopy screening pre-op. His last screening was in 2017, which was remarkable for tubulovillious adenoma and tubular adenoma. He denies a family history of colon cancer. He denies any changes in bowel habits including bloody or black tarry stools, abdominal pain, diarrhea or constipation. He denies constitutional symptoms. He denies chest pain, palpitations, dyspnea or dyspnea with exertion. He denies prior history or family history of adverse reactions or complications with anesthesia. The patient denies any history of stroke, [place], seizures, bleeding or clotting disorders. He has metal implanted in his left shoulder. Since his last office visit, there have been no significant interval changes to the history or physical. [facility] All Active Problems Encounter for screening colonoscopy (Acute) Displaced fracture of left acromial process (Acute 08/07/23) Status post reverse total arthroplasty of left shoulder (Acute 04/28/23) DJD AC joint, left (Acute 10/28/13) Tubulovillous adenoma of colon (Acute 06/19/17) Erectile dysfunction (Acute) Urinary frequency (Acute) Knee pain, right (Acute) Hip pain, right (Acute) Primary osteoarthritis of right knee (Acute) Steroid injection: 07/14/2020 Primary osteoarthritis of left knee (Acute) Trochanteric bursitis, right hip (Acute) Injection: 07/16/2021 Internal derangement of left knee (Acute) Tear of medial meniscus of left knee (Acute) S/P left knee arthroscopy (Acute 04/21/21) 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 (Acute) Pain of right calf (Acute) Superficial thrombophlebitis of right leg (Acute) Superficial thrombophlebitis of right leg (Acute) Tendonitis of upper biceps tendon of left shoulder (Acute) Lumbar disc herniation (Acute) Status post ORIF of fracture of ankle (Acute) Tendonitis involving left hip abductors (Acute) Trochanteric bursal steroid injection: 02/03/2023 Rotator cuff tear arthropathy of left shoulder (Acute) Medical History Tear of left rotator cuff (10/28/13) Palliative care patient Hyperlipidemia Diabetes mellitus Depression with anxiety Elevated LFTs Hearing loss Sciatica Dyspepsia Dermatitis, seborrheic Diverticulitis Fatty liver Nephrolithiasis Psoriasis Cervical radiculopathy Cervicalgia Rectal bleeding Colon polyps Chronic headaches Urinary frequency Right shoulder pain Ecchymoses, spontaneous Rash Left shoulder pain Renal insufficiency Shortness of breath Chest pain NST 04/2018 and tx with cholesterol meds has resolved Right knee pain Dyspnea on exertion Papule AAA (abdominal aortic aneurysm) 12/24/20: Max Diameter 4cm Bipolar disorder Anxiety COPD (chronic obstructive pulmonary disease) GERD (gastroesophageal reflux disease) HTN (hypertension) Hypercholesterolemia Surgical History History of shoulder replacement left Hx of tonsillectomy H/O cataract extraction S/P hernia repair Colonoscopy - MAC (06/19/17) Social History Smoking/Tobacco Use Status: Former Tobacco Use Quit Date: 08/28/00 Smoking risk assessment performed?: Yes Alcohol Intake: never Drug use: Never Substance use type: does not use Household members: spouse Housing: house Number of Children: 3 Communication Needs: Hard of Hearing current occupation: Retired Current gender identity: male What is your relationship status?: Panel score (0-1 are the most socially isolated patients): 1 What type of physical activity do you participate in: walking and additional Do you feel safe at home: Yes Do you feel safe in your relationship?: Yes Meds Allergies and Home Medications Allergies Allergy/AdvReac Type Severity Reaction Status Date / Time atorvastatin Allergy Severe Tongue Verified 12/11/23 14:01 swelling lisinopril Allergy Severe unknown Verified 12/11/23 14:01 NSAIDS (Non-Steroidal Allergy Severe tongue Verified 12/11/23 12:10 Anti-Inflamma swells acetaminophen AdvReac Intermediate MONITORING Verified 12/11/23 12:10 LIVER PANELS Home Medications Medication Instructions Recorded Confirmed Type citalopram 20 mg tablet 30 mg PO DAILY 11/30/12 12/11/23 History triamcinolone acetonide 0.1 % 0 gm topical PRN PRN 11/30/12 12/11/23 History topical cream Flonase 50 mcg/actuation nasal 50 mcg NS BID PRN 10/02/13 12/11/23 History spray,suspension (fluticasone propionate) betamethasone valerate 0.1 % 15 gm topical Q12H PRN 06/06/14 12/11/23 History topical ointment clobetasol 0.05 % scalp solution 50 ml topical Q12H PRN 06/06/14 12/11/23 History pantoprazole 40 mg tablet,delayed 40 mg PO DAILY 06/06/14 12/11/23 History release (Protonix) hydrochlorothiazide 12.5 mg capsule 12.5 mg PO DAILY 02/09/17 12/11/23 History nitroglycerin 0.4 mg sublingual 0.4 mg sublingual PRN PRN 12/29/18 12/11/23 History tablet cholecalciferol (vitamin D3) 50 2,000 unit PO DAILY 09/27/19 12/08/23 History mcg (2,000 unit) tablet (Vitamin D3) clonazepam 1 mg tablet 1 mg PO BID 09/27/19 12/11/23 History montelukast 10 mg tablet 10 mg PO DAILY 09/27/19 12/11/23 History ziprasidone HCl 20 mg capsule 20 mg PO BID 06/10/20 12/11/23 History fluticasone propionate 220 2 inh inhalation BID 08/28/22 12/11/23 History mcg/actuation HFA aerosol inhaler (Flovent HFA) sildenafil 50 mg tablet 50 mg PO DAILY PRN 11/04/22 12/11/23 History silver sulfadiazine 1 % topical 1 applic topical DAILY 11/04/22 12/11/23 History cream aspirin 81 mg tablet,delayed 81 mg PO DAILY 03/23/23 12/08/23 History release (Adult Aspirin Regimen) celecoxib 200 mg capsule 200 mg PO BID PRN 12/11/23 12/11/23 History cholecalciferol (vitamin D3) 50 2,000 unit PO DAILY 12/11/23 12/11/23 History mcg (2,000 unit) capsule loratadine 10 mg tablet 10 mg PO DAILY 12/11/23 12/11/23 History lovastatin 20 mg tablet 20 mg PO HS 12/11/23 12/11/23 History tamsulosin 0.4 mg capsule 0.4 mg PO HS 12/11/23 12/11/23 History Exam Const General: cooperative, healthy appearing and not in acute distress Neck Neck: normal visual inspection, no lymphadenopathy and supple Resp Effort & Inspection: normal respiratory effort Auscultation: clear to auscultation bilaterally Cardio Jugular venous pressure: no JVD Rate: regular rate Rhythm: regular rhythm Heart Sounds: S1 normal and S2 normal GI Inspection: normal to inspection Palpation: soft, no guarding, no hernias and nontender Percussion: normal to percussion Auscultation: normal bowel sounds Neuro General: patient alert, patient awake and patient oriented x3 Psych Appearance: grossly normal Results Last Vital Signs Temp 96.8 F L 12/11/23 11:45 Pulse 68 12/11/23 11:45 Resp 18 12/11/23 11:45 BP 124/92 H 12/11/23 11:45 Pulse Ox 95 12/11/23 11:45
--- NOTE | 2023-12-11 15:04 | BOWEL_PTH ---
PATIENT: Adonis Bernard LOC: [facility] U#:[id number] AGE/SX: 73/M ROOM: RE12/11/[address]: Sushil Kidd MD : [id number] BED: DIS: 12/11/2023 SPEC #: [id number] RECD: 12/11/23 17:40 STATUS: ANITA RE #: [id number] SANJU: 12/11/23 15:[address]: Sushil Kidd DEPT: Surgical Specimen RECD BY: Brenda Bal ENTERED: 12/11/23 17:42 SP TYPE: Bowel OTHR DR: Tierney Jordan V Tissues: 1 - BIOPSY BOWEL 2 - BIOPSY BOWEL 3 - BIOPSY BOWEL 4 - BIOPSY BOWEL Procedures: GROSS AND MICRO LEVEL 4 Comments: [id number]
[2023-12-11 15:23] VITALS: BP 113/87; PULSE 70; RESP 16; TEMP 36.3; O2SAT 95
[2023-12-11 15:33] VITALS: BP 127/82; PULSE 74; RESP 16; TEMP 36.6; O2SAT 98
--- NOTE | 2023-12-11 16:12 | W.ANESPOSTOP ---
Postoperative Evaluation Date, Time and Location Date Performed: 12/11/23 Time Performed: 15:40 Patient Location: Day Surgery Unit Vital Signs Most Recent Imported Vital Signs: Most Recent Vital Signs Temp Pulse Resp BP Pulse Ox 36.6 C 74 16 127/82 98 12/11/23 15:33 12/11/23 15:33 12/11/23 15:33 12/11/23 15:33 12/11/23 15:33 Pain Score Most Recent Pain Score: Most Recent Pain Score Pain Level 0 12/11/23 15:33 Assessment Mental Status: Awake (Alert & Oriented to Patient Baseline) Airway and Respiratory Function: Patent airway with normal (patient baseline) respiratory exam Cardiovascular Function: Hemodynamically Stable Hydration Status: Adequately Hydrated Nausea & Vomiting: No Nausea or Vomiting Pain: Pt. Denies Any Pain Peripheral Nerve Block: Patient did not receive a nerve block
== END 2023-12-11 16:18 | disposition home or self-care (01) ==
PROVIDERS: PCP Family Medicine; Visit Provider Surgery
PROC: 0DJD8ZZ Inspection of Lower Intestinal Tract, Via Natural or Artificial Opening Endoscopic (ICD-10-PCS; CPT 45378; principal; 2023-12-11 12:45)
DX: Z12.11 Encounter for screening for malignant neoplasm of colon (principal); D12.4 Benign neoplasm of descending colon; K57.30 Diverticulosis of large intestine without perforation or abscess without bleeding; K63.89 Other specified diseases of intestine; D12.5 Benign neoplasm of sigmoid colon
CPT/HCPCS: 45380; 88305; J2704

== ENCOUNTER 2024-01-17 08:43 | Outpatient (CLI) | payer MEDICARE, SELFPAY ==
--- NOTE | 2024-01-17 08:30 | DI.RAD_ITS ---
Exam(s) XR SHOULDER LT COMPLETE 2+V EXAM: XR SHOULDER LT COMPLETE 2+V CLINICAL HISTORY: F/U LEFT RTSA. TECHNIQUE: 2D digital imaging was performed. COMPARISON: CR XR SHOULDER LT COMPLETE 2+V from 10/18/2023 FINDINGS: Two views. There is stable position alignment of the components of the reverse prosthesis. No fracture nor loos ening evident. IMPRESSION: Stable satisfactory appearance. DATA REPOSITORY: RADIATION DOSE DELIVERED:
== END 2024-01-17 08:44 | disposition home or self-care (01) ==
LOC: DIORS 08:45
PROVIDERS: PCP Family Medicine; Referring Provider Family Medicine; Visit Provider Student in an Organized Health Care Education/Training Program
DX: S42.122D Displaced fracture of acromial process, left shoulder, subsequent encounter for fracture with routine healing (principal); X58.XXXD Exposure to other specified factors, subsequent encounter; Z96.612 Presence of left artificial shoulder joint
CPT/HCPCS: 99213; 73030

== ENCOUNTER 2024-04-30 15:24 | Outpatient (CLI) | payer MEDICARE, SELFPAY ==
--- NOTE | 2024-04-30 09:38 | DI.RAD_ITS ---
Exam(s) XR SHOULDER LT COMPLETE 2+V EXAM: XR SHOULDER LT COMPLETE 2+V CLINICAL HISTORY: f/u surgery. TECHNIQUE: 2D digital imaging was performed. Three images were obtained. Grashey, Y and axillary vi ews were obtained. COMPARISON: CR XR SHOULDER LT COMPLETE 2+V from 01/17/2024 FINDINGS: BONES: There are stable post operative changes of a left total reverse shoulder replacement present. No fracture or dislocation. JOINTS: The orthopedic hardware is in good position. No evidence of hardware loosening. Degenerativ e changes are seen at the acromioclavicular joint. SOFT TISSUE: Normal. IMPRESSION: Stable left total reverse shoulder replacement. DATA REPOSITORY: RADIATION DOSE DELIVERED:
== END 2024-04-30 15:25 | disposition home or self-care (01) ==
LOC: DIORS 15:25
PROVIDERS: PCP Family Medicine; Visit Provider Student in an Organized Health Care Education/Training Program
DX: Z96.612 Presence of left artificial shoulder joint (principal); Z47.1 Aftercare following joint replacement surgery; S42.122D Displaced fracture of acromial process, left shoulder, subsequent encounter for fracture with routine healing; X58.XXXD Exposure to other specified factors, subsequent encounter
CPT/HCPCS: 99213; 73030

== ENCOUNTER 2024-05-07 13:35 | Outpatient (REF) | payer MEDICARE, SELFPAY ==
[2024-05-07 17:25] LABS: HCT 42.6 % (40.0-50.0); HGB 13.4 g/dL (13.5-17.5); MCH 30.1 pg (27.0-33.0); MCHC 31.5 % (32.0-36.0); MCV 96 fL (80-95); MPV 11.2 fL (8.0-11.0); Platelet Count 133 10^3/uL (130-400); RBC 4.45 10^6/uL (4.36-5.78); RDW 14.9 % (11.8-14.1); RDW-SD 53.1 fL; WBC 4.53 10^3/uL (4.4-10.8)
[2024-05-07 17:48] LABS: ALT 28 U/L (16-63); AST 34 U/L (15-37); Albumin 3.7 g/dL (3.4-5.0); Alkaline Phosphatase 95 U/L (46-116); Anion Gap 8.3 mmol/L (3-11); BUN 16 mg/dL (7-18); Bilirubin, Total 0.31 mg/dL (0.2-1.0); CO2 29.7 mmol/L (21.0-32.0); CREATININE 1.2 mg/dL (0.70-1.30); Calcium 9.4 mg/dL (8.5-10.1); Chloride 103 mmol/L (98-107); Estimated GFR 63.46 (mL/min/1.73m2); Glucose 108 mg/dL (74-106); Sodium 141 mmol/L (136-145); Total Protein 7.7 g/dL (6.4-8.2)
== END 2024-05-07 13:36 | disposition home or self-care (01) ==
LOC: NCHCN 13:35
PROVIDERS: PCP Family Medicine; Visit Provider Family Medicine
DX: I10 Essential (primary) hypertension (principal); R23.3 Spontaneous ecchymoses
CPT/HCPCS: 80053; 85027

== ENCOUNTER 2024-06-20 11:19 | Outpatient (REF) | payer MEDICARE, SELFPAY ==
[2024-06-20 16:52] LABS: Abs Immature Grans 0.01 10^3/uL (0.0-0.06); Absolute Basophil Count 0.03 10^3/uL (0.0-0.2); Absolute Eosinophil Count 0.16 10^3/uL (0.0-0.7); Absolute Lymphocyte Count 1.31 10^3/uL (1.2-3.4); Absolute Monocyte Count 0.35 10^3/uL (0.1-0.8); Basophils % 0.6 %; Eosinophils % 3.4 %; HCT 42.1 % (40.0-50.0); HGB 13.7 g/dL (13.5-17.5); Immature Grans % 0.2 %; Lymphocytes % 28.1 %; MCH 30.9 pg (27.0-33.0); MCHC 32.5 % (32.0-36.0); MCV 95 fL (80-95); MPV 11.5 fL (8.0-11.0); Monocytes % 7.5 %; Neutrophils % 60.2 %; Platelet Count 145 10^3/uL (130-400); RBC 4.43 10^6/uL (4.36-5.78); RDW 14.9 % (11.8-14.1); RDW-SD 52.6 fL; WBC 4.66 10^3/uL (4.4-10.8)
[2024-06-20 17:45] LABS: Ferritin 50 ng/mL (26-388); Vitamin B12 440 pg/mL (193-986)
[2024-06-20 17:56] LABS: Folate > 20.0 ng/mL (8.6-20.0)
== END 2024-06-20 11:20 | disposition home or self-care (01) ==
LOC: NCHCN 11:19
PROVIDERS: PCP Family Medicine; Visit Provider Family Medicine
DX: D64.9 Anemia, unspecified (principal)
CPT/HCPCS: 82607; 82728; 82746; 85025

== ENCOUNTER 2024-08-13 03:11 | Emergency (ER) | payer MEDICARE, SELFPAY ==
--- NOTE | 2024-08-13 03:15 | W.ED.GENAD ---
Discharge Plan Disposition Patient Disposition: Home Condition: Good Discharge Details Clinical Impression: Cutaneous vasculitis Primary Care Provider: Tierney Jordan V ED Provider: Pranay Ziegler Meds and New Rx's Prescriptions: Continued clonazepam 1 mg Tablet 1 mg PO BID montelukast 10 mg Tablet 10 mg PO DAILY ziprasidone HCl 20 mg capsule 20 mg PO BID Rx Instructions: give with food (meal/snack) fluticasone propionate [Flonase] 16 GM spray,suspension 50 mcg NS BID PRN Patient Comments: +2 weeks 2 sprays prn betamethasone valerate 15 GM ointment 15 gm Topical Q12H PRN pantoprazole [Protonix] 40 MG tablet,delayed release (DR/EC) 40 mg PO DAILY clobetasol 50 ML solution 50 ml Topical Q12H PRN sildenafil 50 mg tablet 50 mg PO DAILY PRN Rx Instructions: administer 30 minutes to 4 hours before activity silver sulfadiazine 1 % cream 1 applic topical DAILY PRN Rx Instructions: apply a 1.5 mm thickness ketoconazole 2 % shampoo 1 applic topical ONCE pimecrolimus 1 % cream 1 applic topical BID Pulmicort Flexhaler 180 mcg/actuation aerosol powdr breath activated 1 inh inhalation BID triamcinolone acetonide 80 GM cream 0 gm Topical PRN PRN citalopram 20 MG tablet 30 mg PO DAILY hydrochlorothiazide 12.5 MG capsule 12.5 mg PO DAILY nitroglycerin 0.4 mg Tablet, Sublingual 0.4 mg Sublingual PRN PRN fluticasone propionate [Flovent HFA] 220 mcg/actuation HFA aerosol inhaler 2 inh INHALATION BID Patient Comments: INHALE TWO PUFFS BY MOUTH TWICE A DAY celecoxib 200 mg capsule 200 mg PO BID PRN Patient Comments: TAKE ONE CAPSULE BY MOUTH TWICE A DAY WITH MEALS NEEDED FOR JOINT PAIN lovastatin 20 mg tablet 20 mg PO HS Patient Comments: TAKE ONE TABLET BY MOUTH EVERY EVENING tamsulosin 0.4 mg capsule 0.4 mg PO HS Patient Comments: TAKE ONE CAPSULE DAILY AT BEDTIME loratadine 10 mg tablet 10 mg PO DAILY Patient Comments: TAKE ONE TABLET BY MOUTH EVERY DAY cholecalciferol (vitamin D3) 50 mcg (2,000 unit) capsule 2,000 unit PO DAILY Patient Comments: TAKE ONE CAPSULE BY MOUTH EVERY DAY Discharge Instructions Additional Instructions: You were seen for a rash on your right lower extremity that is likely related to the URI you have recovered from last week. Your exam and laboratory studies overall are reassuring. Suspect this rash will resolve on its own over period of time. Would like you to make an appointment with your primary care physician for follow-up. You should return to the ED if you develop any fever, chest pain, shortness of breath, GI symptoms, dark or bloody urine, other concerns. Referrals: Tierney Jordan MD [Primary Care Provider] - [facility] General Mode of arrival: ambulatory. Date/Time Provider Initiated Documentation: 08/13/24 03:13. Limitations to Documentation: no limitations. Information obtained by: patient and RN notes reviewed. HPI Narrative: Patient presents to ED with a rash on his right lower extremity that he first noticed 2 to 3 days ago. He has recently recovered from a URI about a week ago. Developed a rash on the right lower extremity in the [place] area a couple of days ago. It is not really painful, if anything it is more pruritic, somewhat painful when walking or with pressure on the area. Denies ever having this previously. Currently denies any type of fever, URI symptoms, shortness of breath, chest pain, abdominal pain, vomiting, diarrhea, urinary symptoms. Denies any change in his medications and has not started any new medications. No rash elsewhere on his body. Feels completely well otherwise and came to ED just to make sure this was not an infection. Related Data Home Medications ?Medication ?Instructions ?Recorded ?Confirmed citalopram 20 mg tablet 30 mg PO DAILY 11/30/12 08/13/24 triamcinolone acetonide 0.1 % 0 gm topical PRN PRN 11/30/12 08/13/24 topical cream Flonase 50 mcg/actuation nasal 50 mcg NS BID PRN 10/02/13 08/13/24 spray,suspension (fluticasone propionate) betamethasone valerate 0.1 % 15 gm topical Q12H PRN 06/06/14 08/13/24 topical ointment clobetasol 0.05 % scalp solution 50 ml topical Q12H PRN 06/06/14 08/13/24 pantoprazole 40 mg tablet,delayed 40 mg PO DAILY 06/06/14 08/13/24 release (Protonix) hydrochlorothiazide 12.5 mg capsule 12.5 mg PO DAILY 02/09/17 08/13/24 nitroglycerin 0.4 mg sublingual 0.4 mg sublingual PRN PRN 12/29/18 08/13/24 tablet clonazepam 1 mg tablet 1 mg PO BID 09/27/19 08/13/24 montelukast 10 mg tablet 10 mg PO DAILY 09/27/19 08/13/24 ziprasidone HCl 20 mg capsule 20 mg PO BID 06/10/20 08/13/24 fluticasone propionate 220 2 inh inhalation BID 08/28/22 08/13/24 mcg/actuation HFA aerosol inhaler (Flovent HFA) sildenafil 50 mg tablet 50 mg PO DAILY PRN 11/04/22 08/13/24 celecoxib 200 mg capsule 200 mg PO BID PRN 12/11/23 08/13/24 cholecalciferol (vitamin D3) 50 2,000 unit PO DAILY 12/11/23 08/13/24 mcg (2,000 unit) capsule loratadine 10 mg tablet 10 mg PO DAILY 12/11/23 08/13/24 lovastatin 20 mg tablet 20 mg PO HS 12/11/23 08/13/24 tamsulosin 0.4 mg capsule 0.4 mg PO HS 12/11/23 08/13/24 silver sulfadiazine 1 % topical 1 applic topical DAILY PRN 04/30/24 08/13/24 cream budesonide 180 mcg/actuation 1 inh inhalation BID 08/09/24 08/13/24 breath activated powder inhaler (Pulmicort Flexhaler) ketoconazole 2 % shampoo 1 applic topical ONCE 08/09/24 08/13/24 pimecrolimus 1 % topical cream 1 applic topical BID 08/09/24 08/13/24 Allergies Allergy/AdvReac Type Severity Reaction Status Date / Time atorvastatin Allergy Severe Tongue Verified 08/13/24 03:26 swelling lisinopril Allergy Severe unknown Verified 08/13/24 03:26 NSAIDS (Non-Steroidal Allergy Severe tongue Verified 08/13/24 03:26 Anti-Inflamma swells acetaminophen AdvReac Intermediate MONITORING Verified 08/13/24 03:26 LIVER PANELS General AMANDA: 4 Review of Systems Narrative: Per HPI Exam Narrative Exam Narrative: Const: WDWN elderly male in NAD. VS per triage. HEENT: NC/AT. Normal facial exam. Neck: Supple. Trachea midline. Lungs: Normal respiratory effort. Lungs are clear. Cor: RRR without murmur. Good radial and DP pulses. GI: Soft/ND/NT. Neuro: A+O x 3. Normal speech, mentation. Cranial nerves II - XII grossly intact. No gross motor or sensory deficit. Ext: No C/C/E. Skin: Petechial/purpuric nonblanchable rash with areas of blanchable erythema on the distal right lower extremity anteriorly. Medical Decision Making Patient presenting to ED with a new rash on the right lower extremity. There are petechiae and purpura present. There are no palpable purpura but rashes only been present for a couple of days. There is some associated erythematous blanching associated with this rash. It is described as pruritic and only painful at times when he walks or applies pressure to the area. Seems most consistent with cutaneous vasculitis probably related to the viral URI he had. May possibly be a drug eruption. He has never had this previously. He has not had any new medications prescribed and has not taken any medications that he has not used previously. He has no systemic symptoms. He is neurovascularly intact distally. He feels well otherwise and looks well. Will check CBC, CMP and urinalysis to evaluate for possible systemic problems. Labs have come back overall reassuring. He does have a thrombocytopenia with a platelet level of 116. Otherwise white count, hemoglobin, kidney function, liver function are all normal. Urinalysis does not show evidence of hematuria. Suspect that this rash will resolve itself over the next few weeks. I will have him follow-up with primary care, he is to call for an appointment. Return precautions are provided. Lab Data Lab results reviewed: Yes I reviewed the patient's lab results. Lab results narrative: see [facility] All Active Problems (Updated 08/13/24 @ 04:25 by Pranay Ziegler MD) Cutaneous vasculitis (Acute) Encounter for screening colonoscopy (Acute) Displaced fracture of left acromial process (Acute 08/07/23) Status post reverse total arthroplasty of left shoulder (Acute 04/28/23) DJD AC joint, left (Acute 10/28/13) Tubulovillous adenoma of colon (Acute 06/19/17) Erectile dysfunction (Acute) Urinary frequency (Acute) Knee pain, right (Acute) Hip pain, right (Acute) Primary osteoarthritis of right knee (Acute) Steroid injection: 07/14/2020 Primary osteoarthritis of left knee (Acute) Trochanteric bursitis, right hip (Acute) Injection: 07/16/2021 Internal derangement of left knee (Acute) Tear of medial meniscus of left knee (Acute) S/P left knee arthroscopy (Acute 04/21/21) 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 (Acute) Pain of right calf (Acute) Superficial thrombophlebitis of right leg (Acute) Superficial thrombophlebitis of right leg (Acute) Tendonitis of upper biceps tendon of left shoulder (Acute) Lumbar disc herniation (Acute) Status post ORIF of fracture of ankle (Acute) Tendonitis involving left hip abductors (Acute) Trochanteric bursal steroid injection: 02/03/2023 Rotator cuff tear arthropathy of left shoulder (Acute) Medical History Hyperplastic colon polyp (~11/2023) Tubular adenoma of colon (~11/2023) Tear of left rotator cuff (10/28/13) Palliative care patient Hyperlipidemia Diabetes mellitus Depression with anxiety Elevated LFTs Hearing loss Sciatica Dyspepsia Dermatitis, seborrheic Diverticulitis Fatty liver Nephrolithiasis Psoriasis Cervical radiculopathy Cervicalgia Rectal bleeding Colon polyps Chronic headaches Urinary frequency Right shoulder pain Ecchymoses, spontaneous Rash Left shoulder pain Renal insufficiency Shortness of breath Chest pain NST 04/2018 and tx with cholesterol meds has resolved Right knee pain Dyspnea on exertion Papule AAA (abdominal aortic aneurysm) 12/24/20: Max Diameter 4cm Bipolar disorder Anxiety COPD (chronic obstructive pulmonary disease) GERD (gastroesophageal reflux disease) HTN (hypertension) Hypercholesterolemia Surgical History History of shoulder replacement left Hx of tonsillectomy H/O cataract extraction S/P hernia repair Colonoscopy - MAC (11/2023) Social History Smoking/Tobacco Use Status: Former Tobacco Use Quit Date: 08/28/00 Smoking risk assessment performed?: Yes Alcohol Intake: never Drug use: Never Substance use type: does not use Household members: spouse Housing: house Number of Children: 3 Communication Needs: Hard of Hearing current occupation: Retired Current gender identity: male What is your relationship status?: Panel score (0-1 are the most socially isolated patients): 1 What type of physical activity do you participate in: walking and additional Do you feel safe at home: Yes Do you feel safe in your relationship?: Yes
[2024-08-13 03:16] VITALS: BP 146/74; PULSE 73; RESP 20; TEMP 36.2; O2SAT 94
[2024-08-13 03:53] LABS: Abs Immature Grans 0.03 10^3/uL (0.0-0.06); Absolute Basophil Count 0.02 10^3/uL (0.0-0.2); Absolute Eosinophil Count 0.17 10^3/uL (0.0-0.7); Absolute Lymphocyte Count 1.28 10^3/uL (1.2-3.4); Absolute Neutrophil Count 4.12 10^3/uL (1.2-6.7); Basophils % 0.3 %; Eosinophils % 2.8 %; HCT 42.3 % (40.0-50.0); HGB 13.6 g/dL (13.5-17.5); Immature Grans % 0.5 %; Lymphocytes % 20.9 %; MCH 30.8 pg (27.0-33.0); MCHC 32.2 % (32.0-36.0); MCV 96 fL (80-95); MPV 10.6 fL (8.0-11.0); Monocytes % 8.2 %; Neutrophils % 67.3 %; Platelet Count 116 10^3/uL (130-400); RBC 4.41 10^6/uL (4.36-5.78); RDW 14.6 % (11.8-14.1); RDW-SD 51.4 fL; WBC 6.12 10^3/uL (4.4-10.8)
[2024-08-13 04:05] LABS: ALT 24 U/L (16-63); AST 23 U/L (15-37); Albumin 3.3 g/dL (3.4-5.0); Alkaline Phosphatase 90 U/L (46-116); Anion Gap 8.6 mmol/L (3-11); BUN 18 mg/dL (7-18); Bilirubin, Total 0.45 mg/dL (0.2-1.0); CO2 29.4 mmol/L (21.0-32.0); CREATININE 1.3 mg/dL (0.70-1.30); Calcium 9.2 mg/dL (8.5-10.1); Chloride 103 mmol/L (98-107); Estimated GFR 57.65 (mL/min/1.73m2); Glucose 108 mg/dL (74-106); Potassium 3.5 mmol/L (3.5-5.1); Sodium 141 mmol/L (136-145); Total Protein 7.4 g/dL (6.4-8.2)
[2024-08-13 04:12] LABS: Bilirubin Negative (Negative); Blood Negative (Negative); Clarity Clear (Clear); Glucose Negative (Negative); Ketones Negative (Negative); Leukocyte Esterase Negative (Negative); Nitrite Negative (Negative); Specific Gravity >= 1.030 (1.005-1.025); Urobilinogen 0.2 mg/dL (Up to 0.2)
== END 2024-08-13 04:32 | disposition home or self-care (01) ==
LOC: ER 04:58
PROVIDERS: Emergency Provider Emergency Medicine; PCP Family Medicine
DX: L95.9 Vasculitis limited to the skin, unspecified (principal); I10 Essential (primary) hypertension; E78.5 Hyperlipidemia, unspecified; E11.9 Type 2 diabetes mellitus without complications; J44.9 Chronic obstructive pulmonary disease, unspecified; Z87.891 Personal history of nicotine dependence; D69.6 Thrombocytopenia, unspecified
CPT/HCPCS: 80053; 99283; 81003; 85025

== ENCOUNTER → 2024-08-26 14:33 | Outpatient (BNVA) | payer MEDICARE, SELFPAY | PROVIDERS: PCP Family Medicine; Referring Provider Family Medicine; Visit Provider Surgery | DX: K62.5 Hemorrhage of anus and rectum (principal) | CPT/HCPCS: 99214 ==

== ENCOUNTER 2024-08-26 16:02 | Outpatient (CLI) | payer MEDICARE, SELFPAY ==
[2024-08-26 16:10] LABS: Abs Immature Grans 0.02 10^3/uL (0.0-0.06); Absolute Basophil Count 0.02 10^3/uL (0.0-0.2); Absolute Eosinophil Count 0.14 10^3/uL (0.0-0.7); Absolute Lymphocyte Count 1.39 10^3/uL (1.2-3.4); Absolute Monocyte Count 0.48 10^3/uL (0.1-0.8); Absolute Neutrophil Count 5.35 10^3/uL (1.2-6.7); Basophils % 0.3 %; Eosinophils % 1.9 %; HCT 41.3 % (40.0-50.0); HGB 13.8 g/dL (13.5-17.5); Immature Grans % 0.3 %; Lymphocytes % 18.8 %; MCH 31.4 pg (27.0-33.0); MCHC 33.4 % (32.0-36.0); MCV 94 fL (80-95); MPV 10.7 fL (8.0-11.0); Monocytes % 6.5 %; Neutrophils % 72.2 %; Platelet Count 152 10^3/uL (130-400); RDW 14.1 % (11.8-14.1); RDW-SD 48.6 fL; Reticulocyte 1.1 % (0.5-2.4)
[2024-08-26 16:20] LABS: INR 1.1 (0.9-1.1); Prothrombin Time 10.7 sec (9.1-11.1)
[2024-08-26 17:30] LABS: Ferritin 60 ng/mL (26-388)
== END 2024-08-26 16:03 | disposition home or self-care (01) ==
LOC: LBO 16:05
PROVIDERS: PCP Family Medicine; Visit Provider Surgery
DX: R23.3 Spontaneous ecchymoses; K62.5 Hemorrhage of anus and rectum; R19.5 Other fecal abnormalities
CPT/HCPCS: 36415; 99214; 82728; 85025; 85045; 85610

== ENCOUNTER 2024-09-12 07:42 | Day surgery (SDC) | payer MEDICARE, SELFPAY ==
[2024-09-12 07:45] VITALS: BP 127/81; PULSE 70; RESP 18; TEMP 36.4; O2SAT 94
--- NOTE | 2024-09-12 08:29 | ANES.PREOP_ITS ---
General Info Date of Service Date Performed: 09/12/24 Height: 5 ft 5 in Weight: 80.7 kg Body Mass Index (BMI): 29.6 Surgical Procedure: Operation Date: 09/12/24 09:05 Proposed Procedure Side Surgeon p Gastroscopy Juwan Lorenzo MD Meds Allergies and Home Medications Allergies Allergy/AdvReac Type Severity Reaction Status Date / Time atorvastatin Allergy Severe Tongue Verified 09/12/24 08:22 swelling lisinopril Allergy Severe unknown Verified 09/12/24 08:22 NSAIDS (Non-Steroidal Allergy Severe tongue Verified 09/12/24 08:22 Anti-Inflamma swells acetaminophen AdvReac Intermediate MONITORING Verified 09/12/24 08:22 LIVER PANELS Home Medication ?Medication ?Instructions ?Recorded citalopram 20 mg tablet 30 mg PO DAILY 11/30/12 triamcinolone acetonide 0.1 % 0 gm topical PRN PRN 11/30/12 topical cream Flonase 50 mcg/actuation nasal 50 mcg NS BID PRN 10/02/13 spray,suspension (fluticasone propionate) betamethasone valerate 0.1 % 15 gm topical Q12H PRN 06/06/14 topical ointment clobetasol 0.05 % scalp solution 50 ml topical Q12H PRN 06/06/14 pantoprazole 40 mg tablet,delayed 40 mg PO DAILY 06/06/14 release (Protonix) hydrochlorothiazide 12.5 mg capsule 12.5 mg PO DAILY 02/09/17 nitroglycerin 0.4 mg sublingual 0.4 mg sublingual PRN PRN 12/29/18 tablet clonazepam 1 mg tablet 1 mg PO BID 09/27/19 ziprasidone HCl 20 mg capsule 20 mg PO BID 06/10/20 fluticasone propionate 220 2 inh inhalation BID 08/28/22 mcg/actuation HFA aerosol inhaler (Flovent HFA) sildenafil 50 mg tablet 50 mg PO DAILY PRN 11/04/22 celecoxib 200 mg capsule 200 mg PO BID PRN 12/11/23 cholecalciferol (vitamin D3) 50 2,000 unit PO DAILY 12/11/23 mcg (2,000 unit) capsule loratadine 10 mg tablet 10 mg PO DAILY 12/11/23 lovastatin 20 mg tablet 20 mg PO HS 12/11/23 tamsulosin 0.4 mg capsule 0.4 mg PO HS 12/11/23 silver sulfadiazine 1 % topical 1 applic topical DAILY PRN 04/30/24 cream budesonide 180 mcg/actuation 1 inh inhalation BID 08/09/24 breath activated powder inhaler (Pulmicort Flexhaler) ketoconazole 2 % shampoo 1 applic topical ONCE 08/09/24 pimecrolimus 1 % topical cream 1 applic topical BID 08/09/24 albuterol sulfate 90 mcg/actuation 2 inh inhalation Q6H 09/12/24 breath activated powder inhaler montelukast 10 mg tablet 10 mg PO DAILY 09/12/24 Current Visit Medications: Current Medications Generic Name Dose Route Start Last Admin Trade Name Freq PRN Reason Stop Dose Admin Ringer's Solution 1,000 mls @ 0 mls/hr 09/12/24 06:00 IV 09/12/24 23:59 INFUSION TAMARA Ringer's Solution 1,000 mls @ 80 mls/hr 09/12/24 07:45 IV 10/12/24 07:44 INFUSION TAMARA IV Miscellaneous Supplies 1 each 09/12/24 06:00 Iv Access IV 09/12/24 23:59 DIRECTED TAMARA Sodium Chloride 0 ml 09/12/24 06:00 Normal Saline Flush 10 Ml Syr IV 09/12/24 23:59 PRN PRN Sodium Chloride 0 ml 09/12/24 06:00 Normal Saline 10 Ml Vial IJ 09/12/24 23:59 DIRECTED PRN Sterile Water 0 ml 09/12/24 06:00 Water,Injection,Sterile 10 Ml Vial IJ 09/12/24 23:59 DIRECTED PRN PFSH Active Problems Active Problems: Problem Status Onset Code Heme positive stool Acute R19.5 Easy bruisability Acute R23.3 Thrombocytopenia Chronic D69.6 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 Encounter for screening colonoscopy Acute Z12.11 Displaced fracture of left acromial process Acute 08/07/23 S42.122A Status post reverse total arthroplasty of left shoulder Acute 04/28/23 Z96.612 DJD AC joint, left Acute 14 Tubulovillous adenoma of colon Acute 06/19/17 D12.6 Erectile dysfunction Acute N52.9 Urinary frequency Acute R35.0 Knee pain, right Acute M25.561 Hip pain, right Acute M25.551 Primary osteoarthritis of right knee Acute M17.11 Primary osteoarthritis of left knee Acute M17.12 Trochanteric bursitis, right hip Acute M70.61 Internal derangement of left knee Acute M23.92 Tear of medial meniscus of left knee Acute S83.242A S/P left knee arthroscopy Acute 04/21/21 Z98.890 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 Acute M19.211 Pain of right calf Acute M79.661 Superficial thrombophlebitis of right leg Acute I80.01 Superficial thrombophlebitis of right leg Acute I80.01 Tendonitis of upper biceps tendon of left shoulder Acute M75.22 Lumbar disc herniation Acute M51.26 Status post ORIF of fracture of ankle Acute Z98.890, Z87.81 Tendonitis involving left hip abductors Acute M76.892 Rotator cuff tear arthropathy of left shoulder Acute M75.102, M12.812 Medical History Medical History Hyperplastic colon polyp (~11/2023) Tubular adenoma of colon (~11/2023) Tear of left rotator cuff (10/28/13) Palliative care patient Hyperlipidemia Diabetes mellitus Depression with anxiety Elevated LFTs Hearing loss Sciatica Dyspepsia Dermatitis, seborrheic Diverticulitis Fatty liver Nephrolithiasis Psoriasis Cervical radiculopathy Cervicalgia Rectal bleeding Colon polyps Chronic headaches Urinary frequency Right shoulder pain Ecchymoses, spontaneous Rash Left shoulder pain Renal insufficiency Shortness of breath Chest pain NST 04/2018 and tx with cholesterol meds has resolved Right knee pain Dyspnea on exertion Papule AAA (abdominal aortic aneurysm) 12/24/20: Max Diameter 4cm Bipolar disorder Anxiety COPD (chronic obstructive pulmonary disease) GERD (gastroesophageal reflux disease) HTN (hypertension) Hypercholesterolemia Surgical History Surgical History History of shoulder replacement left Hx of tonsillectomy H/O cataract extraction S/P hernia repair Colonoscopy - MAC (11/2023) Tobacco Smoking/Tobacco Use Status: Former Tobacco Use Alcohol Alcohol Intake: never Substance Use Substance use: Never Substance use type: does not use Vital Signs and Lab Results Vital Signs Most Recent Vital Signs in EMR: Most Recent Vital Signs Temp Pulse Resp BP Pulse Ox 36.4 C L 70 18 127/81 94 09/12/24 07:45 09/12/24 07:45 09/12/24 07:45 09/12/24 07:45 09/12/24 07:45 Lab Results Blood Type / Crossmatch: No Data to Display Complete Blood Count: White Blood Count 7.40 10^3/uL (4.4-10.8) 08/26/24 15:54 Red Blood Count 4.40 10^6/uL (4.36-5.78) 08/26/24 15:54 Hemoglobin 13.8 g/dL (13.5-17.5) 08/26/24 15:54 Hematocrit 41.3 % (40.0-50.0) 08/26/24 15:54 Platelet Count 152 10^3/uL (130-400) 08/26/24 15:54 Complete Metabolic Panel: No Data to Display Liver Function Panel: No Data to Display Coagulation Panel: INR International Normalized Ratio 1.1 (0.9-1.1) 08/26/24 15:5 4 Prothrombin Time 10.7 sec (9.1-11.1) 08/26/24 15:54 Cardiac Panel: No Data to Display Arterial Blood Gas: No Data to Display Venous Blood Gas: No Data to Display Pancreas Panel: 2 No Data to Display Thyroid Panel: No Data to Display Infectious Disease: No Data to Display Blood Cultures: No Data to Display Toxicology Panel: No Data to Display Imaging and Studies Imaging and Studies Study information below may be from another EMR and interpreted by another provider. Please see original notes in EMR for more complete details. EKG Summary: EKG PATIENT NAME: Adonis Bernard #: [id number] ORDERING PROVIDER: Tierney Jordan M.D. PRIMARY CARE PROVIDER:TIERNEY JORDAN MD DATE/TIME OF SERVICE: 03/02/23 0734 : 1950PERFORMING LOCATION: [facility] APPROVED REPORT Exam: Resting ECG Reason for Exam: Medication Management Patient Location: O HR:64 bpm ECG Measurements Heart Rate 64 AXIS MD 168 P 72 QRSd 83 QRS 49 QT 400 T57 QTc 413 Conclusion Sinus rhythm...normal P axis, V-rate 50- 99 Normal Electrocardiogram <Electronically signed by NATAN CADET MD in OV> E-Sign Date: 03/02/23 E-Sign Time: 0855 Stress Test Summary: Impressions: - Abnormal study after pharmacologic stress. - Rec cardiac catheterization on basis of perfusion imaging. Summary: 1. Myocardial perfusion imaging: There is a moderate sized, moderately intense, predominantly reversible defect involving the inferior wall(s). This suggests moderate ischemia in the distribution of the right coronary artery. Overall ischemia: moderate. 2. No left ventricular regional motion abnormality. 04/16/18 Followed by normal cardiac cath 04/2018, resolution of chest pain following starting statin Echocardiogram Summary: Summary: 1. Left ventricle: The cavity size was normal. There was mild focal basal hypertrophy of the septum. Systolic function was normal. The estimated ejection fraction was 60-65%. Wall motion was normal; there were no regional wall motion abnormalities. 2. Right ventricle: The cavity size was normal. Wall thickness was normal. Systolic function was normal. 05/16/16 Anesthesia Assessment and Plan Anesthesia History Personal History: No History of Anesthesia Complications Family History: No Family History of Anesthesia Complications Exercise Tolerance Exercise Tolerance: Metabolic Equivalents<4 Pertinent Negatives Pertinent Negatives: No Major Cardiovascular Symptoms or Complaints and No Major Pulmonary Symptoms or Complaints Cardiac & Pulmonary Exam Cardiac Exam: Normal S1/S2 Heart Sounds Pulmonary Exam: Wheezing Present (exp wheeze, albuterol inhaler 2 puffs given) Implantable Cardiac Device Does patient have a Pacemaker or an ICD?: No Airway Exam Known Difficult Airway: No Mallampati Class: 2 Mouth Opening: Normal (> 3cm) Thyromental Distance: Greater than 3 cm Neck Range of Motion: Limited ROM Neck Circumference: Normal Teeth Condition: Edentulous (dentures left at home) ASA Classification ASA Score: ASA 3 Emergency Case?: No NPO Status NPO Status: NPO Clears >2 hours, Solids >8 hours Anesthesia Plan Resuscitation Status: Full Code Anesthesia Technique: General Anesthesia Airway Planned: Natural Airway Monitors Used: Standard Monitors
[2024-09-12 08:37] VITALS: BMI 29.6
[2024-09-12] MEDS: Lactated Ringers 1,000 ML 80 ML IV (08:40)
--- NOTE | 2024-09-12 09:05 | STOM_PTH ---
PATIENT: Adonis Bernard LOC: [facility] U#:[id number] AGE/SX: 74/M ROOM: RE09/12/[address]: Juwan Lorenzo : 1950 BED: DIS: 09/12/2024 SPEC #: [id number] RECD: 09/12/24 13:00 STATUS: ANITA JACINTO #: [id number] SANJU: 09/12/24 09:[address]: Juwan Lorenzo DEPT: Surgical Specimen RECD BY: Brenda Bal ENTERED: 09/12/24 13:02 SP TYPE: STOMACH OTHR DR: Tierney Jordan V Tissues: 1 - STOMACH BIOPSY 2 - STOMACH BIOPSY 3 - STOMACH BIOPSY Procedures: GROSS AND MICRO LEVEL 4 Comments: [id number]
[2024-09-12 09:19] VITALS: BP 109/81; PULSE 77; RESP 18; TEMP 36.9; O2SAT 93
--- NOTE | 2024-09-12 09:30 | W.PM.ENDDOP ---
Date of service: 09/12/24 Time of Service: 09:30 Endoscopy Report PROCEDURE DESCRIPTION: PROCEDURES PERFORMED: 1. EGD with biopsies 2. Cold forceps polypectomy x 2 PREOPERATIVE DIAGNOSIS: Occult stool positive, chronic GI bleeding POSTOPERATIVE DIAGNOSIS: Bile reflux, gastric polyps, small type I sliding hiatal hernia (1 cm slide) Hill grade 2 SURGEON: Anabel Lorenzo MD INDICATION FOR PROCEDURE: 74-year-old man who has had heme positive stool for quite some time. Unclear etiology. FINDINGS: D2/D3 = normal - no inflammation D1/bulb = normal - no ulcers or inflammation Pylorus = normal -bile was witnessed refluxing through the pylorus Antrum = chronically irritated/inflamed appearance, cold forceps biopsies were taken to rule out H. pylori routinely, bile was witnessed refluxing through the pylorus. Body = chronically inflamed appearance. Many polyps(at least 15). The polyps have an adenomatous appearance to them and are friable. They ooze of blood easily when manipulated with the endoscope. The 2 largest ones removed with cold forceps technique piecemeal for biopsy purposes. Cold forceps biopsies were taken separately of the mucosa lining. Fundus = chronically inflamed appearance. A couple of small benign?appearing polyps are present. These look different than the polyps in the body. Cardia = normal Hiatus = there is a small sliding hiatal hernia. About 1 cm slide. The hiatal defect is Hill grade 2. Distal esophagus = no visible inflammation, no esophagitis, no Dotson's, no stricture. I did not take biopsies because it appeared normal despite the hernia and the patient has no reflux complaints. Mid esophagus = normal Proximal esophagus/hypopharynx/vocal cords = normal SURVEILLANCE-INTERVAL/FOLLOW-UP: We will follow-up on the pathology results but ultimately, follow-up with PCP. GI referral may be necessary depending on the path of the gastric polyps. The gastric polyps may be the source of heme positive stool. Specimens: Yes EBL: Minimal COMPLICATIONS: None Procedure in detail: The patient gave written consent and was in agreement with the indications, the potential risks as well as the benefits of the procedure. The patient was taken to the endoscopy suite and laid on their left side. Anesthesia was given which was tolerated well. We performed a timeout and we are in agreement I started the procedure. A well-lubricated endoscope was gently and carefully advanced down the esophagus, into the stomach the scope was and through the pylorus into the duodenum. The scope was then slowly withdrawn with the above-noted findings/interventions. The patient tolerated the procedure well and was taken to recovery.
--- NOTE | 2024-09-12 09:39 | W.PM.DSUDISC ---
Date of service: 09/12/24 Discharge Plan Disposition Patient Disposition: Home Condition: Good Discharge Details Attending Provider: Juwan Lorenzo Primary Care Provider: Tierney Jordan V Home Meds and New Rx's Prescriptions: No Action clonazepam 1 mg Tablet 1 mg PO BID ziprasidone HCl 20 mg capsule 20 mg PO BID Rx Instructions: give with food (meal/snack) fluticasone propionate [Flonase] 16 GM spray,suspension 50 mcg NS BID PRN Patient Comments: +2 weeks 2 sprays prn betamethasone valerate 15 GM ointment 15 gm Topical Q12H PRN pantoprazole [Protonix] 40 MG tablet,delayed release (DR/EC) 40 mg PO DAILY clobetasol 50 ML solution 50 ml Topical Q12H PRN sildenafil 50 mg tablet 50 mg PO DAILY PRN Rx Instructions: administer 30 minutes to 4 hours before activity silver sulfadiazine 1 % cream 1 applic topical DAILY PRN Rx Instructions: apply a 1.5 mm thickness ketoconazole 2 % shampoo 1 applic topical ONCE pimecrolimus 1 % cream 1 applic topical BID Pulmicort Flexhaler 180 mcg/actuation aerosol powdr breath activated 1 inh inhalation BID triamcinolone acetonide 80 GM cream 0 gm Topical PRN PRN citalopram 20 MG tablet 30 mg PO DAILY hydrochlorothiazide 12.5 MG capsule 12.5 mg PO DAILY nitroglycerin 0.4 mg Tablet, Sublingual 0.4 mg Sublingual PRN PRN fluticasone propionate [Flovent HFA] 220 mcg/actuation HFA aerosol inhaler 2 inh INHALATION BID Patient Comments: INHALE TWO PUFFS BY MOUTH TWICE A DAY montelukast 10 mg tablet 10 mg PO DAILY Patient Comments: TAKE ONE TABLET BY MOUTH EVERY DAY albuterol sulfate 90 mcg/actuation aerosol powdr breath activated 2 inh inhalation Q6H celecoxib 200 mg capsule 200 mg PO BID PRN Patient Comments: TAKE ONE CAPSULE BY MOUTH TWICE A DAY WITH MEALS NEEDED FOR JOINT PAIN lovastatin 20 mg tablet 20 mg PO HS Patient Comments: TAKE ONE TABLET BY MOUTH EVERY EVENING tamsulosin 0.4 mg capsule 0.4 mg PO HS Patient Comments: TAKE ONE CAPSULE DAILY AT BEDTIME loratadine 10 mg tablet 10 mg PO DAILY Patient Comments: TAKE ONE TABLET BY MOUTH EVERY DAY cholecalciferol (vitamin D3) 50 mcg (2,000 unit) capsule 2,000 unit PO DAILY Patient Comments: TAKE ONE CAPSULE BY MOUTH EVERY DAY Discharge Instructions Additional Instructions: Findings: You have some polyps in your stomach which I think are probably bleeding(just a little bit). You should follow-up with your PCP to discuss. It is rare to need these polyps removed although that can be considered. Sometimes the polyps are secondary to medication side effects. You may need to talk to a GI doctor. Activity:: Activity as Tolerated Diet:: As Tolerated
[2024-09-12 10:00] VITALS: BP 115/80; PULSE 81; RESP 18; TEMP 36.9; O2SAT 93
--- NOTE | 2024-09-12 10:14 | W.ANESPOSTOP ---
Postoperative Evaluation Date, Time and Location Date Performed: 09/12/24 Time Performed: 10:14 Patient Location: Day Surgery Unit Vital Signs Most Recent Imported Vital Signs: Most Recent Vital Signs Temp Pulse Resp BP Pulse Ox 36.9 C 77 18 109/81 93 09/12/24 09:19 09/12/24 09:19 09/12/24 09:19 09/12/24 09:19 09/12/24 09:19 Pain Score Most Recent Pain Score: Most Recent Pain Score Pain Level 0 09/12/24 09:19 Assessment Mental Status: Awake (Alert & Oriented to Patient Baseline) Airway and Respiratory Function: Patent airway with normal (patient baseline) respiratory exam Cardiovascular Function: Hemodynamically Stable Hydration Status: Adequately Hydrated Nausea & Vomiting: No Nausea or Vomiting Pain: Pt. Denies Any Pain Peripheral Nerve Block: Patient did not receive a nerve block
== END 2024-09-12 10:25 | disposition home or self-care (01) ==
PROVIDERS: PCP Family Medicine; Visit Provider Student in an Organized Health Care Education/Training Program
PROC: 0DJ68ZZ Inspection of Stomach, Via Natural or Artificial Opening Endoscopic (ICD-10-PCS; CPT 43235; principal; 2024-09-12 09:00)
DX: K92.1 Melena (principal); K92.2 Gastrointestinal hemorrhage, unspecified; K31.7 Polyp of stomach and duodenum; K31.9 Disease of stomach and duodenum, unspecified
CPT/HCPCS: 43239; 88305; J2704

== ENCOUNTER 2025-05-22 17:31 | Outpatient (REF) | payer MEDICARE, SELFPAY ==
[2025-05-22 19:58] LABS: ALT 43 U/L (16-63); AST 39 U/L (15-37); Albumin 3.9 g/dL (3.4-5.0); Alkaline Phosphatase 96 U/L (46-116); Anion Gap 8.3 mmol/L (3-11); BUN 15 mg/dL (7-18); Bilirubin, Total 0.4 mg/dL (0.2-1.0); CO2 29.7 mmol/L (21.0-32.0); Calcium 9.5 mg/dL (8.5-10.1); Chloride 101 mmol/L (98-107); Estimated GFR 70.01 (mL/min/1.73m2); Glucose 96 mg/dL (74-106); Potassium 3.9 mmol/L (3.5-5.1); Sodium 139 mmol/L (136-145); Total Protein 7.5 g/dL (6.4-8.2)
[2025-05-22 20:03] LABS: HCT 47.7 % (40.0-50.0); HGB 15.7 g/dL (13.5-17.5)
[2025-05-22 20:30] LABS: Hemoglobin A1C 5.7 % (<5.7)
[2025-05-23 17:39] LABS: PSA, Screening 3.5 ng/mL (<=6.5)
== END 2025-05-22 17:32 | disposition home or self-care (01) ==
LOC: NCHCN 17:31
PROVIDERS: PCP Family Medicine; Visit Provider Family Medicine
DX: R73.03 Prediabetes (principal); I10 Essential (primary) hypertension; Z12.5 Encounter for screening for malignant neoplasm of prostate; D64.9 Anemia, unspecified
CPT/HCPCS: 80053; 84153; 83036; 85014; 85018

== ENCOUNTER 2025-06-04 11:25 | Outpatient (CLI) | payer MEDICARE, SELFPAY ==
--- NOTE | 2025-06-04 10:00 | DI.RAD_ITS ---
Exam(s) XR SHOULDER LT COMPLETE 2+V EXAM: XR SHOULDER LT COMPLETE 2+V CLINICAL HISTORY: F/U LEFT RTSA. TECHNIQUE: 2D digital imaging was performed. COMPARISON: CR XR SHOULDER LT COMPLETE 2+V from 04/30/2024 FINDINGS: Three views There is stable position alignment of the components of the reverse prosthesis. No fracture or loosening evident. No evidence of osteomyelitis. IMPRESSION: Stable satisfactory appearance of the left shoulder reverse prosthesis. DATA REPOSITORY: RADIATION DOSE DELIVERED:
== END 2025-06-04 11:26 | disposition home or self-care (01) ==
LOC: DIORS 11:25
PROVIDERS: PCP Family Medicine; Visit Provider Student in an Organized Health Care Education/Training Program
DX: S42.122D Displaced fracture of acromial process, left shoulder, subsequent encounter for fracture with routine healing (principal); Z96.612 Presence of left artificial shoulder joint; X58.XXXD Exposure to other specified factors, subsequent encounter
CPT/HCPCS: 99213; 73030